=== PATIENT | male | born 1930 | race Caucasian/White ===

== ENCOUNTER 2016-04-24 11:00 | Inpatient (IN) | payer MEDICARE, OTHER ==
[2016-04-24 12:23] LABS: Basophils # (A) 0.1 k/uL (0-0.2); Basophils % (A) 0 %; CH 31.9; CHCM 34.1; Eosinophils # (A) 0.1 k/uL (0-0.7); Eosinophils % (A) 1 %; HCT 41.8 % (39.0-53.0); HGB 14.2 gm/dL (13.0-17.5); Luc # (Auto) 0.17; Luc % (Auto) 1; Lymphocytes # (A) 0.8 k/uL (1.0-4.8); Lymphocytes % (A) 4 %; MCH 31.8 pg (25.0-35.0); MCHC 33.9 g/dL (31.0-37.0); Mean Platelet Volume 9.3; Monocytes # (A) 0.8 k/uL (0-1.0); Monocytes % (A) 4 %; Neutrophils # (A) 19.4 k/uL (1.3-7.7); Neutrophils % (A) 91 %; RBC 4.45 m/uL (4.30-5.90); RDW 13.7 % (11.5-15.5); WBC 21.4 k/uL (3.8-10.6); WBC (Perox) 22.09
[2016-04-24 12:33] LABS: Potassium 4.8 mmol/L (3.5-5.1); Total Bilirubin 0.6 mg/dL (0.2-1.3); Total Protein 6.5 g/dL (6.3-8.2)
[2016-04-24 12:49] LABS: INR 1.1 (<1.1); Partial Thromboplastin Time 26.1 sec (22.0-30.0); Prothrombin Time 11.1 sec (9.0-12.0)
[2016-04-24 12:56] LABS: Creatine Kinase MB 1.2 ng/mL (0.0-2.4); Troponin I 0.014 ng/mL (0.000-0.034)
--- NOTE | 2016-04-24 13:50 | XR ---
INDICATION: Weakness COMPARISON: Chest x-ray dated 01/04/16 FINDINGS: Single view of the chest is obtained. Status post median sternotomy. Enlarged heart size. Atherosclerotic vascular disease. Stable left lower lung zone opacity. Stable trace left pleural effusion. Bony elements are within normal limits. IMPRESSION: Status post median sternotomy. Enlarged heart size. Atherosclerotic vascular disease. Stable left lower lung zone opacity. Stable trace left pleural effusion.
[2016-04-24] MEDS ORDERED: HYDROcodone/APAP 5-325MG 1 EACH TAB PO STA (14:41)
[2016-04-24 15:26] LABS: Amorphous Sediment,Urine Occasional /hpf; Appearance,Urine Clear (Clear); Bacteria,Urine Many /hpf; Bilirubin,Urine Negative (Negative); Glucose,Urine (UA) Negative (Negative); Ketones,Urine Negative (Negative); Leukocyte Esterase,Urine Large (Negative); Mucus,Urine Rare /hpf; Nitrite,Urine Negative (Negative); PH, Urine 5.5 (5.0-8.0); Particle Count 4299; Protein,Urine 1+ (Negative); RBC,Urine 2 /hpf (0-5); Specific Gravity,Urine 1.013 (1.001-1.035); Squamous Epithelial Cell,Urine 1 /hpf (0-4); UA Billing (MACRO vs. MICRO) MICRO; Urobilinogen,Urine <2.0 mg/dL (<2.0); WBC,Urine 64 /hpf (0-5)
[2016-04-24] MEDS ORDERED: LEVOFLOXACIN 750MG-D5W PMX 750 MG in DEXTROSE/WATER 1 150ML.BAG IVPB STA (16:07)
[2016-04-24] MEDS ORDERED: ACETAMINOPHEN TAB 325 MG TAB PO PRN (16:12)
[2016-04-24] MEDS ORDERED: NALOXONE 0.4 MG/ML 1 ML VIAL IV PRN (16:12)
[2016-04-24] MEDS ORDERED: FUROSEMIDE 20 MG TAB PO PRN (16:18)
[2016-04-24] MEDS ORDERED: NITROGLYCERIN SL TABS 0.4 MG TAB SUBLINGUAL PRN (16:18)
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
[2016-04-24] MEDS: SODIUM CHLORIDE 0.9% 1,000 ML IV SCH (16:59)
[2016-04-24 18:20] VITALS: BMI 34.0
[2016-04-24] MEDS: INSULIN LISPRO (humaLOG) 300 UNIT/3 ML VIAL SQ SCH ×3 (18:31→21:24)
[2016-04-24 20:24] LABS: Glucose,Whole Blood 173 mg/dL (75-99)
[2016-04-24] MEDS ORDERED: INSULIN GLARGINE 100 UNIT/ML 10 ML VIAL SQ SCH (21:00)
[2016-04-24] MEDS ORDERED: DIAZEPAM 5 MG TAB PO SCH (21:00)
[2016-04-24] MEDS: METOPROLOL TARTRATE 25 MG TAB PO SCH (21:24)
[2016-04-24] MEDS: FAMOTIDINE 20 MG TAB PO SCH (21:24)
[2016-04-24] MEDS: HYDROcodone/APAP 5-325MG 1 EACH TAB PO SCH (22:14)
[2016-04-25] MEDS: HYDROcodone/APAP 5-325MG 1 EACH TAB PO SCH ×2 (04:17→17:30)
[2016-04-25] MEDS ORDERED: INSULIN LISPRO (humaLOG) 300 UNIT/3 ML VIAL SQ SCH ×2 (07:30→12:30)
[2016-04-25 07:53] LABS: Glucose,Whole Blood 171 mg/dL (75-99)
[2016-04-25 08:01] LABS: Basophils # (A) 0.1 k/uL (0-0.2); Basophils % (A) 1 %; CH 31.5; Eosinophils # (A) 0.3 k/uL (0-0.7); Eosinophils % (A) 3 %; HCT 38.9 % (39.0-53.0); HDW 2.67; HGB 12.6 gm/dL (13.0-17.5); Luc % (Auto) 2; Lymphocytes # (A) 1.2 k/uL (1.0-4.8); Lymphocytes % (A) 13 %; MCH 31.2 pg (25.0-35.0); MCHC 32.5 g/dL (31.0-37.0); MCV 96.2 fL (80.0-100.0); Mean Platelet Volume 8.5; Monocytes # (A) 0.6 k/uL (0-1.0); Monocytes % (A) 6 %; Neutrophils # (A) 7.4 k/uL (1.3-7.7); Neutrophils % (A) 76 %; RBC 4.04 m/uL (4.30-5.90); RDW 13.7 % (11.5-15.5); WBC 9.7 k/uL (3.8-10.6); WBC (Perox) 9.83
[2016-04-25 08:19] LABS: Calcium 8.7 mg/dL (8.4-10.2); Potassium 4.9 mmol/L (3.5-5.1)
[2016-04-25] MEDS: INSULIN LISPRO (humaLOG) 300 UNIT/3 ML VIAL SQ SCH ×4 (08:55→17:33)
[2016-04-25] MEDS: FAMOTIDINE 20 MG TAB PO SCH (08:57)
[2016-04-25] MEDS: METOPROLOL TARTRATE 25 MG TAB PO SCH (08:58)
[2016-04-25] MEDS ORDERED: ASPIRIN 81 MG CHEW PO SCH (09:00)
[2016-04-25] MEDS ORDERED: INSULIN GLARGINE 100 UNIT/ML 10 ML VIAL SQ SCH (09:00)
[2016-04-25] MEDS ORDERED: CLOPIDOGREL 75 MG TAB PO SCH (09:00)
[2016-04-25] MEDS ORDERED: ATORVASTATIN 10 MG TAB PO SCH (09:00)
[2016-04-25] MEDS ORDERED: EZETIMIBE 10 MG TAB PO SCH (09:00)
[2016-04-25 09:08] VITALS: RESP 18; TEMP 98
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
[2016-04-25 10:09] LABS: Hemoglobin A1C 7.3 % (4.2-6.1)
[2016-04-25 11:50] LABS: Glucose,Whole Blood 168 mg/dL (75-99)
[2016-04-25] MEDS ORDERED: LEVOFLOXACIN 500 MG TAB PO SCH (17:00)
[2016-04-25] MEDS ORDERED: LEVOFLOXACIN 250 MG TAB PO SCH (17:00)
[2016-04-25 17:27] LABS: Glucose,Whole Blood 93 mg/dL (75-99)
[2016-04-25] MEDS: SODIUM CHLORIDE 0.9% 1,000 ML IV SCH (17:31)
[2016-04-25 17:43] VITALS: BP 130/60; PULSE 69
--- NOTE | 2016-04-26 08:17 | DS ---
DATE OF ADMISSION: 04/24/2016 DATE OF DISCHARGE: 04/25/2016 FINAL DIAGNOSES: 1. Acute severe urinary tract infection causing severe medical debility, patient not able to get her activities of daily living on presentation. 2. Coronary artery disease, prior history of coronary artery bypass. 3. Chronic kidney disease stage III from diabetic nephropathy. 4. Hyperlipidemia. 5. Primary osteoarthritis in multiple joints, bilateral. 6. Left below knee amputation with processes chronic. 7. Chronic obstructive pulmonary disease in an ex-smoker. 8. Diabetes mellitus type 2, chronically on insulin. Patient presented extremely weak, tired decreased appetite, rundown, found to have a UTI, having received antibiotics. She was feeling much better. On exam, lungs are clear. CARDIOVASCULAR: First and second sounds normal. PSYCH: Alert and oriented x3. White count normal. Patient's BUN and creatinine were 37 and 1.87. DISCHARGE MEDICATIONS: 1. Valium 5 mg p.o. q.h.s. 2. V[place]orin 10/20 one tablet p.o. daily. 3. [place] 5 one-half tablet b.i.d. 4. Aspirin 81 mg daily. 5. Plavix 75 mg p.o. daily. 6. Nitrostat 0.4 sublingual q.5 p.r.n. 7. Vitamin D2 fifty thousand units on Monday. 8. Lasix 20 mg p.o. daily. 9. NovoLog 6 units with breakfast, 12 with lunch, 24 with supper. 10. 20 of Lantus in the morning, 40 of Lantus in the evening. 11. Lopressor 25 mg p.o. b.i.d. 12. Levaquin 250 mg a day for [address] Pope in one week. DC planning more than 35 minutes.
[2016-04-26] MEDS ORDERED: FAMOTIDINE 20 MG TAB PO SCH (09:00)
[2016-04-27] MEDS ORDERED: ERGOCALCIFEROL 50,000 UNIT CAP PO SCH (09:00)
== END 2016-04-25 17:55 | disposition home or self-care (01) | DRG 690 ==
LOC: EC 11:00 → OBSVTOIN 16:58 → 5MS5E 16:58
PROVIDERS: ADMIT Hospitalist; ATTEND Hospitalist
DX: N39.0 Urinary tract infection, site not specified (principal); E11.21 Type 2 diabetes mellitus with diabetic nephropathy; I48.0 Paroxysmal atrial fibrillation; J44.9 Chronic obstructive pulmonary disease, unspecified; E11.22 Type 2 diabetes mellitus with diabetic chronic kidney disease; E78.5 Hyperlipidemia, unspecified; I25.10 Atherosclerotic heart disease of native coronary artery without angina pectoris; M15.9 Polyosteoarthritis, unspecified; N18.3 Chronic kidney disease, stage 3 (moderate); F41.9 Anxiety disorder, unspecified; K57.90 Diverticulosis of intestine, part unspecified, without perforation or abscess without bleeding; Z79.02 Long term (current) use of antithrombotics/antiplatelets; Z79.4 Long term (current) use of insulin; Z79.82 Long term (current) use of aspirin; Z79.899 Other long term (current) drug therapy; Z87.891 Personal history of nicotine dependence; Z89.512 Acquired absence of left leg below knee; Z95.1 Presence of aortocoronary bypass graft; Z88.2 Allergy status to sulfonamides
CPT/HCPCS: 36415; 71010; 80048; 80053; 81001; 82550; 82553; 83036; 83605; 84484; 85025; 85610; 85730; 87502; 93005; 96365; 99285

== ENCOUNTER 2016-10-02 15:37 | Inpatient (IN) | payer MEDICARE, OTHER ==
[2016-10-02] MEDS ORDERED: ONDANSETRON 4 MG/2 ML VIAL IVP STA (16:03)
[2016-10-02] MEDS ORDERED: SODIUM CHLORIDE 0.9% 500 ML IV ONE ×2 (16:03→16:59)
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
[2016-10-02 16:29] LABS: Basophils # (A) 0.1 k/uL (0-0.2); Basophils % (A) 0 %; CH 32.5; CHCM 33.9; Eosinophils % (A) 0 %; HCT 40.1 % (39.0-53.0); HDW 2.66; HGB 13.3 gm/dL (13.0-17.5); Luc # (Auto) 0.12; Luc % (Auto) 1; Lymphocytes # (A) 0.5 k/uL (1.0-4.8); Lymphocytes % (A) 3 %; MCHC 33.3 g/dL (31.0-37.0); MCV 96.3 fL (80.0-100.0); Mean Platelet Volume 10.5; Monocytes # (A) 0.6 k/uL (0-1.0); Monocytes % (A) 4 %; Neutrophils # (A) 12.2 k/uL (1.3-7.7); Neutrophils % (A) 91 %; RBC 4.16 m/uL (4.30-5.90); WBC 13.4 k/uL (3.8-10.6); WBC (Perox) 13.81
[2016-10-02 16:38] LABS: ALT 19 U/L (21-72); AST 35 U/L (17-59); Alkaline Phosphatase 56 U/L (38-126); Amylase <30 U/L (30-110); Anion Gap 12 mmol/L; Blood Urea Nitrogen 52 mg/dL (9-20); Calcium 8.5 mg/dL (8.4-10.2); Carbon Dioxide 18 mmol/L (22-30); Chloride 103 mmol/L (98-107); Glucose 217 mg/dL (74-99); Non-African American GFR(MDRD) 32 (>60 ml/min/1.73 sqM); Potassium 5.9 mmol/L (3.5-5.1); Sodium 133 mmol/L (137-145); Total Bilirubin 1.4 mg/dL (0.2-1.3); Total Protein 6.5 g/dL (6.3-8.2)
--- NOTE | 2016-10-02 16:40 | XR ---
EXAMINATION TYPE: XR chest 2V DATE OF EXAM: 10/02/2016 COMPARISON: 04/24/2016 HISTORY: Fever TECHNIQUE: Frontal and lateral views of the chest are obtained. FINDINGS: There is general coarsening of interstitial markings and more on the left side. Heart size is normal. There are sternal wires. There is no gross heart failure. Bony thorax is intact. IMPRESSION: Pulmonary fibrotic changes similar to old exam. No heart failure. Pleural diaphragmatic scarring at the left lung base. Left-sided pneumonia cannot be entirely excluded.
[2016-10-02 16:41] LABS: INR 1.2 (<1.2); Prothrombin Time 11.5 sec (9.0-12.0)
[2016-10-02 18:01] LABS: Mucus,Urine Rare /hpf; Particle Count 31474; RBC,Urine 7 /hpf (0-5); Squamous Epithelial Cell,Urine 2 /hpf (0-4); WBC,Urine 138 /hpf (0-5)
[2016-10-02 18:11] LABS: Amorphous Sediment,Urine Rare /hpf; Appearance,Urine Cloudy (Clear); Bacteria,Urine Many /hpf; Bilirubin,Urine Negative (Negative); Glucose,Urine (UA) Negative (Negative); Ketones,Urine Trace (Negative); Leukocyte Esterase,Urine Large (Negative); Nitrite,Urine Negative (Negative); PH, Urine 5.5 (5.0-8.0); Protein,Urine 1+ (Negative); Specific Gravity,Urine 1.012 (1.001-1.035); UA Billing (MACRO vs. MICRO) MICRO; Urobilinogen,Urine <2.0 mg/dL (<2.0)
[2016-10-02] MEDS ORDERED: AZITHROMYCIN 500 MG in SODIUM CHLORIDE 0.9% 250 ML IVPB STA (18:23)
[2016-10-02] MEDS ORDERED: PNEUMONIA PROTOCOL UTILIZED 1 EACH MISC PO PRN (18:25)
[2016-10-02] MEDS: SODIUM CHLORIDE 0.9% 1,000 ML IV SCH (19:04)
[2016-10-02] MEDS ORDERED: HYDROcodone/APAP 5-325MG 1 EACH TAB PO STA ×2 (20:20)
[2016-10-02] MEDS: HYDROcodone/APAP 5-325MG 1 EACH TAB PO SCH (21:02)
[2016-10-02 21:29] LABS: Glucose,Whole Blood 143 mg/dL (75-99)
[2016-10-02 21:41] LABS: Hemoglobin A1C 7.4 % (4.2-6.1)
[2016-10-02] MEDS: INSULIN GLARGINE 100 UNIT/ML 10 ML VIAL SQ SCH (21:50)
[2016-10-02] MEDS: INSULIN LISPRO (humaLOG) 300 UNIT/3 ML VIAL SQ SCH (21:50)
[2016-10-02] MEDS: METOPROLOL TARTRATE 25 MG TAB PO SCH (21:51)
[2016-10-02 23:07] VITALS: BMI 34.4
[2016-10-03 05:57] LABS: Glucose,Whole Blood 101 mg/dL (75-99)
[2016-10-03] MEDS: INSULIN LISPRO (humaLOG) 300 UNIT/3 ML VIAL SQ SCH ×4 (06:13→21:40)
[2016-10-03] MEDS: IPRATROPIUM-ALBUTEROL 3 ML NEB INHALATION PRN ×3 (08:22→19:45)
[2016-10-03] MEDS: HYDROcodone/APAP 5-325MG 1 EACH TAB PO SCH ×2 (09:55→21:16)
[2016-10-03] MEDS: METOPROLOL TARTRATE 25 MG TAB PO SCH ×2 (09:56→21:40)
[2016-10-03] MEDS: AZITHROMYCIN 500 MG in SODIUM CHLORIDE 0.9% 250 ML IVPB SCH (09:56)
[2016-10-03] MEDS: ATORVASTATIN 10 MG TAB PO SCH (09:56)
[2016-10-03] MEDS: ASPIRIN 81 MG CHEW PO SCH (09:56)
[2016-10-03] MEDS: FUROSEMIDE 20 MG TAB PO SCH (09:56)
[2016-10-03] MEDS: CLOPIDOGREL 75 MG TAB PO SCH (09:56)
[2016-10-03] MEDS: INSULIN GLARGINE 100 UNIT/ML 10 ML VIAL SQ SCH ×2 (10:07→21:40)
--- NOTE | 2016-10-03 11:36 | XR ---
EXAMINATION TYPE: XR chest 2V DATE OF EXAM: 10/03/2016 COMPARISON: Prior chest x-ray dated 10/02/2016, CT 02/12/2014 HISTORY: Pneumonia TECHNIQUE: Frontal and lateral views of the chest are obtained. FINDINGS: Interstitial changes, probable chronic pleural reaction again noted. Patient is post media n sternotomy. Heart size is stable. There is underlying emphysema. No evident pneumothorax or pleural effusion. IMPRESSION: Interstitial lung disease. Postop changes. Correlate to exclude pulmonary venous hypertension and interstitial edema.
[2016-10-03 12:03] LABS: Basophils % (A) 0 %; CH 31.5; CHCM 33.4; Eosinophils % (A) 0 %; HCT 34.9 % (39.0-53.0); HDW 2.79; HGB 12.1 gm/dL (13.0-17.5); Luc # (Auto) 0.19; Luc % (Auto) 3; Lymphocytes # (A) 0.5 k/uL (1.0-4.8); Lymphocytes % (A) 7 %; MCH 32.9 pg (25.0-35.0); MCHC 34.7 g/dL (31.0-37.0); MCV 94.8 fL (80.0-100.0); Mean Platelet Volume 9.4; Monocytes # (A) 0.5 k/uL (0-1.0); Monocytes % (A) 6 %; Neutrophils # (A) 6.3 k/uL (1.3-7.7); Neutrophils % (A) 84 %; RBC 3.68 m/uL (4.30-5.90); RDW 13.3 % (11.5-15.5); WBC 7.6 k/uL (3.8-10.6); WBC (Perox) 7.71
[2016-10-03 12:05] LABS: Calcium 8.1 mg/dL (8.4-10.2); Potassium 4.3 mmol/L (3.5-5.1)
[2016-10-03] MEDS: EZETIMIBE 10 MG TAB PO SCH (13:31)
[2016-10-03] MEDS: ENOXAPARIN 30 MG/0.3 ML SYRINGE SQ SCH (13:35)
[2016-10-03 16:41] LABS: Glucose,Whole Blood 103 mg/dL (75-99)
[2016-10-03] MEDS: SODIUM CHLORIDE 0.9% 1,000 ML IV SCH ×2 (17:25→21:40)
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
[2016-10-03 21:33] LABS: Glucose,Whole Blood 213 mg/dL (75-99)
[2016-10-04 05:55] LABS: Glucose,Whole Blood 171 mg/dL (75-99)
[2016-10-04 06:49] LABS: Basophils % (A) 1 %; CH 32.2; Eosinophils # (A) 0.1 k/uL (0-0.7); Eosinophils % (A) 2 %; HCT 37.2 % (39.0-53.0); HDW 2.75; HGB 12.1 gm/dL (13.0-17.5); Luc # (Auto) 0.21; Luc % (Auto) 4; Lymphocytes # (A) 0.6 k/uL (1.0-4.8); Lymphocytes % (A) 11 %; MCH 31.9 pg (25.0-35.0); MCHC 32.6 g/dL (31.0-37.0); MCV 98.1 fL (80.0-100.0); Mean Platelet Volume 10.1; Monocytes # (A) 0.5 k/uL (0-1.0); Monocytes % (A) 9 %; Neutrophils # (A) 4.5 k/uL (1.3-7.7); Neutrophils % (A) 75 %; RBC 3.79 m/uL (4.30-5.90); RDW 14.1 % (11.5-15.5); WBC (Perox) 6.39
[2016-10-04 06:55] LABS: Calcium 8.1 mg/dL (8.4-10.2); Potassium 4.5 mmol/L (3.5-5.1)
[2016-10-04] MEDS: INSULIN LISPRO (humaLOG) 300 UNIT/3 ML VIAL SQ SCH ×6 (07:04→21:05)
[2016-10-04] MEDS: IPRATROPIUM-ALBUTEROL 3 ML NEB INHALATION PRN ×2 (08:02→11:57)
[2016-10-04] MEDS: ATORVASTATIN 10 MG TAB PO SCH (08:24)
[2016-10-04] MEDS: ENOXAPARIN 30 MG/0.3 ML SYRINGE SQ SCH (08:24)
[2016-10-04] MEDS: ASPIRIN 81 MG CHEW PO SCH (08:24)
[2016-10-04] MEDS: EZETIMIBE 10 MG TAB PO SCH (08:24)
[2016-10-04] MEDS: FUROSEMIDE 20 MG TAB PO SCH (08:24)
[2016-10-04] MEDS: CLOPIDOGREL 75 MG TAB PO SCH (08:24)
[2016-10-04] MEDS: METOPROLOL TARTRATE 25 MG TAB PO SCH ×2 (08:25→20:35)
[2016-10-04] MEDS: HYDROcodone/APAP 5-325MG 1 EACH TAB PO SCH ×2 (08:29→20:34)
[2016-10-04] MEDS: AZITHROMYCIN 500 MG in SODIUM CHLORIDE 0.9% 250 ML IVPB SCH (08:30)
[2016-10-04 11:55] LABS: Glucose,Whole Blood 129 mg/dL (75-99)
[2016-10-04] MEDS: INSULIN GLARGINE 100 UNIT/ML 10 ML VIAL SQ SCH ×2 (12:26→21:14)
[2016-10-04 16:40] LABS: Glucose,Whole Blood 151 mg/dL (75-99)
[2016-10-04] MEDS ORDERED: INSULIN LISPRO (humaLOG) 300 UNIT/3 ML VIAL SQ SCH (17:30)
[2016-10-04] MEDS: SODIUM CHLORIDE 0.9% 1,000 ML IV SCH (20:33)
[2016-10-04 21:01] LABS: Glucose,Whole Blood 103 mg/dL (75-99)
[2016-10-04 22:52] VITALS: RESP 20
[2016-10-05] MEDS: SODIUM CHLORIDE 0.9% 1,000 ML IV SCH ×2 (00:09→12:39)
[2016-10-05 07:41] VITALS: PULSE 66; TEMP 98.1
[2016-10-05] MEDS: HYDROcodone/APAP 5-325MG 1 EACH TAB PO SCH (08:47)
[2016-10-05] MEDS: INSULIN GLARGINE 100 UNIT/ML 10 ML VIAL SQ SCH (08:48)
[2016-10-05] MEDS: INSULIN LISPRO (humaLOG) 300 UNIT/3 ML VIAL SQ SCH ×4 (08:50→12:39)
[2016-10-05] MEDS ORDERED: ENOXAPARIN 40 MG/0.4 ML SYRINGE SQ SCH (09:00)
[2016-10-05 09:12] LABS: Glucose,Whole Blood 100 mg/dL (75-99)
[2016-10-05 09:25] LABS: Basophils # (A) 0.1 k/uL (0-0.2); Basophils % (A) 1 %; CH 32.3; CHCM 33.5; Eosinophils # (A) 0.4 k/uL (0-0.7); Eosinophils % (A) 4 %; HCT 40.9 % (39.0-53.0); HDW 2.83; HGB 13.2 gm/dL (13.0-17.5); Luc % (Auto) 3; Lymphocytes # (A) 0.7 k/uL (1.0-4.8); Lymphocytes % (A) 8 %; MCH 31.5 pg (25.0-35.0); MCHC 32.4 g/dL (31.0-37.0); MCV 97.1 fL (80.0-100.0); Mean Platelet Volume 10.2; Monocytes # (A) 0.6 k/uL (0-1.0); Monocytes % (A) 7 %; Neutrophils # (A) 6.4 k/uL (1.3-7.7); Neutrophils % (A) 77 %; RBC 4.21 m/uL (4.30-5.90); RDW 13.9 % (11.5-15.5); WBC 8.3 k/uL (3.8-10.6); WBC (Perox) 8.25
[2016-10-05 09:30] LABS: Calcium 8.2 mg/dL (8.4-10.2); Potassium 3.9 mmol/L (3.5-5.1)
[2016-10-05] MEDS: FUROSEMIDE 20 MG TAB PO SCH (10:40)
[2016-10-05] MEDS: EZETIMIBE 10 MG TAB PO SCH (10:40)
[2016-10-05] MEDS: CLOPIDOGREL 75 MG TAB PO SCH (10:41)
[2016-10-05] MEDS: ASPIRIN 81 MG CHEW PO SCH (10:41)
[2016-10-05] MEDS: ATORVASTATIN 10 MG TAB PO SCH (10:41)
[2016-10-05] MEDS: METOPROLOL TARTRATE 25 MG TAB PO SCH (10:41)
[2016-10-05] MEDS: AZITHROMYCIN 500 MG in SODIUM CHLORIDE 0.9% 250 ML IVPB SCH (11:52)
[2016-10-05 12:11] LABS: Glucose,Whole Blood 53 mg/dL (75-99)
[2016-10-05] MEDS ORDERED: HYDROcodone/APAP 5-325MG 1 EACH TAB PO PRN (12:19)
[2016-10-05 12:33] LABS: Glucose,Whole Blood 58 mg/dL (75-99)
[2016-10-05 12:40] VITALS: BP 142/68
[2016-10-05 12:41] LABS: Glucose,Whole Blood 94 mg/dL (75-99)
[2016-10-05 15:29] LABS: Appearance,Urine Clear (Clear); Bilirubin,Urine Negative (Negative); Glucose,Urine (UA) Negative (Negative); Ketones,Urine Negative (Negative); Leukocyte Esterase,Urine Negative (Negative); Nitrite,Urine Negative (Negative); Protein,Urine Negative (Negative); Specific Gravity,Urine 1.004 (1.001-1.035); UA Billing (MACRO vs. MICRO) CHEM; Urobilinogen,Urine <2.0 mg/dL (<2.0)
[2016-10-06] MEDS ORDERED: AZITHROMYCIN 500 MG TAB PO SCH (09:00)
--- NOTE | 2016-10-09 12:41 | P.PN ---
Progress Note - Text Date of service-10/04/2016 Presenting complaint-chills and rigors Interval history: Patient admitted with chills and right is felt to be acute UTI. Feels a little bit better. Did tolerate some diet. Laying in bed. Review of systems: Was done for constitutional, cardiovascular, GI, pulmonary. Genitourinary relevant finding as above Current medications are reviewed in the computer Physical exam: VITAL SIGNS: 98.1, 66, 20, 196/79, repeat 142/68, 94% on 2 L GENERAL: Laying in bed, not in distress EYES: Pupils equal. Conjunctiva normal. NECK: JVD not raised; masses not palpable. HEART: First and second heart sounds are normal; no edema. LUNGS: Respiratory rate normal; decreased breath sounds. ABDOMEN: Soft, nontender, liver spleen not palpable, no masses palpable. PSYCH: Alert and oriented x3; mood and affect normal. EXTREMITIES: Left below-knee amputation Investigations: White count 8.3, potassium 3.9, BUN 31, creatinine 1.50 Assessment: -Acute UTI causing sepsis, present on admission cultures pending. 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 Continue current medication treatment plan. Await culture results.
--- NOTE | 2016-10-09 13:04 | P.DS ---
Providers Date of admission: 10/02/16 18:20 Expected date of discharge: 10/05/16 Attending physician: Mg Wade Primary care physician: Prashanth Pope [facility] Course: Final diagnosis -Acute UTI causing sepsis, present on admission, secondary to E. 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 coli. Patient doing well by the time of discharge, afebrile asymptomatic rhythm with a normal white count. Doing well. Physical exam: Lungs-decreased breath sounds, cardiovascular heart sounds irregular, patient alert Patient Condition at Discharge: Fair Plan - Discharge Summary New Discharge Prescriptions: New Cephalexin [Keflex] 250 mg PO Q6HR #28 cap INSULIN LISPRO (humaLOG) [humaLOG (formulary)] 0 unit SQ ACHS vial Continue Ezetimibe/Simvastatin [Vytorin 10-20 mg Tablet] 1 tab PO DAILY Hydrocodone/Acetaminophen [[place] 5-325] 0.5 tab PO BID Aspirin 81 mg PO DAILY chew Clopidogrel [Plavix] 75 mg PO DAILY #30 tab Nitroglycerin Sl Tabs [Nitrostat] 0.4 mg SUBLINGUAL Q5M PRN #25 tab PRN Reason: Chest Pain Insulin Aspart [NovoLOG] 12 unit SQ AC-LUNCH Insulin Aspart [NovoLOG] 24 unit SQ AC-SUPPER Insulin Aspart [NovoLOG] 6 units SQ AC-BRKFST Insulin Glargine [Lantus] 30 unit SQ QAM Insulin Glargine [Lantus] 40 unit SQ HS Furosemide [Lasix] 20 mg PO DAILY Metoprolol Tartrate [Lopressor] 25 mg PO BID Discharge Medication List Ezetimibe/Simvastatin [Vytorin 10-20 mg Tablet] 1 tab PO DAILY 02/12/14 [History ] Hydrocodone/Acetaminophen [[place] 5-325] 0.5 tab PO BID 11/07/16 [History] Aspirin 81 mg PO DAILY chew 01/07/16 [Rx] Clopidogrel [Plavix] 75 mg PO DAILY #30 tab 01/07/16 [Rx] Nitroglycerin Sl Tabs [Nitrostat] 0.4 mg SUBLINGUAL Q5M PRN #25 tab 01/07/16 [Rx ] Furosemide [Lasix] 20 mg PO DAILY 04/24/16 [History] Insulin Aspart [NovoLOG] 6 units SQ AC-BRKFST 04/24/16 [History] Insulin Aspart [NovoLOG] 12 unit SQ AC-LUNCH 04/24/16 [History] Insulin Aspart [NovoLOG] 24 unit SQ AC-SUPPER 04/24/16 [History] Insulin Glargine [Lantus] 30 unit SQ QAM 04/24/16 [History] Insulin Glargine [Lantus] 40 unit SQ HS 04/24/16 [History] Metoprolol Tartrate [Lopressor] 25 mg PO BID 10/02/16 [History] Cephalexin [Keflex] 250 mg PO Q6HR #28 cap 10/05/16 [Rx] INSULIN LISPRO (humaLOG) [humaLOG (formulary)] 0 unit SQ ACHS vial 10/05/16 [Rx ] Follow up Appointment(s)/Referral(s): [facility], [NON-STAFF] - Prashanth Pope MD [Primary Care Provider] - 3 Days (Office closed, please call for appointment. ) Patient Instructions/Handouts: Heart Failure (DC), Urinary Tract Infection in Men (DC), Pneumonia (DC) Activity/Diet/Wound Care/Special Instructions: Cardiac, diabetic diet. Fall precautions. Up with assistance and prosthetic. Discharge Disposition: HOME WITH HOME HEALTH SERVICES
== END 2016-10-05 16:18 | disposition home health service (06) | DRG 872 ==
LOC: EC 15:37 → 6SEL 18:20 → 4MS4W 10-04 22:24
PROVIDERS: ADMIT Hospitalist; ATTEND Hospitalist
DX: A41.51 Sepsis due to Escherichia coli [E. coli] (principal); N17.9 Acute kidney failure, unspecified; E11.22 Type 2 diabetes mellitus with diabetic chronic kidney disease; E87.5 Hyperkalemia; I48.1 Persistent atrial fibrillation; N39.0 Urinary tract infection, site not specified; I13.0 Hypertensive heart and chronic kidney disease with heart failure and stage 1 through stage 4 chronic kidney disease, or unspecified chronic kidney disease; E86.0 Dehydration; I48.0 Paroxysmal atrial fibrillation; I50.9 Heart failure, unspecified; J44.9 Chronic obstructive pulmonary disease, unspecified; E78.5 Hyperlipidemia, unspecified; I25.10 Atherosclerotic heart disease of native coronary artery without angina pectoris; N18.3 Chronic kidney disease, stage 3 (moderate); R09.02 Hypoxemia; R74.8 Abnormal levels of other serum enzymes; R53.1 Weakness; H91.90 Unspecified hearing loss, unspecified ear; R11.0 Nausea; R26.9 Unspecified abnormalities of gait and mobility; R50.9 Fever, unspecified; I45.10 Unspecified right bundle-branch block; M19.91 Primary osteoarthritis, unspecified site; F41.9 Anxiety disorder, unspecified; R91.8 Other nonspecific abnormal finding of lung field; H26.9 Unspecified cataract; M79.1 Myalgia; Z95.1 Presence of aortocoronary bypass graft; Z79.899 Other long term (current) drug therapy; Z82.3 Family history of stroke; Z87.891 Personal history of nicotine dependence; Z89.512 Acquired absence of left leg below knee; Z79.4 Long term (current) use of insulin; Z88.2 Allergy status to sulfonamides; Z86.19 Personal history of other infectious and parasitic diseases; Z87.438 Personal history of other diseases of male genital organs; Z87.01 Personal history of pneumonia (recurrent); Z87.19 Personal history of other diseases of the digestive system; Z86.69 Personal history of other diseases of the nervous system and sense organs; Z79.02 Long term (current) use of antithrombotics/antiplatelets; Z99.3 Dependence on wheelchair; Z79.82 Long term (current) use of aspirin; Z79.891 Long term (current) use of opiate analgesic; Z80.9 Family history of malignant neoplasm, unspecified; Z81.1 Family history of alcohol abuse and dependence; V89.2XXS Person injured in unspecified motor-vehicle accident, traffic, sequela
CPT/HCPCS: 36415; 71020; 80048; 80053; 81001; 81003; 82150; 83036; 83605; 83690; 83880; 84484; 85025; 85610; 85730; 87040; 87077; 87086; 87186; 93005; 94640; 94760; 96361; 96365; 99285

== ENCOUNTER 2017-02-23 11:32 | Emergency (ER) | payer MEDICARE, OTHER ==
[2017-02-23] MEDS ORDERED: LIDOCAINE/EPINEPHR/TETRACAINE 5 ML BOTTLE TOPICAL ONE (12:02)
[2017-02-23] MEDS ORDERED: HYDROcodone/APAP 5-325MG 1 EACH TAB PO STA (12:03)
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
[2017-02-23] MEDS ORDERED: SILVER NITRATE APPLICATOR 1 EACH STICK..EA. TOPICAL STA (12:39)
[2017-02-23 14:01] VITALS: BP 135/63; PULSE 87; RESP 16; TEMP 97.3
== END 2017-02-23 14:13 | disposition home or self-care (01) ==
LOC: EC 11:32
DX: R04.0 Epistaxis (principal); M25.551 Pain in right hip; M25.552 Pain in left hip; G89.29 Other chronic pain; E78.5 Hyperlipidemia, unspecified; I25.10 Atherosclerotic heart disease of native coronary artery without angina pectoris; E11.9 Type 2 diabetes mellitus without complications; Z79.4 Long term (current) use of insulin; F41.9 Anxiety disorder, unspecified; Z87.891 Personal history of nicotine dependence; Z79.899 Other long term (current) drug therapy; Z88.2 Allergy status to sulfonamides; Z86.79 Personal history of other diseases of the circulatory system
CPT/HCPCS: 30901; 99283

== ENCOUNTER 2017-06-28 08:05 | Observation (INO) | payer MEDICARE, OTHER ==
[2017-06-28] MEDS ORDERED: NITROGLYCERIN OINT 1 INCH/GM PACKET TOPICAL STA (08:10)
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
--- NOTE | 2017-06-28 08:50 | XR ---
EXAMINATION TYPE: XR chest 2V DATE OF EXAM: 06/28/2017 COMPARISON: 02/21/2017 HISTORY: Shortness of breath TECHNIQUE: Frontal and lateral views of the chest are obtained. FINDINGS: Scattered senescent parenchymal changes noted. Hyperinflation compatible with COPD. Chronic left-side d pleural parenchymal opacity. No evidence for infiltrate. No evidence for atelectasis. Heart size is stable. Mediastinal structures are stable and grossly unremarkable. No evidence for hilar prominence. Degenerative changes dorsal spine. IMPRESSION: 1. Chronic changes without evidence for acute pulmonary disease.
[2017-06-28 08:53] LABS: Basophils # (A) 0.1 k/uL (0-0.2); Basophils % (A) 1 %; Eosinophils # (A) 0.5 k/uL (0-0.7); Eosinophils % (A) 4 %; HCT 43.6 % (39.0-53.0); HGB 14.4 gm/dL (13.0-17.5); Lymphocytes # (A) 1.6 k/uL (1.0-4.8); Lymphocytes % (A) 13 %; MCH 30.3 pg (25.0-35.0); MCHC 33.1 g/dL (31.0-37.0); MCV 91.4 fL (80.0-100.0); Mean Platelet Volume 9.6; Monocytes # (A) 0.7 k/uL (0-1.0); Monocytes % (A) 6 %; Neutrophils # (A) 8.8 k/uL (1.3-7.7); Neutrophils % (A) 75 %; Platelet Count 257 k/uL (150-450); RBC 4.77 m/uL (4.30-5.90); RDW 13.8 % (11.5-15.5); WBC 11.8 k/uL (3.8-10.6)
[2017-06-28 09:00] LABS: INR 1.1 (<1.2); Prothrombin Time 10.7 sec (9.0-12.0)
[2017-06-28 09:04] LABS: Albumin 3.7 g/dL (3.5-5.0); Calcium 9.1 mg/dL (8.4-10.2); Magnesium 2.1 mg/dL (1.6-2.3); Potassium 4.5 mmol/L (3.5-5.1); Total Bilirubin 0.5 mg/dL (0.2-1.3); Total Protein 6.4 g/dL (6.3-8.2)
[2017-06-28 09:14] LABS: Creatine Kinase 52 U/L (55-170)
[2017-06-28 09:28] LABS: Creatine Kinase MB 0.8 ng/mL (0.0-2.4); Troponin I <0.012 ng/mL (0.000-0.034)
[2017-06-28] MEDS ORDERED: NITROGLYCERIN SL TABS 0.4 MG TAB SUBLINGUAL PRN ×2 (10:26→16:41)
[2017-06-28] MEDS ORDERED: HEPARIN SODIUM,PORCINE 5,000 UNIT/ML 1 ML VIAL IV ONE (10:29)
[2017-06-28] MEDS ORDERED: HEPARIN SOD,PORK IN 0.45% NACL 25,000 UNIT in 0.45% NACL 1 500ML.BAG IV SCH (10:30)
[2017-06-28] MEDS: HYDROcodone/APAP 5-325MG 1 EACH TAB PO PRN ×2 (11:40→23:29)
[2017-06-28 15:28] LABS: Creatine Kinase MB 0.8 ng/mL (0.0-2.4); Troponin I 0.013 ng/mL (0.000-0.034)
[2017-06-28] MEDS ORDERED: DIAZEPAM 5 MG TAB PO PRN (16:41)
[2017-06-28] MEDS ORDERED: HYDROcodone/APAP 5-325MG 1 EACH TAB PO PRN (16:41)
[2017-06-28 16:58] LABS: Glucose,Whole Blood 155 mg/dL (75-99)
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
[2017-06-28] MEDS: INSULIN ASPART 100 UNIT/ML 1 ML 10 ML VIAL SQ SCH (17:34)
[2017-06-28] MEDS: NITROGLYCERIN OINT 1 INCH/GM PACKET TOPICAL SCH (20:37)
[2017-06-28 20:45] LABS: Creatine Kinase MB 0.9 ng/mL (0.0-2.4)
[2017-06-28] MEDS ORDERED: ATORVASTATIN 10 MG TAB PO SCH (21:00)
[2017-06-28] MEDS ORDERED: EZETIMIBE 10 MG TAB PO SCH (21:00)
[2017-06-28] MEDS ORDERED: INSULIN DETEMIR 100 UNIT/ML 10 ML VIAL SQ SCH (21:00)
[2017-06-28 21:25] LABS: Troponin I 0.02 ng/mL (0.000-0.034)
[2017-06-28 21:27] LABS: Glucose,Whole Blood 58 mg/dL (75-99)
[2017-06-28 21:49] LABS: Glucose,Whole Blood 68 mg/dL (75-99)
[2017-06-28 22:18] LABS: Glucose,Whole Blood 98 mg/dL (75-99)
[2017-06-28] MEDS: FUROSEMIDE 20 MG TAB PO SCH (23:23)
[2017-06-28] MEDS: METOPROLOL TARTRATE 25 MG TAB PO SCH (23:29)
[2017-06-29] MEDS ORDERED: HEPARIN SODIUM,PORCINE 5,000 UNIT/ML 1 ML VIAL IV PRN (00:04)
[2017-06-29] MEDS: NITROGLYCERIN OINT 1 INCH/GM PACKET TOPICAL SCH ×2 (00:08→06:47)
[2017-06-29 01:25] LABS: Cholesterol 97 mg/dL (<200); HDL Cholesterol 36 mg/dL (40-60); LDL Cholesterol,Calculated 41 mg/dL (0-99); Triglycerides 98 mg/dL (<150)
[2017-06-29 07:06] LABS: Glucose,Whole Blood 136 mg/dL (75-99)
[2017-06-29] MEDS ORDERED: INSULIN ASPART 100 UNIT/ML 1 ML 10 ML VIAL SQ SCH ×2 (07:30→12:30)
[2017-06-29 08:27] VITALS: RESP 18
[2017-06-29] MEDS ORDERED: ASPIRIN 325 MG TAB PO SCH (09:00)
[2017-06-29] MEDS ORDERED: CLOPIDOGREL 75 MG TAB PO SCH (09:00)
[2017-06-29] MEDS ORDERED: INSULIN DETEMIR 100 UNIT/ML 10 ML VIAL SQ SCH (09:00)
[2017-06-29 09:12] LABS: Glucose,Whole Blood 137 mg/dL (75-99)
[2017-06-29] MEDS ORDERED: ISOSORBIDE MONONITRATE ER 60 MG TAB.ER.24H PO SCH (09:45)
[2017-06-29] MEDS: FUROSEMIDE 20 MG TAB PO SCH (10:20)
[2017-06-29] MEDS ORDERED: REGADENOSON 0.4 MG/5 ML SYRINGE IV ONE (11:35)
[2017-06-29] MEDS ORDERED: AMINOPHYLLINE 500 MG/20 ML VIAL IV PRN (11:35)
[2017-06-29 12:25] LABS: Glucose,Whole Blood 138 mg/dL (75-99)
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
[2017-06-29] MEDS: HYDROcodone/APAP 5-325MG 1 EACH TAB PO PRN (14:35)
--- NOTE | 2017-06-29 14:46 | NM ---
EXAMINATION TYPE: NM stress lexiscan cardiolite DATE OF EXAM: 06/29/2017 COMPARISON: NONE HISTORY: Chest pain TECHNIQUE: After the intravenous administration of 10.3 mCi Tc 99m Sestamibi - Cardiolite resting SP ECT images acquired 45 minutes post injection. The patient received 0.4mg Lexiscan, 25.2 mCi Tc 99m Sestamibi - Stress images obtained [address] injection FINDINGS: Review of stress and rest SPECT images demonstrates no distinct perfusion abnormality. Gated analysi s shows normal wall motion with an estimated left ventricular ejection fraction of 52 %. IMPRESSION: No scintigraphic evidence for reversible ischemia.
--- NOTE | 2017-06-29 14:59 | P.DS ---
Providers Date of admission: 06/28/17 10:32 Attending physician: Rebeca Thompson Consults: 06/28/17 10:27 Consult Physician Urgent Consulting Provider: [facility] Consult Reason/Comments: Unstable angina Do you want consulting provider notified?: Yes Primary care physician: Prashanth Pope [facility] Course: 87-year-old came in with chest pressure like sensation patient underwent stress test which was negative patient was cleared by cardiology to be discharged patient will be discharged today please refer to my dictation of H&P for further details of hospitalization course and other medical problems. Imdur will be added to his coronary artery disease regimen Plan - Discharge Summary Discharge Rx Participant: No New Discharge Prescriptions: New Isosorbide Mononitrate ER [Imdur] 60 mg PO DAILY #30 tab No Action Ezetimibe/Simvastatin [Vytorin 10-20 mg Tablet] 1 tab PO HS Hydrocodone/Acetaminophen [Cameron 5-325] 1 tab PO BID PRN PRN Reason: Pain Aspirin 81 mg PO DAILY chew Clopidogrel [Plavix] 75 mg PO DAILY #30 tab Nitroglycerin Sl Tabs [Nitrostat] 0.4 mg SUBLINGUAL Q5M PRN #25 tab PRN Reason: Chest Pain Insulin Aspart [NovoLOG (formulary)] 18 unit SQ AC-SUPPER Insulin Glargine [Lantus] 30 unit SQ QAM Diazepam [Valium] 5 mg PO Q6H PRN PRN Reason: Anxiety Insulin Aspart [NovoLOG (formulary)] 8 unit SQ AC-BRKFST Insulin Aspart [NovoLOG (formulary)] 12 unit SQ AC-LUNCH Furosemide [Lasix] 20 mg PO BID Insulin Glargine [Lantus] 20 unit SQ HS Metoprolol Tartrate [Lopressor] 25 mg PO BID Discharge Medication List Ezetimibe/Simvastatin [Vytorin 10-20 mg Tablet] 1 tab PO HS 02/12/14 [History] Hydrocodone/Acetaminophen [Cameron 5-325] 1 tab PO BID PRN 01/04/16 [History] Aspirin 81 mg PO DAILY chew 01/07/16 [Rx] Clopidogrel [Plavix] 75 mg PO DAILY #30 tab 01/07/16 [Rx] Nitroglycerin Sl Tabs [Nitrostat] 0.4 mg SUBLINGUAL Q5M PRN #25 tab 11/10/16 [Rx ] Insulin Aspart [NovoLOG (formulary)] 18 unit SQ AC-SUPPER 04/24/16 [History] Insulin Glargine [Lantus] 30 unit SQ QAM 04/24/16 [History] Diazepam [Valium] 5 mg PO Q6H PRN 01/23/17 [History] Insulin Aspart [NovoLOG (formulary)] 8 unit SQ AC-BRKFST 02/20/17 [History] Insulin Aspart [NovoLOG (formulary)] 12 unit SQ AC-LUNCH 02/20/17 [History] Furosemide [Lasix] 20 mg PO BID 06/28/17 [History] Insulin Glargine [Lantus] 20 unit SQ HS 06/28/17 [History] Metoprolol Tartrate [Lopressor] 25 mg PO BID 06/28/17 [History] Isosorbide Mononitrate ER [Imdur] 60 mg PO DAILY #30 tab 06/29/17 [Rx] Follow up Appointment(s)/Referral(s): Prashanth Pope MD [Primary Care Provider] - 3 Days Discharge Disposition: HOME SELF-CARE
[2017-06-29 17:17] VITALS: BP 128/56; PULSE 57; TEMP 98
[2017-06-29 17:47] LABS: Glucose,Whole Blood 156 mg/dL (75-99)
[2017-06-29] MEDS: METOPROLOL TARTRATE 25 MG TAB PO SCH (17:51)
[2017-06-29] MEDS: INSULIN ASPART 100 UNIT/ML 1 ML 10 ML VIAL SQ SCH (18:57)
--- NOTE | 2017-07-03 10:17 | EST ---
EXERCISE STRESS AGE: 87 SEX: M HT: 5'10" WT: 235 PROTOCOL: Lexiscan Cardiolite Stress Test HEART RATE REST: 73 BLOOD PRESSURE REST: 154/60 MAXIMUM HEART RATE ACHIEVED: 90 MAXIMUM BLOOD PRESSURE: 157/45 INDICATIONS: Chest pain. CLINICAL INFORMATION: STRESS DATA: Pretesting physical examination showed a heart rate of 73, pressure is 154/60 mmHg. Baseline EKG showed sinus mechanism. A 0.4 mg of Lexiscan was given to the patient over 15 seconds per protocol. The max heart rate was 90 beats per minute and maximum pressure was 157/45 mmHg. Clinically, the patient did not have any symptoms of chest pain or discomfort and the EKG did not show any significant ST or T-wave abnormalities consistent with ischemia. CONCLUSION: 1. Nondiagnostic electrocardiogram stress testing in response to Lexiscan. 2. Please follow up on the Cardiolite portion on separate report from the Radiology Department. MMODL / IJN: [id number] /
== END 2017-06-29 20:30 | disposition home or self-care (01) ==
LOC: EC 08:05 → 3OBS 10:32
PROVIDERS: ADMIT Internal Medicine; ATTEND Internal Medicine
DX: R07.89 Other chest pain (principal); I13.0 Hypertensive heart and chronic kidney disease with heart failure and stage 1 through stage 4 chronic kidney disease, or unspecified chronic kidney disease; E11.22 Type 2 diabetes mellitus with diabetic chronic kidney disease; N18.3 Chronic kidney disease, stage 3 (moderate); I50.32 Chronic diastolic (congestive) heart failure; E11.21 Type 2 diabetes mellitus with diabetic nephropathy; I25.10 Atherosclerotic heart disease of native coronary artery without angina pectoris; I48.0 Paroxysmal atrial fibrillation; E03.9 Hypothyroidism, unspecified; E78.5 Hyperlipidemia, unspecified; H26.9 Unspecified cataract; E11.40 Type 2 diabetes mellitus with diabetic neuropathy, unspecified; K57.90 Diverticulosis of intestine, part unspecified, without perforation or abscess without bleeding; H43.393 Other vitreous opacities, bilateral; M13.0 Polyarthritis, unspecified; E04.1 Nontoxic single thyroid nodule; F41.9 Anxiety disorder, unspecified; Z87.01 Personal history of pneumonia (recurrent); Z95.1 Presence of aortocoronary bypass graft; Z89.512 Acquired absence of left leg below knee; Z87.891 Personal history of nicotine dependence; Z79.82 Long term (current) use of aspirin; Z79.02 Long term (current) use of antithrombotics/antiplatelets; Z79.4 Long term (current) use of insulin; Z79.899 Other long term (current) drug therapy; Z79.890 Hormone replacement therapy; Z88.2 Allergy status to sulfonamides; Z82.3 Family history of stroke; Z81.1 Family history of alcohol abuse and dependence; Z80.9 Family history of malignant neoplasm, unspecified
CPT/HCPCS: 99291 ×2; 96365 ×2; 96366 ×8; 36415; 93017; 83880; 80061; 80053; 82550; 82553; 83735; 84484; 85025; 85610; 85730 ×2; 71046; 78452; G0378 ×2; A9500; J1644 ×2; J2785

== ENCOUNTER 2017-08-11 14:20 | Emergency (ER) | payer MEDICARE, OTHER ==
[2017-08-11 14:40] VITALS: BP 152/70; PULSE 73; RESP 18; TEMP 96.9
[2017-08-11] MEDS ORDERED: SODIUM CHLORIDE 0.9% 1,000 ML IV STA (15:22)
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
== END 2017-08-11 17:23 | disposition home or self-care (01) ==
LOC: EC 14:20
DX: R10.9 Unspecified abdominal pain (principal); J32.9 Chronic sinusitis, unspecified; R53.1 Weakness; R53.83 Other fatigue; R43.9 Unspecified disturbances of smell and taste; E78.5 Hyperlipidemia, unspecified; I25.10 Atherosclerotic heart disease of native coronary artery without angina pectoris; I50.9 Heart failure, unspecified; E11.40 Type 2 diabetes mellitus with diabetic neuropathy, unspecified; Z87.891 Personal history of nicotine dependence; Z79.4 Long term (current) use of insulin; Z79.899 Other long term (current) drug therapy; Z88.2 Allergy status to sulfonamides; Z87.01 Personal history of pneumonia (recurrent); Z86.79 Personal history of other diseases of the circulatory system; Z53.20 Procedure and treatment not carried out because of patient's decision for unspecified reasons
CPT/HCPCS: 93005; 99284

== ENCOUNTER 2017-08-12 16:00 | Emergency (ER) | payer MEDICARE, OTHER ==
--- NOTE | 2017-08-12 16:55 | CT ---
EXAMINATION TYPE: CT brain wo con DATE OF EXAM: 08/12/2017 COMPARISON: NONE HISTORY: Syncope. CT DLP: 902.8 mGycm Automated exposure control for dose reduction was used. FINDINGS: There is cerebral cortical atrophy. There is patchy hypodensity in the periventricular white matter. There is no mass effect nor midline shift. There is no sign of intracranial hemorrhage. The calvarium appears intact. There is atherosclerotic vascular calcification. IMPRESSION: CEREBRAL ATROPHY AND CHRONIC SMALL VESSEL ISCHEMIA. NO ACUTE INTRACRANIAL ABNORMALITY.
--- NOTE | 2017-08-12 16:59 | XR ---
EXAMINATION TYPE: XR chest 2V DATE OF EXAM: 08/12/2017 COMPARISON: 06/28/2017 HISTORY: Chest pain TECHNIQUE: Frontal and lateral views of the chest are obtained. FINDINGS: There is some coarsening of interstitial pulmonary markings. There is slight blunting of l eft costophrenic angle and pleural thickening on the left lateral chest wall. Thoracic aorta is ather omatous. There are sternal wires. There is no heart failure. IMPRESSION: Pleural and pulmonary scarring in the left lower lobe is unchanged. No heart failure. Mi ld pulmonary fibrosis.
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
[2017-08-12 17:26] VITALS: BP 115/58; PULSE 85; RESP 18; TEMP 98
== END 2017-08-12 17:30 | disposition home or self-care (01) ==
LOC: EC 16:00
DX: R53.1 Weakness (principal); Z95.1 Presence of aortocoronary bypass graft; R07.9 Chest pain, unspecified; R51 Headache; M54.2 Cervicalgia; I25.10 Atherosclerotic heart disease of native coronary artery without angina pectoris; I50.9 Heart failure, unspecified; E78.5 Hyperlipidemia, unspecified; E11.40 Type 2 diabetes mellitus with diabetic neuropathy, unspecified; I48.0 Paroxysmal atrial fibrillation; Z95.818 Presence of other cardiac implants and grafts; Z87.891 Personal history of nicotine dependence; Z79.4 Long term (current) use of insulin; Z79.899 Other long term (current) drug therapy; Z88.2 Allergy status to sulfonamides
CPT/HCPCS: 70450; 71046; 93005; 99285

== ENCOUNTER 2017-09-06 10:11 | Inpatient (IN) | payer MEDICARE, OTHER ==
[2017-09-06] MEDS ORDERED: cefTRIAXone IN SWFI 2,000 MG/20 ML SYRINGE IVP STA (10:41)
[2017-09-06 10:44] LABS: Basophils # (A) 0.1 k/uL (0-0.2); Basophils % (A) 0 %; Eosinophils # (A) 0.3 k/uL (0-0.7); Eosinophils % (A) 2 %; HCT 38.1 % (39.0-53.0); HGB 12.7 gm/dL (13.0-17.5); Lymphocytes # (A) 0.5 k/uL (1.0-4.8); Lymphocytes % (A) 3 %; MCH 31.4 pg (25.0-35.0); MCHC 33.4 g/dL (31.0-37.0); MCV 94.1 fL (80.0-100.0); Mean Platelet Volume 9.3; Monocytes # (A) 1.1 k/uL (0-1.0); Monocytes % (A) 7 %; Neutrophils # (A) 13.4 k/uL (1.3-7.7); Neutrophils % (A) 86 %; Platelet Count 298 k/uL (150-450); RBC 4.05 m/uL (4.30-5.90); RDW 13.1 % (11.5-15.5); WBC 15.5 k/uL (3.8-10.6)
[2017-09-06 10:59] LABS: Albumin 2.9 g/dL (3.5-5.0); Calcium 8.6 mg/dL (8.4-10.2); Potassium 4.7 mmol/L (3.5-5.1); Total Bilirubin 0.6 mg/dL (0.2-1.3); Total Protein 5.5 g/dL (6.3-8.2)
--- NOTE | 2017-09-06 11:15 | XR ---
EXAMINATION TYPE: XR chest 2V DATE OF EXAM: 09/06/2017 COMPARISON: Prior chest x-ray 08/12/2017 HISTORY: Difficulty breathing TECHNIQUE: Frontal and lateral views of the chest are obtained. FINDINGS: Patient is post median sternotomy and rotated. Blunting of the left costophrenic angle is thought likely due to chronic pleural reaction. There is no evident pneumothorax. Interstitium is inc reased. Central vascularity is prominent. Patchy bilateral densities are present. IMPRESSION: Correlate for congestive heart failure. Follow-up is recommended.
[2017-09-06 11:21] LABS: INR 1.1 (<1.2); Partial Thromboplastin Time 26.8 sec (22.0-30.0); Prothrombin Time 10.8 sec (9.0-12.0)
[2017-09-06] MEDS ORDERED: FUROSEMIDE 10 MG/ML 4 ML VIAL IV STA (12:59)
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
[2017-09-06] MEDS ORDERED: NITROGLYCERIN SL TABS 0.4 MG TAB SUBLINGUAL PRN ×2 (13:18→13:26)
[2017-09-06] MEDS ORDERED: DIAZEPAM 5 MG TAB PO PRN (13:26)
[2017-09-06] MEDS ORDERED: FLUTICASONE 50MCG/SPRAY NASAL 16GM EA NOSTRIL PRN (13:26)
[2017-09-06 13:29] LABS: Creatine Kinase MB 0.5 ng/mL (0.0-2.4); Troponin I 0.034 ng/mL (0.000-0.034)
[2017-09-06] MEDS: HYDROcodone/APAP 5-325MG 1 EACH TAB PO PRN ×2 (15:40→23:15)
[2017-09-06 16:28] LABS: Glucose,Whole Blood 155 mg/dL (75-99)
[2017-09-06] MEDS: INSULIN ASPART 100 UNIT/ML 1 ML 10 ML VIAL SQ SCH ×2 (16:53→21:19)
[2017-09-06] MEDS: ONDANSETRON 4 MG/2 ML VIAL IVP PRN (16:53)
[2017-09-06 17:22] LABS: Creatine Kinase MB 0.6 ng/mL (0.0-2.4); Troponin I 0.031 ng/mL (0.000-0.034)
[2017-09-06] MEDS ORDERED: NON-FORMULARY DRUG (Ezetimibe/Simvastatin [Vytorin 10-20 Mg Tablet] 1 TAB) PO SCH (21:00)
[2017-09-06 21:02] LABS: Glucose,Whole Blood 201 mg/dL (75-99)
[2017-09-06] MEDS: EZETIMIBE 10 MG TAB PO SCH (21:19)
[2017-09-06] MEDS: METOPROLOL TARTRATE 25 MG TAB PO SCH (21:19)
[2017-09-06] MEDS: LORATADINE 10 MG TAB PO SCH (21:19)
[2017-09-06] MEDS: ATORVASTATIN 10 MG TAB PO SCH ×2 (21:19→21:24)
[2017-09-06 22:12] LABS: Cholesterol 107 mg/dL (<200); HDL Cholesterol 24 mg/dL (40-60); LDL Cholesterol,Calculated 66 mg/dL (0-99); Triglycerides 83 mg/dL (<150)
[2017-09-06 23:31] LABS: Creatine Kinase MB 0.7 ng/mL (0.0-2.4); Troponin I 0.026 ng/mL (0.000-0.034)
[2017-09-07 02:44] LABS: Hemoglobin A1C 6.6 % (4.0-6.0)
[2017-09-07 06:04] LABS: Glucose,Whole Blood 164 mg/dL (75-99)
[2017-09-07] MEDS: INSULIN ASPART 100 UNIT/ML 1 ML 10 ML VIAL SQ SCH ×6 (06:42→20:46)
[2017-09-07] MEDS ORDERED: ASPIRIN 325 MG TAB PO SCH (09:00)
[2017-09-07] MEDS ORDERED: FUROSEMIDE 20 MG TAB PO SCH (09:00)
[2017-09-07] MEDS: METOPROLOL TARTRATE 25 MG TAB PO SCH ×2 (09:12→20:46)
[2017-09-07] MEDS: CLOPIDOGREL 75 MG TAB PO SCH (09:12)
[2017-09-07] MEDS: ASPIRIN 81 MG PO SCH (09:12)
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
[2017-09-07] MEDS: HYDROcodone/APAP 5-325MG 1 EACH TAB PO PRN ×2 (11:30→23:46)
[2017-09-07 11:55] LABS: Glucose,Whole Blood 169 mg/dL (75-99)
[2017-09-07] MEDS ORDERED: ACETAMINOPHEN TAB 325 MG TAB PO PRN (12:04)
[2017-09-07] MEDS ORDERED: LORazepam 0.5 MG TAB PO PRN (12:04)
[2017-09-07] MEDS ORDERED: MELATONIN 3 MG TABLET PO PRN (12:04)
[2017-09-07] MEDS ORDERED: MAGNESIUM HYDROXIDE 2,400 MG/10 ML CUP PO PRN (12:04)
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
[2017-09-07] MEDS: guaiFENesin 600 MG TABLET.ER PO SCH ×2 (14:40→20:46)
[2017-09-07] MEDS: INSULIN DETEMIR 100 UNIT/ML 10 ML VIAL SQ SCH (14:42)
[2017-09-07] MEDS: IPRATROPIUM-ALBUTEROL 3 ML NEB INHALATION SCH ×4 (15:00→23:53)
[2017-09-07] MEDS: BUDESONIDE 1 MG/2 ML NEBU INHALATION SCH ×2 (15:01→20:04)
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
[2017-09-07 17:05] LABS: Glucose,Whole Blood 246 mg/dL (75-99)
--- NOTE | 2017-09-07 17:53 | ECHOF ---
Referral Reason:CHF MEASUREMENTS -------- HEIGHT: 152.4 cm WEIGHT: 88.5 kg BP: 116/58 IVSd: 1.5 cm (0.6 - 1.1) LVIDd: 4.3 cm (3.9 - 5.3) LVPWd: 1.2 cm (0.6 - 1.1) IVSs: 1.8 cm LVIDs: 3.3 cm LVPWs: 1.2 cm LA Diam: 3.9 cm (2.7 - 3.8) RVIDd: 3.5 cm (< 3.3) LAESV Index (A-L): 41.40 ml/m Ao Diam: 3.4 cm (2.0 - 3.7) LA Diam: 4.5 cm (2.7 - 3.8) AV Cusp: 1.7 cm (1.5 - 2.6) EPSS: 0.4 cm MV E Niels: 0.46 m/s MV DecT: 252 ms MV A Niels: 0.95 m/s MV E/A Ratio: 0.49 RAP: 5.00 mmHg RVSP: 18.23 mmHg MV EF SLOPE: 68.96 mm/s (70 - 150) MV EXCURSION: 17.57 mm (> 18.000) FINDINGS -------- Sinus rhythm. This was a technically adequate study. The left ventricular size is normal. There is moderate concentric left ventricular hypertrophy. O verall left ventricular systolic function is low-normal with, an EF between 50 - 55 %. The right ventricle is mild to moderately enlarged. The left atrium is moderately dilated. LA is severely dilated >40 ml/m2 The right atrial size is normal. There is mild aortic valve sclerosis. There is no evidence of aortic regurgitation. Mild mitral annular calcification present. Mild mitral regurgitation is present. Mild tricuspid regurgitation present. There is no evidence of pulmonary hypertension. The right v entricular systolic pressure, as measured by Doppler, is 18.23mmHg. There is no pulmonic regurgitation present. The aortic root size is normal. Echo free space represents a pericardial fat pad. CONCLUSIONS -------- 1. The left ventricular size is normal. 2. There is moderate concentric left ventricular hypertrophy. 3. Overall left ventricular systolic function is low-normal with, an EF between 50 - 55 %. 4. The right ventricle is mild to moderately enlarged. 5. The left atrium is moderately dilated. 6. LA is severely dilated >40 ml/m2 7. The right atrial size is normal. 8. There is mild aortic valve sclerosis. 9. Mild mitral annular calcification present. 10. Mild mitral regurgitation is present. 11. Mild tricuspid regurgitation present. 12. There is no evidence of pulmonary hypertension. 13. The right ventricular systolic pressure, as measured by Doppler, is 18.23mmHg. 14. There is no pulmonic regurgitation present. 15. The aortic root size is normal. 16. Echo free space represents a pericardial fat pad. TRAVEL SERVICES PROFESSIONAL: Arline Witt RDCS
[2017-09-07] MEDS: ATORVASTATIN 10 MG TAB PO SCH (20:36)
[2017-09-07 20:44] LABS: Glucose,Whole Blood 173 mg/dL (75-99)
[2017-09-07] MEDS: FUROSEMIDE 10 MG/ML 4 ML VIAL IV SCH (20:45)
[2017-09-07] MEDS: LORATADINE 10 MG TAB PO SCH (20:46)
[2017-09-07] MEDS: EZETIMIBE 10 MG TAB PO SCH (20:46)
[2017-09-08] MEDS: IPRATROPIUM-ALBUTEROL 3 ML NEB INHALATION SCH ×6 (03:57→23:53)
[2017-09-08 05:51] LABS: Glucose,Whole Blood 144 mg/dL (75-99)
[2017-09-08] MEDS: HYDROcodone/APAP 5-325MG 1 EACH TAB PO PRN ×2 (07:11→21:58)
[2017-09-08] MEDS: INSULIN ASPART 100 UNIT/ML 1 ML 10 ML VIAL SQ SCH ×7 (07:11→21:21)
[2017-09-08] MEDS: FUROSEMIDE 10 MG/ML 4 ML VIAL IV SCH ×2 (07:42→21:14)
[2017-09-08] MEDS: METOPROLOL TARTRATE 25 MG TAB PO SCH ×2 (07:43→21:49)
[2017-09-08] MEDS: guaiFENesin 600 MG TABLET.ER PO SCH ×2 (07:43→21:13)
[2017-09-08] MEDS: ASPIRIN 81 MG PO SCH (07:43)
[2017-09-08] MEDS: CLOPIDOGREL 75 MG TAB PO SCH (07:43)
[2017-09-08] MEDS: BUDESONIDE 1 MG/2 ML NEBU INHALATION SCH ×2 (08:11→19:41)
--- NOTE | 2017-09-08 08:20 | P.PN ---
Subjective Progress Note Date: 09/08/17 Principal diagnosis: CHF secondary to diastole dysfunction This is a pleasant 87-year-old gentleman with a past medical history significant for coronary artery disease and status post coronary artery bypass grafting 4 in 2004, diabetes, hypertension, dyslipidemia, and status post left below the knee amputation, was also noncompliant, presented to the hospital complaining of shortness of breath. He was in his usual state of health until about 3 days ago when he started experiencing progressive dyspnea associated with cough productive of sputum. No fever or chills. No chest pain or chest discomfort, dizziness or lightheadedness, heart racing or fluttering, or syncope. The chest x-ray showed findings consistent with CHF. The BNP was checked and came in to be around 2000. 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 The last echocardiogram was performed in 2015 and revealed normal LV function. The cardiac enzymes were checked and came in to be unremarkable. Also physical examination the patient does have bilateral expiratory wheezing there is no evidence of lower extremities edema. I'll follow-up with the patient today, he still complaining of shortness of breath. On physical examination he does have bilateral rhonchi and diminished breathing sounds no bilateral lower extremities edema. We don't have kidney function tests from today. He is on Lasix 40 mg IV twice a day which I will continue. I will obtain a BMP. We'll continue following up with him. The echocardiogram was performed yesterday showed normal LV function without any significant valvular abnormalities. Objective - Vital Signs Vital signs: Vital Signs Temp 98.5 F 09/08/17 07:40 Pulse 76 09/08/17 08:11 Resp 18 09/08/17 07:40 BP 93/53 09/08/17 07:40 Pulse Ox 94 L 09/08/17 07:40 Intake & Output 09/07/17 09/08/17 09/08/17 18:59 06:59 18:59 Intake Total 870 100 476 Output Total 450 755 Balance 420 -655 476 Weight 88.5 kg 89 kg Intake: IV 120 100 Invasive Line 1 20 cefTAZidime 2 gm In 100 100 Sodium Chloride 0.9% 100 ml @ 100 mls/hr IVPB Q12HR [facility] Rx#:[id number] Oral 750 476 Output: Urine 450 755 Other: Voiding Method Urinal Urinal Urinal Diaper Diaper Diaper # Voids 1 1 - Constitutional General appearance: Present: no acute distress - Respiratory Respiratory: bilateral: diminished - Cardiovascular Heart sounds: normal: S1, S2 - Labs CBC & Chem 7: 09/06/17 10:25 09/06/17 10:25 Labs: Abnormal Lab Results - Last 24 Hours (Table) 09/06/17 09/07/17 09/07/17 Range/Units 10:25 11:43 16:41 POC Glucose (mg/dL) 169 H 246 H (75-99) mg/dL Hemoglobin A1c 6.6 H (4.0-6.0) % 09/07/17 09/08/17 Range/Units 20:42 05:50 POC Glucose (mg/dL) 173 H 144 H (75-99) mg/dL Hemoglobin A1c (4.0-6.0) % Microbiology - Last 24 Hours (Table) 09/07/17 17:18 Sputum Culture - Preliminary Sputum 09/06/17 10:25 Blood Culture - Preliminary Blood No Growth after 24 hours
[2017-09-08 12:03] LABS: Glucose,Whole Blood 217 mg/dL (75-99)
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
[2017-09-08 17:03] LABS: Glucose,Whole Blood 208 mg/dL (75-99)
[2017-09-08 20:47] LABS: Glucose,Whole Blood 279 mg/dL (75-99)
[2017-09-08] MEDS: ATORVASTATIN 10 MG TAB PO SCH (21:13)
[2017-09-08] MEDS: LORATADINE 10 MG TAB PO SCH (21:13)
[2017-09-08] MEDS: EZETIMIBE 10 MG TAB PO SCH (21:13)
[2017-09-08] MEDS: INSULIN DETEMIR 100 UNIT/ML 10 ML VIAL SQ SCH (21:21)
--- NOTE | 2017-09-08 21:22 | PN ---
PROGRESS NOTE DATE OF SERVICE: 09/08/2017 PRESENTING COMPLAINT: Short of breath, cough. INTERVAL HISTORY: Patient presented with CHF exacerbation, bilateral pneumonia, congested. Started bringing up some sputum. Did eat a little bit. The patient has family visiting. Short of breath, cough. REVIEW OF SYSTEMS: Done for constitutional, cardiovascular, GI, pulmonary; relevant findings as above. CURRENT MEDICATIONS: Reviewed that include: 1. DuoNeb. 2. IV ceftazidime. 3. IV Lasix. EXAMINATION: Temperature 98.5, pulse 82, respirations 18, blood pressure 93/53, pulse ox 94% on 2L. GENERAL APPEARANCE: Lying in bed, tired appearing. A bit more awake. EYES: Pupils equal. Conjunctivae normal. HEENT: External appearance of nose and ears normal. Oral cavity normal. NECK: JVD unable to assess. Mass not palpable. RESPIRATORY: Effort increased. LUNGS: Decreased breath sounds. Prolonged expiration. Decreased coarse expiratory crackles. CARDIOVASCULAR: First and second sounds normal. No edema. ABDOMEN: Soft, nontender. Liver and spleen not palpable. PSYCHIATRY: Alert and oriented x3. Mood and affect a bit anxious-appearing. INVESTIGATIONS: Accu-Cheks are noted. ASSESSMENT: 1. Bilateral pneumonia, suspect gram-negative organism. The patient has scattered infiltrates on chest x-ray. On antibiotics, slow to respond. 2. Acute on chronic congestive heart failure exacerbation from diastolic dysfunction, ejection fraction 50%-55%. 3. Paroxysmal atrial fibrillation currently in sinus rhythm. 4. Coronary artery disease, history of coronary bypass. 5. Diabetes mellitus type 2, chronically on insulin. 6. Essential hypertension. 7. Primary osteoarthritis. 8. Left below-knee amputation. 9. Acute chronic obstructive pulmonary disease exacerbation in an ex-smoker. 10.Chronic medical debility. Patient is wheelchair bound. 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 12.CODE STATUS: DO NOT RESUSCITATE. PLAN: Patient will be kept on IV ceftazidime. I did speak to the nurse; will humidify the oxygen, and also spoke to the respiratory therapist, will give a flutter valve. The patient will be maintained on the current medications. Sputum has been sent off. Nothing is growing for right now. Care was discussed the patient and family at the bedside, slow to respond. MMODL / IJN: [id number] /
[2017-09-09] MEDS: IPRATROPIUM-ALBUTEROL 3 ML NEB INHALATION SCH ×5 (04:06→20:52)
[2017-09-09 06:19] LABS: Glucose,Whole Blood 146 mg/dL (75-99)
[2017-09-09 06:58] LABS: Basophils # (A) 0.1 k/uL (0-0.2); Basophils % (A) 1 %; Eosinophils # (A) 0.9 k/uL (0-0.7); Eosinophils % (A) 8 %; HCT 36.1 % (39.0-53.0); HGB 11.4 gm/dL (13.0-17.5); Lymphocytes # (A) 0.8 k/uL (1.0-4.8); Lymphocytes % (A) 7 %; MCH 30.1 pg (25.0-35.0); MCHC 31.7 g/dL (31.0-37.0); MCV 95.1 fL (80.0-100.0); Mean Platelet Volume 8.4; Monocytes # (A) 0.7 k/uL (0-1.0); Monocytes % (A) 6 %; Neutrophils # (A) 8.5 k/uL (1.3-7.7); Neutrophils % (A) 76 %; Platelet Count 276 k/uL (150-450); RDW 13.3 % (11.5-15.5); WBC 11.2 k/uL (3.8-10.6)
[2017-09-09] MEDS: INSULIN ASPART 100 UNIT/ML 1 ML 10 ML VIAL SQ SCH ×7 (07:04→21:19)
[2017-09-09 07:17] LABS: Calcium 8.1 mg/dL (8.4-10.2); Potassium 4.9 mmol/L (3.5-5.1)
[2017-09-09] MEDS: BUDESONIDE 1 MG/2 ML NEBU INHALATION SCH ×2 (08:07→20:52)
[2017-09-09] MEDS: guaiFENesin 600 MG TABLET.ER PO SCH ×2 (08:20→20:53)
[2017-09-09] MEDS: HYDROcodone/APAP 5-325MG 1 EACH TAB PO PRN ×2 (08:20→17:27)
[2017-09-09] MEDS: CLOPIDOGREL 75 MG TAB PO SCH (08:20)
[2017-09-09] MEDS: ASPIRIN 81 MG PO SCH (08:20)
--- NOTE | 2017-09-09 09:46 | P.PN ---
Subjective Progress Note Date: 09/09/17 Principal diagnosis: CHF secondary to diastole dysfunction This is a pleasant 87-year-old gentleman with a past medical history significant for coronary artery disease and status post coronary artery bypass grafting 4 in 2004, diabetes, hypertension, dyslipidemia, and status post left below the knee amputation, was also noncompliant, presented to the hospital complaining of shortness of breath. He was in his usual state of health until about 3 days ago when he started experiencing progressive dyspnea associated with cough productive of sputum. No fever or chills. No chest pain or chest discomfort, dizziness or lightheadedness, heart racing or fluttering, or syncope. The chest x-ray showed findings consistent with CHF. The BNP was checked and came in to be around 2000. 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 The last echocardiogram was performed in 2015 and revealed normal LV function. The cardiac enzymes were checked and came in to be unremarkable. Also physical examination the patient does have bilateral expiratory wheezing there is no evidence of lower extremities edema. I'll follow-up with the patient today, overall he is feeling better. He still have some shortness of breath. He still have bilateral crackles. The blood pressure has been on the low side. The creatinine is worse. I'm going to decrease the dose of metoprolol 12.5 mg by mouth twice a day, change the Lasix to by mouth, continue monitor the kidney function and electrolytes for additional 24 hours, and he is in process of having chest x-ray. Objective - Vital Signs Vital signs: Vital Signs Temp 97.7 F 09/09/17 08:00 Pulse 88 09/09/17 08:18 Resp 18 09/09/17 08:00 BP 92/54 09/09/17 08:00 Pulse Ox 93 L 09/09/17 08:00 Intake & Output 09/08/17 09/09/17 09/09/17 18:59 06:59 18:59 Intake Total 1726 Output Total 800 300 200 Balance 926 -300 -200 Weight 101 kg Intake: IV 110 Invasive Line 1 10 cefTAZidime 2 gm In 100 Sodium Chloride 0.9% 100 ml @ 100 mls/hr IVPB Q12HR [facility] Rx#:[id number] Oral 1616 Output: Urine 800 300 200 Other: Voiding Method Urinal Urinal Urinal Diaper Diaper Diaper # Voids 1 1 - Constitutional General appearance: Present: no acute distress - Respiratory Respiratory: bilateral: rales - Cardiovascular Heart sounds: normal: S1, S2 - Labs CBC & Chem 7: 09/09/17 06:28 09/09/17 06:28 Labs: Abnormal Lab Results - Last 24 Hours (Table) 09/08/17 09/08/17 09/08/17 Range/Units 11:35 16:16 20:46 WBC (3.8-10.6) k/uL RBC (4.30-5.90) m/uL Hgb (13.0-17.5) gm/dL Hct (39.0-53.0) % Neutrophils # (1.3-7.7) k/uL Lymphocytes # (1.0-4.8) k/uL Eosinophils # (0-0.7) k/uL Sodium (137-145) mmol/L Chloride (98-107) mmol/L BUN (9-20) mg/dL Creatinine (0.66-1.25) mg/dL Glucose (74-99) mg/dL POC Glucose (mg/dL) 217 H 208 H 279 H (75-99) mg/dL Calcium (8.4-10.2) mg/dL 09/09/17 09/09/17 09/09/17 Range/Units 06:17 06:28 06:28 WBC 11.2 H (3.8-10.6) k/uL RBC 3.80 L (4.30-5.90) m/uL Hgb 11.4 L (13.0-17.5) gm/dL Hct 36.1 L (39.0-53.0) % Neutrophils # 8.5 H (1.3-7.7) k/uL Lymphocytes # 0.8 L (1.0-4.8) k/uL Eosinophils # 0.9 H (0-0.7) k/uL Sodium 136 L (137-145) mmol/L Chloride 96 L (98-107) mmol/L BUN 61 H (9-20) mg/dL Creatinine 2.13 H (0.66-1.25) mg/dL Glucose 150 H (74-99) mg/dL POC Glucose (mg/dL) 146 H (75-99) mg/dL Calcium 8.1 L (8.4-10.2) mg/dL Microbiology - Last 24 Hours (Table) 09/06/17 10:25 Blood Culture - Preliminary Blood No Growth after 48 hours 09/07/17 17:18 Gram Stain - Preliminary Sputum Sputum Culture - Preliminary Assessment and Plan Assessment: Assessment #1 congestive heart failure exacerbation and known if it's due to systolic or diastolic function at this point. Probably secondary to diastolic dysfunction #2 cannot exclude #3 known CAD and status post CABG #4 no noncompliance with medications Plan #1 DC IV Lasix and start the patient on by mouth Lasix #2 monitor his kidney function and electrolytes #3 decrease the dose of metoprolol in view of the margin a low blood pressure #4 follow-up with the patient. Thank you for allowing us participate in his care and we'll continue following up with the patient
[2017-09-09] MEDS: FUROSEMIDE 40 MG TAB PO SCH (10:32)
[2017-09-09] MEDS: METOPROLOL TARTRATE 12.5 MG TAB PO SCH ×2 (10:32→20:53)
--- NOTE | 2017-09-09 11:11 | XR ---
EXAMINATION TYPE: XR chest 2V DATE OF EXAM: 09/09/2017 HISTORY: follow up. REFERENCE: Previous study dated 09/06/2017. FINDINGS: There has been a previous midline sternotomy. The lungs are overinflated. The heart is not enlarged. There is left basilar airspace disease. This h as progressed slightly from the previous study. There is some right basilar atelectasis. There is marline nting of the left CP angle. I could not exclude a small effusion. IMPRESSION: 1. COPD. 2. BIBASILAR INFILTRATES. 3. LEFT-SIDED EFFUSION.
[2017-09-09 11:37] LABS: Glucose,Whole Blood 233 mg/dL (75-99)
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
[2017-09-09 16:40] LABS: Glucose,Whole Blood 194 mg/dL (75-99)
--- NOTE | 2017-09-09 20:08 | PN ---
PROGRESS NOTE DATE OF SERVICE: 09/09/2017 PRESENTING COMPLAINT: Short of breath. INTERVAL HISTORY: The patient presents with CHF exacerbation, bilateral pneumonia, has been on Lasix and antibiotics, doing much better. Sputum is now minimal. Appetite is greatly improved. Overall feels much better. Slight cough. REVIEW OF SYSTEMS: Done for constitutional, cardiovascular, GI, pulmonary; relevant findings as above. CURRENT MEDICATIONS: Reviewed that include: 1. IV ceftazidime and. 2. P.o. Lasix. EXAMINATION: Temperature 97.1, pulse 93, respirations 16, blood pressure 146/78, pulse ox 93% on 3L. GENERAL APPEARANCE: Lying in bed, more comfortable. EYES: Pupils equal. Conjunctivae normal. HEENT: External appearance of nose and ears normal. Oral cavity normal. NECK: JVD not raised. Mass not palpable. RESPIRATORY: Effort increased. LUNGS: Decreased breath sounds. Improved air entry. CARDIOVASCULAR: First and second sounds normal. No edema. ABDOMEN: Soft, nontender. Liver and spleen not palpable. PSYCHIATRY: Alert and oriented x3. Mood and affect normal. INVESTIGATIONS: White count 11.2, hemoglobin 9.4. Potassium 4.9, BUN 61, creatinine 2.13. ASSESSMENT: 1. Bilateral pneumonia, suspect gram-negative organism, clinical improvement. 2. Acute on chronic congestive heart failure exacerbation from diastolic dysfunction, ejection fraction 50-55%, euvolemic. 3. Acute renal failure from diuresis. The patient's creatinine has gone from 1.38 to 2.13. 4. Paroxysmal atrial fibrillation, currently in sinus rhythm. 5. Coronary artery disease with prior history of bypass. 6. Diabetes mellitus type 2, chronically on insulin. 7. Essential hypertension. 8. Primary osteoarthritis. 9. Left below-knee amputation. 10.Acute chronic obstructive pulmonary disease exacerbation in an ex-smoker, improving. 11.Chronic medical debility. Patient is wheelchair bound. 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 13.CODE STATUS: DO NOT RESUSCITATE. PLAN: Patient overall doing better, but in setting of renal failure will hold off the Lasix for right now. Will see how the renal function is tomorrow and then decide about discharge. Care was discussed with the patient. MMODL / IJN: [id number] /
[2017-09-09] MEDS: LORATADINE 10 MG TAB PO SCH (20:53)
[2017-09-09] MEDS: EZETIMIBE 10 MG TAB PO SCH (20:53)
[2017-09-09] MEDS: ATORVASTATIN 10 MG TAB PO SCH (20:59)
[2017-09-09] MEDS: INSULIN DETEMIR 100 UNIT/ML 10 ML VIAL SQ SCH (21:19)
[2017-09-09 21:25] LABS: Glucose,Whole Blood 242 mg/dL (75-99)
[2017-09-10] MEDS: HYDROcodone/APAP 5-325MG 1 EACH TAB PO PRN ×4 (00:02→19:15)
[2017-09-10] MEDS: IPRATROPIUM-ALBUTEROL 3 ML NEB INHALATION SCH ×6 (00:22→20:16)
[2017-09-10] MEDS: METOPROLOL TARTRATE 25 MG TAB PO SCH (02:11)
[2017-09-10] MEDS: FUROSEMIDE 10 MG/ML 4 ML VIAL IV SCH (02:11)
[2017-09-10 06:16] LABS: Glucose,Whole Blood 183 mg/dL (75-99)
[2017-09-10 06:49] LABS: Basophils # (A) 0.1 k/uL (0-0.2); Basophils % (A) 1 %; Eosinophils # (A) 0.9 k/uL (0-0.7); Eosinophils % (A) 8 %; HCT 36.2 % (39.0-53.0); HGB 11.5 gm/dL (13.0-17.5); Lymphocytes # (A) 1.1 k/uL (1.0-4.8); Lymphocytes % (A) 10 %; MCHC 31.6 g/dL (31.0-37.0); MCV 94.8 fL (80.0-100.0); Mean Platelet Volume 8.6; Monocytes # (A) 0.5 k/uL (0-1.0); Monocytes % (A) 5 %; Neutrophils # (A) 8.2 k/uL (1.3-7.7); Neutrophils % (A) 75 %; Platelet Count 303 k/uL (150-450); RBC 3.82 m/uL (4.30-5.90); RDW 13.1 % (11.5-15.5); WBC 10.9 k/uL (3.8-10.6)
[2017-09-10 07:03] LABS: Calcium 8.5 mg/dL (8.4-10.2)
[2017-09-10] MEDS: INSULIN ASPART 100 UNIT/ML 1 ML 10 ML VIAL SQ SCH ×7 (07:05→20:47)
[2017-09-10] MEDS: BUDESONIDE 1 MG/2 ML NEBU INHALATION SCH ×2 (07:57→20:16)
[2017-09-10] MEDS: ASPIRIN 81 MG PO SCH (09:29)
[2017-09-10] MEDS: FUROSEMIDE 40 MG TAB PO SCH (09:29)
[2017-09-10] MEDS: guaiFENesin 600 MG TABLET.ER PO SCH ×2 (09:29→20:36)
[2017-09-10] MEDS: METOPROLOL TARTRATE 12.5 MG TAB PO SCH ×2 (09:29→20:36)
[2017-09-10] MEDS: CLOPIDOGREL 75 MG TAB PO SCH (09:29)
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
--- NOTE | 2017-09-10 11:00 | P.PN ---
Subjective Progress Note Date: 09/10/17 Principal diagnosis: CHF secondary to diastole dysfunction This is a pleasant 87-year-old gentleman with a past medical history significant for coronary artery disease and status post coronary artery bypass grafting 4 in 2004, diabetes, hypertension, dyslipidemia, and status post left below the knee amputation, was also noncompliant, presented to the hospital complaining of shortness of breath. He was in his usual state of health until about 3 days ago when he started experiencing progressive dyspnea associated with cough productive of sputum. No fever or chills. No chest pain or chest discomfort, dizziness or lightheadedness, heart racing or fluttering, or syncope. The chest x-ray showed findings consistent with CHF. The BNP was checked and came in to be around 2000. 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 The last echocardiogram was performed in 2015 and revealed normal LV function. The cardiac enzymes were checked and came in to be unremarkable. Also physical examination the patient does have bilateral expiratory wheezing there is no evidence of lower extremities edema. I'll follow-up with the patient today, overall he is feeling better. He still have some shortness of breath. He still have bilateral crackles. The blood pressure has been on the low side. The creatinine is worse. The chest x-ray from yesterday showed COPD along with left pleural effusion. Currently he is on antibiotic for the pneumonia and also he is on Lasix by mouth. The creatinine continues to be stable. Objective - Vital Signs Vital signs: Vital Signs Temp 97.8 F 09/10/17 08:00 Pulse 88 09/10/17 08:11 Resp 18 09/10/17 08:00 BP 116/63 09/10/17 08:00 Pulse Ox 97 09/10/17 08:00 Intake & Output 09/09/17 09/10/17 09/10/17 18:59 06:59 18:59 Intake Total 240 600 330 Output Total 1100 300 100 Balance -860 300 230 Weight 93 kg Intake: IV 120 Invasive Line 1 20 cefTAZidime 2 gm In 100 Sodium Chloride 0.9% 100 ml @ 100 mls/hr IVPB Q12HR [facility] Rx#:[id number] Oral 240 480 330 Output: Urine 1100 300 100 Other: Voiding Method Urinal Urinal Urinal # Voids 1 1 - Constitutional General appearance: Present: no acute distress - Respiratory Respiratory: bilateral: rhonchi - Cardiovascular Heart sounds: normal: S1, S2 - Labs CBC & Chem 7: 09/10/17 06:26 09/10/17 06:26 Labs: Abnormal Lab Results - Last 24 Hours (Table) 09/09/17 09/09/17 09/09/17 Range/Units 11:35 16:38 21:15 WBC (3.8-10.6) k/uL RBC (4.30-5.90) m/uL Hgb (13.0-17.5) gm/dL Hct (39.0-53.0) % Neutrophils # (1.3-7.7) k/uL Eosinophils # (0-0.7) k/uL Sodium (137-145) mmol/L BUN (9-20) mg/dL Creatinine (0.66-1.25) mg/dL Glucose (74-99) mg/dL POC Glucose (mg/dL) 233 H 194 H 242 H (75-99) mg/dL 09/10/17 09/10/17 09/10/17 Range/Units 06:12 06:26 06:26 WBC 10.9 H (3.8-10.6) k/uL RBC 3.82 L (4.30-5.90) m/uL Hgb 11.5 L (13.0-17.5) gm/dL Hct 36.2 L (39.0-53.0) % Neutrophils # 8.2 H (1.3-7.7) k/uL Eosinophils # 0.9 H (0-0.7) k/uL Sodium 136 L (137-145) mmol/L BUN 63 H (9-20) mg/dL Creatinine 2.16 H (0.66-1.25) mg/dL Glucose 160 H (74-99) mg/dL POC Glucose (mg/dL) 183 H (75-99) mg/dL Microbiology - Last 24 Hours (Table) 09/07/17 17:18 Gram Stain - Final Sputum Sputum Culture - Final Katharina albicans 09/06/17 10:25 Blood Culture - Preliminary Blood No Growth after 72 hours Assessment and Plan Assessment: Assessment #1 congestive heart failure exacerbation and known if it's due to systolic or diastolic function at this point. Probably secondary to diastolic dysfunction #2 cannot exclude #3 known CAD and status post CABG #4 no noncompliance with medications Plan #1 continue the current dose of Lasix by mouth. Continue the antibiotic #2 monitor his kidney function and electrolytes #3 follow-up with the patient Thank you for allowing us participate in his care and we'll continue following up with the patient
[2017-09-10 12:04] LABS: Glucose,Whole Blood 189 mg/dL (75-99)
[2017-09-10] MEDS ORDERED: POTASSIUM CHLORIDE ER 20 MEQ TAB.ER PO STA (16:02)
[2017-09-10] MEDS: LACTULOSE 20 GM/30 ML CUP PO PRN (17:03)
[2017-09-10 17:12] LABS: Glucose,Whole Blood 161 mg/dL (75-99)
[2017-09-10] MEDS: ATORVASTATIN 10 MG TAB PO SCH (20:13)
[2017-09-10] MEDS ORDERED: IPRATROPIUM-ALBUTEROL 3 ML NEB INHALATION PRN (20:33)
[2017-09-10] MEDS: EZETIMIBE 10 MG TAB PO SCH (20:36)
[2017-09-10] MEDS: LORATADINE 10 MG TAB PO SCH (20:36)
[2017-09-10] MEDS: INSULIN DETEMIR 100 UNIT/ML 10 ML VIAL SQ SCH (20:47)
[2017-09-10 21:01] LABS: Glucose,Whole Blood 163 mg/dL (75-99)
[2017-09-11 06:05] LABS: Glucose,Whole Blood 151 mg/dL (75-99)
[2017-09-11] MEDS: INSULIN ASPART 100 UNIT/ML 1 ML 10 ML VIAL SQ SCH ×7 (07:04→20:44)
[2017-09-11] MEDS: HYDROcodone/APAP 5-325MG 1 EACH TAB PO PRN ×2 (07:07→19:42)
[2017-09-11] MEDS: BUDESONIDE 1 MG/2 ML NEBU INHALATION SCH ×2 (08:04→19:23)
[2017-09-11] MEDS: IPRATROPIUM-ALBUTEROL 3 ML NEB INHALATION SCH ×4 (08:04→19:23)
--- NOTE | 2017-09-11 08:59 | P.PN ---
Subjective Progress Note Date: 09/11/17 Principal diagnosis: CHF secondary to diastole dysfunction This is a pleasant 87-year-old gentleman with a past medical history significant for coronary artery disease and status post coronary artery bypass grafting 4 in 2004, diabetes, hypertension, dyslipidemia, and status post left below the knee amputation, was also noncompliant, presented to the hospital complaining of shortness of breath. He was in his usual state of health until about 3 days ago when he started experiencing progressive dyspnea associated with cough productive of sputum. No fever or chills. No chest pain or chest discomfort, dizziness or lightheadedness, heart racing or fluttering, or syncope. The chest x-ray showed findings consistent with CHF. The BNP was checked and came in to be around 2000. 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 The last echocardiogram was performed in 2015 and revealed normal LV function. The cardiac enzymes were checked and came in to be unremarkable. Also physical examination the patient does have bilateral expiratory wheezing there is no evidence of lower extremities edema. On follow-up with the patient today, he is not feeling well. He stated that he is more short of breath. No anginal chest pain or chest discomfort. On physical examination he does have diminished breathing sounds over the left lung base. I am going to obtain a chest x-ray to assess for worsening left pleural effusion. Beside that he is on Lasix by mouth and he is on IV antibiotic. Objective - Vital Signs Vital signs: Vital Signs Temp 97.6 F 09/11/17 04:00 Pulse 84 09/11/17 08:14 Resp 18 09/11/17 04:00 BP 130/64 09/11/17 04:00 Pulse Ox 95 09/11/17 04:00 Intake & Output 09/10/17 09/11/17 09/11/17 18:59 06:59 18:59 Intake Total 570 100 Output Total 650 700 Balance -80 -600 Weight 87.5 kg Intake: IV 100 cefTAZidime 2 gm In 100 Sodium Chloride 0.9% 100 ml @ 100 mls/hr IVPB Q12HR [facility] Rx#:[id number] Oral 570 Output: Urine 650 700 Other: Voiding Method Urinal Urinal # Voids 1 1 # Bowel Movements 1 - Constitutional General appearance: Present: no acute distress - Respiratory Respiratory: right: CTA - Cardiovascular Rhythm: regular Heart sounds: normal: S1, S2 - Labs CBC & Chem 7: 09/10/17 06:26 09/10/17 06:26 Labs: Abnormal Lab Results - Last 24 Hours (Table) 09/10/17 09/10/17 09/10/17 Range/Units 11:54 17:02 20:43 POC Glucose (mg/dL) 189 H 161 H 163 H (75-99) mg/dL 09/11/17 Range/Units 06:03 POC Glucose (mg/dL) 151 H (75-99) mg/dL Microbiology - Last 24 Hours (Table) 09/06/17 10:25 Blood Culture - Preliminary Blood No Growth after 96 hours 09/07/17 17:18 Gram Stain - Final Sputum Sputum Culture - Final Katharina albicans Assessment and Plan Assessment: Assessment #1 congestive heart failure exacerbation and known if it's due to systolic or diastolic function at this point. Probably secondary to diastolic dysfunction #2 cannot exclude #3 known CAD and status post CABG #4 no noncompliance with medications Plan #1 continue the current dose of Lasix by mouth. Continue the antibiotic #2 monitor his kidney function and electrolytes #3 obtain a chest x-ray and BNP #4 the echocardiogram showed normal LV function. Thank you for allowing us participate in his care and we'll continue following up with the patient
[2017-09-11] MEDS: FUROSEMIDE 40 MG TAB PO SCH ×2 (09:58→16:28)
[2017-09-11] MEDS: METOPROLOL TARTRATE 12.5 MG TAB PO SCH ×2 (09:58→20:06)
[2017-09-11] MEDS: ASPIRIN 81 MG PO SCH (09:58)
[2017-09-11] MEDS: guaiFENesin 600 MG TABLET.ER PO SCH ×2 (09:58→20:05)
[2017-09-11] MEDS: CLOPIDOGREL 75 MG TAB PO SCH (09:58)
[2017-09-11] MEDS: ONDANSETRON 4 MG/2 ML VIAL IVP PRN (10:01)
--- NOTE | 2017-09-11 10:58 | XR ---
EXAMINATION TYPE: XR chest 2V DATE OF EXAM: 09/11/2017 COMPARISON: Prior chest 09/09/2017 and chest x-ray 08/12/2017 HISTORY: Follow-up pneumonia TECHNIQUE: Frontal and lateral views of the chest are obtained. FINDINGS: Findings are similar to prior exam. Patient is post median sternotomy and there are overly ing cardiac leads. Heart size is unchanged. Central vascularity and interstitium are increased. Patch y basilar density with blunting of the left costophrenic angle again noted. Prominent lung lines comp atible with patient's known emphysema. No evident pneumothorax. IMPRESSION: Correlate to exclude pulmonary venous hypertension and interstitial edema, there is like ly underlying interstitial lung disease. There may be left lower lobe atelectasis and associated effu ann-marie although findings appear to be chronic and may be due to chronic pleural reaction, correlate to exclude pneumonia, pulmonary artery hypertension. Emphysema.
[2017-09-11 11:41] LABS: Glucose,Whole Blood 131 mg/dL (75-99)
--- NOTE | 2017-09-11 11:46 | PN ---
PROGRESS NOTE DATE OF SERVICE: 09/10/2017 PRESENTING COMPLAINT: Short of breath. INTERVAL HISTORY: This patient was seen by me yesterday afternoon. Admitted with CHF exacerbation, bilateral pneumonia. Has been on Lasix. Respiratory leigh, patient has done much better. Minimal cough. Breathing is greatly improved. Appetite has become great. Still on Lasix. REVIEW OF SYSTEMS: Review of systems done for constitutional, cardiovascular, GI, pulmonary; relevant findings as above. CURRENT MEDICATIONS: Current medications reviewed include IV ceftazidime and p.o. Lasix. PHYSICAL EXAMINATION: On examination, temperature 97, pulse 87, respirations 18, blood pressure 112/63, pulse ox 98% on 2 L. GENERAL APPEARANCE: Sitting up in a chair, more comfortable. EYES: Pupils equal. Conjunctivae normal. HENT: External appearance of nose and ears normal. Oral cavity normal. NECK: JVD not raised. Mass not palpable. RESPIRATORY: decreased breath sounds, minimal crackles. CARDIOVASCULAR: First and second sounds normal. No edema. ABDOMEN: Soft, nontender. Liver and spleen not palpable. PSYCHIATRY: Alert and oriented x3. Mood and affect normal. INVESTIGATIONS: White count 10.9, hemoglobin 11.5. Potassium 5, BUN 63, creatinine 2.16. ASSESSMENT: 1. Bilateral pneumonia suspect gram-negative organism, clinically much improved. 2. Acute on chronic congestive heart failure exacerbation from diastolic dysfunction, ejection fraction 50% to 55%, euvolemic. 3. Acute renal failure from diuresis. Creatinine has gone up from 1.38 to 2.16. 4. Paroxysmal atrial fibrillation, currently in sinus rhythm. 5. Coronary artery disease, prior history of coronary artery bypass. 6. Diabetes mellitus type 2, chronically on insulin. 7. Essential hypertension. 8. Primary osteoarthritis. 9. Left below-knee amputation. 10.Chronic obstructive pulmonary disease. 11.Acute chronic obstructive pulmonary disease exacerbation in an ex-smoker, improved. 12.Chronic medical debility. Patient is wheelchair bound. 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 14.CODE STATUS: DO NOT RESUSCITATE. PLAN: Overall doing better. We will see how the renal function fares off. We will also switch the patient over to oral antibiotics. Patient will be going back to his place. MMODL / IJN: [id number] /
[2017-09-11 12:11] LABS: Calcium 8.6 mg/dL (8.4-10.2); Potassium 5.1 mmol/L (3.5-5.1)
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
[2017-09-11 17:02] LABS: Glucose,Whole Blood 178 mg/dL (75-99)
[2017-09-11] MEDS: LACTULOSE 20 GM/30 ML CUP PO PRN (17:54)
[2017-09-11] MEDS: ATORVASTATIN 10 MG TAB PO SCH (20:01)
[2017-09-11] MEDS: EZETIMIBE 10 MG TAB PO SCH (20:01)
[2017-09-11] MEDS: CEFDINIR 300 MG CAP PO SCH (20:05)
[2017-09-11] MEDS: LORATADINE 10 MG TAB PO SCH (20:05)
[2017-09-11 20:42] LABS: Glucose,Whole Blood 141 mg/dL (75-99)
[2017-09-11] MEDS: INSULIN DETEMIR 100 UNIT/ML 10 ML VIAL SQ SCH (20:44)
[2017-09-12 05:47] LABS: Glucose,Whole Blood 124 mg/dL (75-99)
[2017-09-12 06:15] LABS: Basophils # (A) 0.1 k/uL (0-0.2); Basophils % (A) 1 %; Eosinophils # (A) 0.8 k/uL (0-0.7); Eosinophils % (A) 8 %; HCT 37.2 % (39.0-53.0); Lymphocytes # (A) 1.1 k/uL (1.0-4.8); Lymphocytes % (A) 11 %; MCH 30.7 pg (25.0-35.0); MCHC 32.3 g/dL (31.0-37.0); MCV 95.1 fL (80.0-100.0); Mean Platelet Volume 8.3; Monocytes # (A) 0.4 k/uL (0-1.0); Monocytes % (A) 4 %; Neutrophils # (A) 7.5 k/uL (1.3-7.7); Neutrophils % (A) 75 %; Platelet Count 285 k/uL (150-450); RBC 3.91 m/uL (4.30-5.90); RDW 13.6 % (11.5-15.5); WBC 10.1 k/uL (3.8-10.6)
[2017-09-12] MEDS: INSULIN ASPART 100 UNIT/ML 1 ML 10 ML VIAL SQ SCH ×7 (06:31→21:56)
[2017-09-12 06:46] LABS: Calcium 8.8 mg/dL (8.4-10.2); Potassium 5.2 mmol/L (3.5-5.1)
[2017-09-12] MEDS: BUDESONIDE 1 MG/2 ML NEBU INHALATION SCH ×2 (08:15→20:18)
[2017-09-12] MEDS: IPRATROPIUM-ALBUTEROL 3 ML NEB INHALATION SCH ×4 (08:17→20:18)
[2017-09-12] MEDS: CEFDINIR 300 MG CAP PO SCH (09:08)
[2017-09-12] MEDS: ASPIRIN 81 MG PO SCH (09:08)
[2017-09-12] MEDS: CLOPIDOGREL 75 MG TAB PO SCH (09:08)
[2017-09-12] MEDS: FUROSEMIDE 40 MG TAB PO SCH ×2 (09:09→17:32)
[2017-09-12] MEDS: guaiFENesin 600 MG TABLET.ER PO SCH ×2 (09:09→20:50)
--- NOTE | 2017-09-12 09:53 | PN ---
PROGRESS NOTE DATE OF SERVICE: 09/11/2017 This 87-year-old gentleman admitted with shortness of breath with possible bilateral pneumonia and CHF also. The patient will be closely monitored. Patient is on Lasix at this time. No chest pain. No palpitations. No fever. PHYSICAL EXAM: On exam, alert and oriented x3. Pulse 82 blood pressure 119/60, respiration 18, temperature 97.2, pulse ox 99% on 2 L. HEENT: Conjunctivae normal. NECK: No jugular venous distention. CARDIOVASCULAR: S1 and S2 muffled. RESPIRATORY: Breath sounds diminished at the bases. Bilateral scattered rhonchi and crackles. ABDOMEN: Soft, nontender. LEGS: No edema, no swelling. NERVOUS SYSTEM: No focal deficits. LABS: Sodium 135, potassium 5.1. ASSESSMENT: 1. Bilateral pneumonia possibly gram-negative. 2. Congestive heart failure acute exacerbation acute on chronic diastolic dysfunction, ejection fraction 50% to 55%. 3. Acute renal failure. 4. Paroxysmal atrial fibrillation. 5. Coronary artery disease, CABG. 6. Diabetes mellitus type 2. 7. Hypertension. 8. Degenerative joint disease. 9. Left below-knee amputation. 10.Chronic obstructive pulmonary disease with acute exacerbation. 11.Chronic medical debility. 12.Gait dysfunction. 13.Chronic kidney disease stage III. 14.NO CODE, NO CPR, NO VENT. RECOMMENDATIONS AND DISCUSSION: This 87-year-old gentleman who presented with multiple complex medical issues, will monitor the patient closely. Continue the current medications, continue symptomatic treatment. Otherwise at this time I would recommend continue with Lasix, monitor the fluid electrolyte balance closely. The chest x-ray showed significant lesions at this time. The patient is also complaining of weakness. I would recommend PT, OT evaluation, possible ECF rehab also. Closely follow with Cardiology, Pulmonology. Prognosis guarded. Further recommendations to follow. CURRENT MEDICATIONS: 1. Tylenol 650 q.6 p.r.n. 2. [place] 5 mg q.i.d. 3. DuoNeb q.i.d. and p.r.n. 4. Aspirin 81 mg. 5. Lipitor 10 mg. 6. Pulmicort 1 mg b.i.d. 7. Omnicef. 8. Plavix 75 mg daily. 9. Valium. 10.Zetia. 11.Flonase. 12.Lasix. 13.Mucinex. 14.NovoLog. 15.Levemir. 16.Cephulac. 17.Claritin. 18.Milk of magnesia. 19.Nitrostat. 20.Zofran. Doses are reviewed. REVIEW OF SYSTEMS: CARDIOVASCULAR SYSTEM: As mentioned earlier. RESPIRATORY SYSTEM: As mentioned earlier. GI: No nausea, vomiting or diarrhea. : No dysuria. NERVOUS SYSTEM: No numbness or weakness. MMODL / IJN: [id number] /
--- NOTE | 2017-09-12 11:07 | P.PN ---
Subjective Progress Note Date: 09/12/17 Principal diagnosis: CHF secondary to diastole dysfunction This is a pleasant 87-year-old gentleman with a past medical history significant for coronary artery disease and status post coronary artery bypass grafting 4 in 2004, diabetes, hypertension, dyslipidemia, and status post left below the knee amputation, was also noncompliant, presented to the hospital complaining of shortness of breath. He was in his usual state of health until about 3 days ago when he started experiencing progressive dyspnea associated with cough productive of sputum. No fever or chills. No chest pain or chest discomfort, dizziness or lightheadedness, heart racing or fluttering, or syncope. The chest x-ray showed findings consistent with CHF. The BNP was checked and came in to be around 2000. 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 The last echocardiogram was performed in 2015 and revealed normal LV function. The cardiac enzymes were checked and came in to be unremarkable. Also physical examination the patient does have bilateral expiratory wheezing there is no evidence of lower extremities edema. On follow-up with the patient today, he is feeling better in terms of shortness of breath. No chest pain or chest discomfort. He is on Lasix by mouth. He is also on antibiotic. Objective - Vital Signs Vital signs: Vital Signs Temp 97.7 F 09/12/17 08:00 Pulse 76 09/12/17 08:32 Resp 16 09/12/17 08:00 BP 104/57 09/12/17 08:00 Pulse Ox 98 09/12/17 08:17 Intake & Output 09/11/17 09/12/17 09/12/17 18:59 06:59 18:59 Intake Total 200 240 Output Total 575 375 Balance -375 -375 240 Weight 87.5 kg 88.5 kg Intake: Oral 200 240 Output: Urine 575 375 Other: Voiding Method Urinal Urinal Urinal - Constitutional General appearance: Present: no acute distress - Respiratory Respiratory: bilateral: rhonchi - Cardiovascular Heart sounds: normal: S1, S2 - Labs CBC & Chem 7: 09/12/17 05:36 09/12/17 05:36 Labs: Abnormal Lab Results - Last 24 Hours (Table) 09/11/17 09/11/17 09/11/17 Range/Units 11:39 11:40 17:00 RBC (4.30-5.90) m/uL Hgb (13.0-17.5) gm/dL Hct (39.0-53.0) % Eosinophils # (0-0.7) k/uL Sodium 135 L (137-145) mmol/L Potassium (3.5-5.1) mmol/L Chloride 97 L (98-107) mmol/L Carbon Dioxide (22-30) mmol/L BUN 56 H (9-20) mg/dL Creatinine 1.83 H (0.66-1.25) mg/dL Glucose 129 H (74-99) mg/dL POC Glucose (mg/dL) 131 H 178 H (75-99) mg/dL 09/11/17 09/12/17 09/12/17 Range/Units 20:41 05:36 05:36 RBC 3.91 L (4.30-5.90) m/uL Hgb 12.0 L (13.0-17.5) gm/dL Hct 37.2 L (39.0-53.0) % Eosinophils # 0.8 H (0-0.7) k/uL Sodium (137-145) mmol/L Potassium 5.2 H (3.5-5.1) mmol/L Chloride (98-107) mmol/L Carbon Dioxide 31 H (22-30) mmol/L BUN 63 H (9-20) mg/dL Creatinine 2.30 H (0.66-1.25) mg/dL Glucose 124 H (74-99) mg/dL POC Glucose (mg/dL) 141 H (75-99) mg/dL 09/12/17 Range/Units 05:46 RBC (4.30-5.90) m/uL Hgb (13.0-17.5) gm/dL Hct (39.0-53.0) % Eosinophils # (0-0.7) k/uL Sodium (137-145) mmol/L Potassium (3.5-5.1) mmol/L Chloride (98-107) mmol/L Carbon Dioxide (22-30) mmol/L BUN (9-20) mg/dL Creatinine (0.66-1.25) mg/dL Glucose (74-99) mg/dL POC Glucose (mg/dL) 124 H (75-99) mg/dL Microbiology - Last 24 Hours (Table) 09/06/17 10:25 Blood Culture - Preliminary Blood No Growth after 120 hours Assessment and Plan Assessment: Assessment #1 congestive heart failure exacerbation and known if it's due to systolic or diastolic function at this point. Probably secondary to diastolic dysfunction #2 cannot exclude #3 known CAD and status post CABG #4 no noncompliance with medications Plan #1 continue the current dose of Lasix by mouth. Continue the antibiotic #2 monitor his kidney function and electrolytes #3 follow-up with the patient.. Thank you for allowing us participate in his care and we'll continue following up with the patient
[2017-09-12 11:08] LABS: Glucose,Whole Blood 169 mg/dL (75-99)
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
[2017-09-12] MEDS: METOPROLOL TARTRATE 12.5 MG TAB PO SCH ×2 (12:01→15:51)
--- NOTE | 2017-09-12 12:07 | XR ---
EXAMINATION TYPE: XR chest 1V portable DATE OF EXAM: 09/12/2017 COMPARISON: Prior chest 09/11/2017 09/09/2017 HISTORY: Congestive heart failure TECHNIQUE: Single frontal view of the chest is obtained. FINDINGS: There is some improvement in visualization of the left hemidiaphragm, the interstitium is improved. IMPRESSION: Improvement in patient's volume status.
[2017-09-12] MEDS: PIPERACILLIN-TAZOBACTAM 3.375 GM in DEXTROSE/WATER 1 50ML.BAG IVPB SCH (14:14)
[2017-09-12] MEDS: HYDROcodone/APAP 5-325MG 1 EACH TAB PO PRN ×2 (14:28→20:53)
[2017-09-12 16:31] LABS: Glucose,Whole Blood 204 mg/dL (75-99)
--- NOTE | 2017-09-12 16:41 | PN ---
PROGRESS NOTE DATE OF SERVICE: 09/12/2017. INTERVAL HISTORY: This 87-year-old gentleman who was admitted with bilateral pneumonia possibly gram- negative is being closely monitored. No chest pain. No palpitations. No fever. PHYSICAL EXAM: Alert and oriented x2. Pulse 75, blood pressure ntd, respiration 16, temperature 97.2, pulse ox 97% on 2 L. HEENT is conjunctivae normal. Oral mucosa moist. NECK: No jugular venous distention. No carotid bruit. No lymph node enlargement. CARDIOVASCULAR: S1, S2 muffled. RESPIRATION: Breath sounds diminished in the bases. A few scattered rhonchi and crackles. ABDOMEN: Soft, nontender. Legs are no edema, no swelling. CENTRAL NERVOUS SYSTEM: No focal deficits. LABS: WBC 10.9, hemoglobin 12, sodium 130, potassium . Creatinine is 2.3. ASSESSMENT: 1. Bilateral pneumonia possibly gram-negative, left more than the right. 2. congestive heart failure acute exacerbation with acute on chronic diastolic dysfunction, ejection fraction 50-55%. 3. Acute renal failure. 4. Paroxysmal atrial fibrillation. 5. Coronary artery disease/coronary artery bypass grafting. 6. Diabetes type 2. 7. Hypertension. 8. Degenerative joint disease. 9. Left below-knee amputation. 10.Chronic obstructive pulmonary disease, acute exacerbation. 11.Chronic medical debility. 12.Gait dysfunction. 13.Chronic kidney stage 2. 14.NO CODE, NO CPR, NO VENT. RECOMMENDATIONS AND DISCUSSION: Continue current medications, management and symptomatic treatment. We will initiate broad-spectrum IV antibiotics. Repeat cultures. Otherwise PT/OT evaluation. Guarded prognosis. Further recommendations to follow. MMODL / IJN: [id number] / STEPHENIE
[2017-09-12 20:42] LABS: Glucose,Whole Blood 246 mg/dL (75-99)
[2017-09-12] MEDS: EZETIMIBE 10 MG TAB PO SCH (20:50)
[2017-09-12] MEDS: ATORVASTATIN 10 MG TAB PO SCH (20:50)
[2017-09-12] MEDS: LORATADINE 10 MG TAB PO SCH (20:50)
[2017-09-12] MEDS: ONDANSETRON 4 MG/2 ML VIAL IVP PRN (21:57)
[2017-09-12] MEDS: INSULIN DETEMIR 100 UNIT/ML 10 ML VIAL SQ SCH (21:57)
[2017-09-13 06:08] LABS: Basophils # (A) 0.1 k/uL (0-0.2); Basophils % (A) 1 %; Eosinophils # (A) 0.9 k/uL (0-0.7); Eosinophils % (A) 7 %; HCT 35.9 % (39.0-53.0); HGB 11.5 gm/dL (13.0-17.5); Lymphocytes # (A) 1.5 k/uL (1.0-4.8); Lymphocytes % (A) 12 %; MCH 30.6 pg (25.0-35.0); MCHC 32.1 g/dL (31.0-37.0); MCV 95.4 fL (80.0-100.0); Monocytes # (A) 0.5 k/uL (0-1.0); Monocytes % (A) 4 %; Neutrophils # (A) 8.9 k/uL (1.3-7.7); Neutrophils % (A) 75 %; Platelet Count 260 k/uL (150-450); RBC 3.77 m/uL (4.30-5.90); RDW 13.9 % (11.5-15.5)
[2017-09-13 06:16] LABS: Glucose,Whole Blood 155 mg/dL (75-99)
[2017-09-13 06:26] LABS: Calcium 8.6 mg/dL (8.4-10.2); Potassium 5.1 mmol/L (3.5-5.1)
[2017-09-13] MEDS: INSULIN ASPART 100 UNIT/ML 1 ML 10 ML VIAL SQ SCH ×7 (07:53→22:45)
[2017-09-13] MEDS: PIPERACILLIN-TAZOBACTAM 3.375 GM in DEXTROSE/WATER 1 50ML.BAG IVPB SCH ×4 (07:57→23:14)
[2017-09-13] MEDS: BUDESONIDE 1 MG/2 ML NEBU INHALATION SCH ×2 (08:33→19:13)
[2017-09-13] MEDS: IPRATROPIUM-ALBUTEROL 3 ML NEB INHALATION SCH ×4 (08:33→19:13)
[2017-09-13] MEDS: ASPIRIN 81 MG PO SCH (08:51)
[2017-09-13] MEDS: CLOPIDOGREL 75 MG TAB PO SCH (08:51)
[2017-09-13] MEDS: METOPROLOL TARTRATE 12.5 MG TAB PO SCH (08:52)
[2017-09-13] MEDS: guaiFENesin 600 MG TABLET.ER PO SCH ×2 (08:52→20:30)
[2017-09-13] MEDS: HYDROcodone/APAP 5-325MG 1 EACH TAB PO PRN ×2 (08:54→20:29)
--- NOTE | 2017-09-13 08:54 | P.PN ---
Subjective Progress Note Date: 09/13/17 Principal diagnosis: CHF secondary to diastole dysfunction This is a pleasant 87-year-old gentleman with a past medical history significant for coronary artery disease and status post coronary artery bypass grafting 4 in 2004, diabetes, hypertension, dyslipidemia, and status post left below the knee amputation, was also noncompliant, presented to the hospital complaining of shortness of breath. He was in his usual state of health until about 3 days ago when he started experiencing progressive dyspnea associated with cough productive of sputum. No fever or chills. No chest pain or chest discomfort, dizziness or lightheadedness, heart racing or fluttering, or syncope. The chest x-ray showed findings consistent with CHF. The BNP was checked and came in to be around 2000. 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 The last echocardiogram was performed in 2015 and revealed normal LV function. The cardiac enzymes were checked and came in to be unremarkable. Also physical examination the patient does have bilateral expiratory wheezing there is no evidence of lower extremities edema. On follow-up with the patient today, he is feeling worse than yesterday. In spite the chest x-ray showing finding of improvement in the pulmonary vascular congestions. He still have significant crackles in both lung masters mainly in the bases. The creatinine continues to be stable. I am going to DC the Lasix by mouth and start the patient on Lasix IV and continue monitor the kidney function and electrolytes. Objective - Vital Signs Vital signs: Vital Signs Temp 97.6 F 09/12/17 15:51 Pulse 86 09/13/17 08:50 Resp 16 09/12/17 16:00 BP 91/53 09/12/17 15:51 Pulse Ox 97 09/13/17 08:36 Intake & Output 09/12/17 09/13/17 09/13/17 18:59 06:59 18:59 Intake Total 840 236 Output Total 1000 800 Balance -160 -800 236 Weight 95 kg Intake: Oral 840 236 Output: Urine 1000 800 Other: Voiding Method Urinal - Constitutional General appearance: Present: no acute distress - Respiratory Respiratory: bilateral: rales - Cardiovascular Heart sounds: normal: S1, S2 - Labs CBC & Chem 7: 09/13/17 05:51 09/13/17 05:51 Labs: Abnormal Lab Results - Last 24 Hours (Table) 09/12/17 09/12/17 09/12/17 Range/Units 11:06 16:30 20:41 WBC (3.8-10.6) k/uL RBC (4.30-5.90) m/uL Hgb (13.0-17.5) gm/dL Hct (39.0-53.0) % Neutrophils # (1.3-7.7) k/uL Eosinophils # (0-0.7) k/uL Chloride (98-107) mmol/L Carbon Dioxide (22-30) mmol/L BUN (9-20) mg/dL Creatinine (0.66-1.25) mg/dL Glucose (74-99) mg/dL POC Glucose (mg/dL) 169 H 204 H 246 H (75-99) mg/dL 09/13/17 09/13/17 09/13/17 Range/Units 05:51 05:51 06:15 WBC 12.0 H (3.8-10.6) k/uL RBC 3.77 L (4.30-5.90) m/uL Hgb 11.5 L (13.0-17.5) gm/dL Hct 35.9 L (39.0-53.0) % Neutrophils # 8.9 H (1.3-7.7) k/uL Eosinophils # 0.9 H (0-0.7) k/uL Chloride 97 L (98-107) mmol/L Carbon Dioxide 32 H (22-30) mmol/L BUN 67 H (9-20) mg/dL Creatinine 2.37 H (0.66-1.25) mg/dL Glucose 159 H (74-99) mg/dL POC Glucose (mg/dL) 155 H (75-99) mg/dL Microbiology - Last 24 Hours (Table) 09/06/17 10:25 Blood Culture - Final Blood No Growth after 144 hours Assessment and Plan Assessment: Assessment #1 congestive heart failure exacerbation and known if it's due to systolic or diastolic function at this point. Probably secondary to diastolic dysfunction #2 cannot exclude #3 known CAD and status post CABG #4 no noncompliance with medications Plan #1 DC Lasix IV and start the patient on Lasix by mouth #2 monitor his kidney function and electrolytes #3 follow-up with the patient.. Thank you for allowing us participate in his care and we'll continue following up with the patient
[2017-09-13] MEDS: FUROSEMIDE 10 MG/ML 4 ML VIAL IV SCH ×2 (09:35→20:30)
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
[2017-09-13 11:27] LABS: Glucose,Whole Blood 217 mg/dL (75-99)
[2017-09-13 16:51] LABS: Glucose,Whole Blood 143 mg/dL (75-99)
--- NOTE | 2017-09-13 17:06 | PN ---
PROGRESS NOTE DATE OF SERVICE: 09/13/2017 This 87-year-old gentleman admitted with bilateral pneumonia possibly left more than right, is being closely monitored. No chest pain. No palpitations. No fever. Patient is put back on IV Lasix. ECF rehab is also a possibility even though home care is also being considered. No chest pain. No palpitations. PHYSICAL EXAM: Alert and oriented times three. Pulse 84, blood pressure 118/50, respiration 18, temperature 97.8, pulse ox 98% on 2 L. HEENT is conjunctivae normal. Oral mucosa moist. NECK is no jugular venous distention. No carotid bruit. No lymph node enlargement. CARDIOVASCULAR system: S1, S2 muffled. RESPIRATORY: Breath sounds diminished in the bases. Bilateral scattered rhonchi and crackles. ABDOMEN: Soft, nontender. LEGS: No edema and no swelling. CENTRAL NERVOUS SYSTEM: Diffusely weak. LAB STUDIES: WBC 12, hemoglobin 11.5, creatinine is 2.37. ASSESSMENT: 1. Bilateral pneumonia, left more than the right possibly gram-negative. 2. Congestive heart failure acute exacerbation with acute on chronic diastolic dysfunction, ejection fraction 50-55%. 3. Acute renal failure. 4. Paroxysmal atrial fibrillation. 5. Coronary artery disease/coronary artery bypass grafting. 6. Diabetes type 2. 7. Hypertension. 8. Degenerative joint disease. 9. Left below-knee amputation. 10.Chronic obstructive pulmonary disease acute exacerbation. 11.Chronic medical debility. 12.Gait dysfunction. 13.Chronic kidney disease stage 2. 14.NO CODE, NO CPR, NO VENT. RECOMMENDATIONS AND DISCUSSION: I recommend to continue current medications, medical management and symptomatic treatment. Continue with broad-spectrum IV antibiotics. Continue the Lasix. I would also recommend Nephrology consultation. Continue PT/OT evaluation and social media marketing specialist for discharge discussion and once the patient is improved and cleared by Pulmonary and Cardiology, the patient may be able to be discharged. Currently we will continue with intravenous medications. MMODL / IJN: [id number] /
[2017-09-13] MEDS: ATORVASTATIN 10 MG TAB PO SCH (20:30)
[2017-09-13] MEDS: EZETIMIBE 10 MG TAB PO SCH (20:30)
[2017-09-13] MEDS: LORATADINE 10 MG TAB PO SCH (20:31)
[2017-09-13 21:27] LABS: Glucose,Whole Blood 245 mg/dL (75-99)
[2017-09-13] MEDS: INSULIN DETEMIR 100 UNIT/ML 10 ML VIAL SQ SCH (22:45)
[2017-09-14 06:15] LABS: Basophils # (A) 0.1 k/uL (0-0.2); Basophils % (A) 1 %; Eosinophils # (A) 0.9 k/uL (0-0.7); Eosinophils % (A) 8 %; HGB 11.7 gm/dL (13.0-17.5); Lymphocytes # (A) 1.2 k/uL (1.0-4.8); Lymphocytes % (A) 11 %; MCH 29.8 pg (25.0-35.0); MCHC 31.6 g/dL (31.0-37.0); MCV 94.4 fL (80.0-100.0); Mean Platelet Volume 8.2; Monocytes # (A) 0.5 k/uL (0-1.0); Monocytes % (A) 4 %; Neutrophils # (A) 8.5 k/uL (1.3-7.7); Neutrophils % (A) 75 %; Platelet Count 294 k/uL (150-450); RBC 3.92 m/uL (4.30-5.90); RDW 13.2 % (11.5-15.5); WBC 11.4 k/uL (3.8-10.6)
[2017-09-14 06:26] LABS: Calcium 8.9 mg/dL (8.4-10.2); Potassium 5.1 mmol/L (3.5-5.1)
[2017-09-14 06:47] LABS: Glucose,Whole Blood 161 mg/dL (75-99)
[2017-09-14] MEDS: HYDROcodone/APAP 5-325MG 1 EACH TAB PO PRN (06:58)
[2017-09-14] MEDS: INSULIN ASPART 100 UNIT/ML 1 ML 10 ML VIAL SQ SCH ×7 (07:04→21:56)
[2017-09-14] MEDS: ASPIRIN 81 MG PO SCH (07:36)
[2017-09-14] MEDS: FUROSEMIDE 10 MG/ML 4 ML VIAL IV SCH (07:36)
[2017-09-14] MEDS: CLOPIDOGREL 75 MG TAB PO SCH (07:36)
[2017-09-14] MEDS: METOPROLOL TARTRATE 12.5 MG TAB PO SCH (07:40)
[2017-09-14] MEDS: guaiFENesin 600 MG TABLET.ER PO SCH ×2 (07:40→22:00)
[2017-09-14] MEDS: IPRATROPIUM-ALBUTEROL 3 ML NEB INHALATION SCH ×4 (07:50→21:06)
[2017-09-14] MEDS: BUDESONIDE 1 MG/2 ML NEBU INHALATION SCH ×2 (07:50→21:06)
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
[2017-09-14] MEDS: PIPERACILLIN-TAZOBACTAM 3.375 GM in DEXTROSE/WATER 1 50ML.BAG IVPB SCH ×2 (09:54→17:09)
[2017-09-14] MEDS: ONDANSETRON 4 MG/2 ML VIAL IVP PRN (09:55)
[2017-09-14 11:19] LABS: Glucose,Whole Blood 191 mg/dL (75-99)
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
--- NOTE | 2017-09-14 11:40 | P.PN ---
Subjective Progress Note Date: 09/14/17 Principal diagnosis: CHF secondary to diastole dysfunction This is a pleasant 87-year-old gentleman with a past medical history significant for coronary artery disease and status post coronary artery bypass grafting 4 in 2004, diabetes, hypertension, dyslipidemia, and status post left below the knee amputation, was also noncompliant, presented to the hospital complaining of shortness of breath. He was in his usual state of health until about 3 days ago when he started experiencing progressive dyspnea associated with cough productive of sputum. No fever or chills. No chest pain or chest discomfort, dizziness or lightheadedness, heart racing or fluttering, or syncope. The chest x-ray showed findings consistent with CHF. The BNP was checked and came in to be around 2000. 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 The last echocardiogram was performed in 2015 and revealed normal LV function. The cardiac enzymes were checked and came in to be unremarkable. Also physical examination the patient does have bilateral expiratory wheezing there is no evidence of lower extremities edema. yesterday he was more short of breath. he was also having crackles in both lung masters. I did stop the Lasix by mouth and start the patient on Lasix IV. On follow-up with him today, he is feeling better indeterminable shortness of breath. He has been urinating throughout the night. The creatinine continues to be stable around 2.5. I would continue the patient on Lasix IV for additional 24 hours and continue monitor the kidney function and electrolytes and follow-up with him. Objective - Vital Signs Vital signs: Vital Signs Temp 97.9 F 09/14/17 07:31 Pulse 80 09/14/17 08:07 Resp 18 09/14/17 07:50 BP 108/56 09/14/17 07:31 Pulse Ox 99 09/14/17 07:53 Intake & Output 09/13/17 09/14/17 09/14/17 18:59 06:59 18:59 Intake Total 672 90 240 Output Total 625 220 Balance 47 90 20 Intake: Oral 672 90 240 Output: Urine 625 220 Stool 0 Other: Voiding Method Urinal Urinal Urinal # Voids 0 # Bowel Movements 0 - Constitutional General appearance: Present: no acute distress - Respiratory Respiratory: bilateral: rales - Cardiovascular Heart sounds: normal: S1, S2 - Labs CBC & Chem 7: 09/14/17 05:38 09/14/17 05:38 Labs: Abnormal Lab Results - Last 24 Hours (Table) 09/13/17 09/13/17 09/14/17 Range/Units 16:47 21:25 05:38 WBC 11.4 H (3.8-10.6) k/uL RBC 3.92 L (4.30-5.90) m/uL Hgb 11.7 L (13.0-17.5) gm/dL Hct 37.0 L (39.0-53.0) % Neutrophils # 8.5 H (1.3-7.7) k/uL Eosinophils # 0.9 H (0-0.7) k/uL Sodium (137-145) mmol/L Chloride (98-107) mmol/L BUN (9-20) mg/dL Creatinine (0.66-1.25) mg/dL Glucose (74-99) mg/dL POC Glucose (mg/dL) 143 H 245 H (75-99) mg/dL 09/14/17 09/14/17 09/14/17 Range/Units 05:38 06:40 11:11 WBC (3.8-10.6) k/uL RBC (4.30-5.90) m/uL Hgb (13.0-17.5) gm/dL Hct (39.0-53.0) % Neutrophils # (1.3-7.7) k/uL Eosinophils # (0-0.7) k/uL Sodium 135 L (137-145) mmol/L Chloride 97 L (98-107) mmol/L BUN 70 H (9-20) mg/dL Creatinine 2.53 H (0.66-1.25) mg/dL Glucose 163 H (74-99) mg/dL POC Glucose (mg/dL) 161 H 191 H (75-99) mg/dL Assessment and Plan Assessment: Assessment #1 CHF exacerbation secondary to diastolic dysfunction #2 pneumonia #3 known CAD and status post CABG #4 peripheral arterial disease and status post left below the knee amputation Plan #1 Continue Lasix IV for additional 24 hours #2 monitor his kidney function and electrolytes #3 follow-up with the patient.. Thank you for allowing us participate in his care and we'll continue following up with the patient
[2017-09-14 13:14] LABS: Appearance,Urine Clear (Clear); Bilirubin,Urine Negative (Negative); Blood,Urine Trace (Negative); Color,Urine Light Yellow; Glucose,Urine (UA) Negative (Negative); Ketones,Urine Negative (Negative); Leukocyte Esterase,Urine Negative (Negative); Mucus,Urine Rare /hpf; Nitrite,Urine Negative (Negative); PH, Urine 5.5 (5.0-8.0); Protein,Urine Trace (Negative); RBC,Urine <1 /hpf (0-5); Specific Gravity,Urine 1.007 (1.001-1.035); Squamous Epithelial Cell,Urine <1 /hpf (0-4); Urobilinogen,Urine <2.0 mg/dL (<2.0); WBC,Urine <1 /hpf (0-5)
--- NOTE | 2017-09-14 14:36 | US ---
EXAMINATION TYPE: US kidneys/renal and bladder DATE OF EXAM: 09/14/2017 COMPARISON: NONE CLINICAL HISTORY: jamshid. no symptoms per patient EXAM MEASUREMENTS: Right Kidney: 8.2 x 4.3 x 4.4 cm Left Kidney: 8.6 x 4.2 x 5.3 cm Right Kidney: smaller in size with no hydronephrosis or masses seen Left Kidney: limited views due to rib and bowel gas, smaller in size with no hydronephrosis or masses seen Bladder: wnl Bilateral Jets seen: only right Cortical medullary differentiation is maintained. There is no ascites. IMPRESSION: Exam somewhat limited. No evident hydronephrosis.
[2017-09-14 16:59] LABS: Glucose,Whole Blood 188 mg/dL (75-99)
[2017-09-14 20:29] LABS: Glucose,Whole Blood 273 mg/dL (75-99)
[2017-09-14] MEDS: INSULIN DETEMIR 100 UNIT/ML 10 ML VIAL SQ SCH (21:56)
[2017-09-14] MEDS: EZETIMIBE 10 MG TAB PO SCH (22:00)
[2017-09-14] MEDS: ATORVASTATIN 10 MG TAB PO SCH ×2 (22:01→22:06)
[2017-09-14] MEDS: LORATADINE 10 MG TAB PO SCH (22:01)
[2017-09-14] MEDS ORDERED: HYDROcodone/APAP 5-325MG 1 EACH TAB ONE (23:08)
[2017-09-15] MEDS: PIPERACILLIN-TAZOBACTAM 3.375 GM in DEXTROSE/WATER 1 50ML.BAG IVPB SCH ×2 (05:32→13:11)
[2017-09-15] MEDS: IPRATROPIUM-ALBUTEROL 3 ML NEB INHALATION SCH ×4 (07:23→19:58)
[2017-09-15] MEDS: BUDESONIDE 1 MG/2 ML NEBU INHALATION SCH ×2 (07:23→19:57)
[2017-09-15 07:26] LABS: Glucose,Whole Blood 167 mg/dL (75-99)
[2017-09-15] MEDS: INSULIN ASPART 100 UNIT/ML 1 ML 10 ML VIAL SQ SCH ×7 (07:43→22:02)
[2017-09-15] MEDS: guaiFENesin 600 MG TABLET.ER PO SCH ×2 (07:48→22:03)
[2017-09-15] MEDS: ASPIRIN 81 MG PO SCH (07:48)
[2017-09-15] MEDS: CLOPIDOGREL 75 MG TAB PO SCH (07:48)
[2017-09-15] MEDS: METOPROLOL TARTRATE 12.5 MG TAB PO SCH (07:49)
[2017-09-15 08:14] LABS: Calcium 8.6 mg/dL (8.4-10.2); Magnesium 2.3 mg/dL (1.6-2.3); Potassium 4.7 mmol/L (3.5-5.1)
[2017-09-15 08:50] LABS: Basophils # (A) 0.1 k/uL (0-0.2); Basophils % (A) 1 %; Eosinophils # (A) 0.7 k/uL (0-0.7); Eosinophils % (A) 6 %; HCT 37.5 % (39.0-53.0); Lymphocytes # (A) 1.3 k/uL (1.0-4.8); Lymphocytes % (A) 12 %; MCH 30.1 pg (25.0-35.0); MCHC 32.1 g/dL (31.0-37.0); MCV 93.9 fL (80.0-100.0); Monocytes # (A) 0.5 k/uL (0-1.0); Monocytes % (A) 4 %; Neutrophils # (A) 8.5 k/uL (1.3-7.7); Neutrophils % (A) 76 %; Platelet Count 325 k/uL (150-450); RDW 13.3 % (11.5-15.5); WBC 11.2 k/uL (3.8-10.6)
[2017-09-15] MEDS ORDERED: FUROSEMIDE 10 MG/ML 4 ML VIAL IV SCH (09:00)
--- NOTE | 2017-09-15 11:24 | P.PN ---
Subjective Progress Note Date: 09/14/17 Principal diagnosis: Acute exacerbation diastolic CHF, pneumonia 87-year-old gentleman with a past medical history significant for coronary artery disease and status post coronary artery bypass grafting 4 in 2004, diabetes, hypertension, dyslipidemia, and status post left below the knee amputation, was also noncompliant, presented to the hospital complaining of shortness of breath. He was in his usual state of health until about 3 days ago when he started experiencing progressive dyspnea associated with cough productive of sputum. No fever or chills. No chest pain or chest discomfort, dizziness or lightheadedness, heart racing or fluttering, or syncope. The chest x-ray showed findings consistent with CHF. The BNP was checked and came in to be around 2000. 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 The last echocardiogram was performed in 2015 and revealed normal LV function. The cardiac enzymes were checked and came in to be unremarkable. Patient is breathing comfortably and maintaining oxygen saturation in high 90s on 3 L; his creatinine is up to 2.53; nephrology is consulted for further recommendations Objective - Vital Signs Vital signs: Vital Signs Temp 97.9 F 09/14/17 07:31 Pulse 76 09/14/17 11:38 Resp 18 09/14/17 07:50 BP 108/56 09/14/17 07:31 Pulse Ox 99 09/14/17 07:53 Intake & Output 09/13/17 09/14/17 09/14/17 18:59 06:59 18:59 Intake Total 672 90 240 Output Total 625 220 Balance 47 90 20 Intake: Oral 672 90 240 Output: Urine 625 220 Stool 0 Other: Voiding Method Urinal Urinal Urinal # Voids 0 # Bowel Movements 0 - Exam - Constitutional General appearance: Present: average body habitus, cooperative, no acute distress - EENT Eyes: Present: anicteric sclerae, EOMI, PERRLA, normal appearance ENT: Present: hearing grossly normal, normal oropharynx Ears: bilateral: normal - Neck Neck: Present: normal ROM. Absent: lymphadenopathy, rigidity, thyromegaly Carotids: negative: bruit present Thyroid: bilateral: normal size, negative: enlarged, nodule - Respiratory Respiratory: bilateral: CTA, negative: rales, rhonchi, wheezing - Cardiovascular Rhythm: regular Heart sounds: normal: S1, S2 Abnormal Heart Sounds: Absent: systolic murmur, diastolic murmur - Gastrointestinal General gastrointestinal: Present: normal bowel sounds, soft. Absent: distended , organomegaly, tenderness - Genitourinary Genitourinary Comment(s): deferred - Integumentary Integumentary: Present: normal turgor. Absent: jaundiced, rash, ulcer - Neurologic Neurologic: Present: CNII-XII intact. Absent: focal deficits - Musculoskeletal Musculoskeletal: Present: gait normal, strength equal bilaterally - Psychiatric Psychiatric: Present: A&O x's 3, appropriate affect, intact judgment & insight - Labs CBC & Chem 7: 09/15/17 07:27 09/15/17 07:27 Labs: Abnormal Lab Results - Last 24 Hours (Table) 09/13/17 09/13/17 09/14/17 Range/Units 16:47 21:25 05:38 WBC 11.4 H (3.8-10.6) k/uL RBC 3.92 L (4.30-5.90) m/uL Hgb 11.7 L (13.0-17.5) gm/dL Hct 37.0 L (39.0-53.0) % Neutrophils # 8.5 H (1.3-7.7) k/uL Eosinophils # 0.9 H (0-0.7) k/uL Sodium (137-145) mmol/L Chloride (98-107) mmol/L BUN (9-20) mg/dL Creatinine (0.66-1.25) mg/dL Glucose (74-99) mg/dL POC Glucose (mg/dL) 143 H 245 H (75-99) mg/dL 09/14/17 09/14/17 09/14/17 Range/Units 05:38 06:40 11:11 WBC (3.8-10.6) k/uL RBC (4.30-5.90) m/uL Hgb (13.0-17.5) gm/dL Hct (39.0-53.0) % Neutrophils # (1.3-7.7) k/uL Eosinophils # (0-0.7) k/uL Sodium 135 L (137-145) mmol/L Chloride 97 L (98-107) mmol/L BUN 70 H (9-20) mg/dL Creatinine 2.53 H (0.66-1.25) mg/dL Glucose 163 H (74-99) mg/dL POC Glucose (mg/dL) 161 H 191 H (75-99) mg/dL Assessment and Plan Assessment: 1 acute hypoxic respiratory failure with a suspected left lung pneumonia as evident on chest x-ray from this current admission. Suspect bacterial pneumonia of the left lung sputum culture reveals Katharina. Blood cultures negative. - Pulmonary recommending to complete an course of antibiotics; continue with current treatment plan 2 acute exacerbation of diastolic congestive heart failure. - Patient was started on IV Lasix on 09/13/2018; patient is showing clinical improvement - Cardiology is recommending to continue Lasix for another 24 hours. - Continue to monitor strict MARY's, renal function and electrolytes 3 coronary artery disease with previous bypass surgery currently free of any angina 4 diabetes mellitus; blood sugars are ranging between 188-273 - We will continue with current treatment plan and continue to monitor Accu- Cheks with insulin sliding scale 5 stage III chronic kidney failure; - Creatinine is at 2.53; nephrology is consulted for further recommendations 6 hypertension; fairly controlled on current medication 7 hyperlipidemia; continue to use home dose of atorvastatin 10 mg by mouth daily at bedtime along with study a 10 mg by mouth daily at bedtime 8 peripheral vascular disease with 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
--- NOTE | 2017-09-15 12:08 | PN ---
PROGRESS NOTE Mr. Wilson was on the 6th floor and he came down to the medical floor now. He is doing well. He does not have any shortness of breath. No chest discomfort. No dizziness, lightheadedness, his mouth is dry. PHYSICAL EXAMINATION: His blood pressure is 147/64 mmHg, normal respirations, pulse rate in the 80s, afebrile at 98.3 degrees Fahrenheit. Breath sounds are reduced bilaterally with crackles at the bases bilaterally. Heart sounds, S1, S2 are soft. Abdomen is soft. His oral mucosa is dry. IMPRESSION: 1. Congestive heart failure exacerbation secondary to diastolic dysfunction. 2. Pneumonitis, being treated for this. 3. History of coronary artery disease, status post coronary artery bypass grafting. 4. History of PVD, status post below-knee amputation and his BUN and creatinine is rising and I would suggest switching from IV to p.o. Lasix. At this point, it is being managed by Nephrology. From a cardiac standpoint he appears to be stable. Please call us only as needed. MMODL / IJN: [id number] /
[2017-09-15 13:04] LABS: Glucose,Whole Blood 191 mg/dL (75-99)
[2017-09-15] MEDS: HYDROcodone/APAP 5-325MG 1 EACH TAB PO PRN ×2 (13:04→19:39)
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
--- NOTE | 2017-09-15 14:14 | P.PN ---
Subjective Patient is seen in follow-up for acute kidney injury. Creatinine was 1.3 done admission and he's been receiving diuretics. Creatinine is up to 2.85 today. Case currently maintained on Lasix 40 mg IV once daily. He is also being treated for pneumonia. Oral intake is good. No vomiting or diarrhea. Denies cough. No edema. Vital signs are stable. General: The patient appeared well nourished and normally developed. HEENT: Head exam is unremarkable. Neck is without jugular venous distension. LUNGS: Lungs are clear to auscultation and percussion. Breath sounds decreased. HEART: Rate and Rhythm are regular. First and second heart sounds normal. No murmurs, rubs or gallops. ABDOMEN: Abdominal exam reveals normal bowel sounds. Non-tender and non- distended. No evidence of peritonitis. EXTREMITITES: No clubbing, cyanosis, or edema. Left BKA noted. Objective - Vital Signs Vital signs: Vital Signs Temp 98.3 F 09/15/17 05:38 Pulse 80 09/15/17 13:27 Resp 16 09/15/17 13:27 BP 147/64 09/15/17 05:38 Pulse Ox 95 09/15/17 07:28 Intake & Output 09/14/17 09/15/17 09/15/17 18:59 06:59 18:59 Intake Total 640 240 50 Output Total 520 1100 Balance 120 240 -1050 Weight 93 kg 93 kg Intake: Intake, IV Titration 50 Amount Piperacillin-Tazobactam 3 50 .375 gm In Dextrose/Water 1 50ml.bag @ 12.5 mls/hr IVPB Q8HR [facility] Rx#: [id number] Oral 640 240 Output: Urine 520 1100 Stool 0 0 Other: Voiding Method Urinal Urinal Urinal # Voids 0 2 2 # Bowel Movements 0 - Labs CBC & Chem 7: 09/15/17 07:27 09/15/17 07:27 Labs: Abnormal Lab Results - Last 24 Hours (Table) 09/14/17 09/14/17 09/15/17 Range/Units 16:57 20:28 07:24 WBC (3.8-10.6) k/uL RBC (4.30-5.90) m/uL Hgb (13.0-17.5) gm/dL Hct (39.0-53.0) % Neutrophils # (1.3-7.7) k/uL Sodium (137-145) mmol/L Chloride (98-107) mmol/L Carbon Dioxide (22-30) mmol/L BUN (9-20) mg/dL Creatinine (0.66-1.25) mg/dL Glucose (74-99) mg/dL POC Glucose (mg/dL) 188 H 273 H 167 H (75-99) mg/dL 09/15/17 09/15/17 09/15/17 Range/Units 07:27 07:27 13:02 WBC 11.2 H (3.8-10.6) k/uL RBC 4.00 L (4.30-5.90) m/uL Hgb 12.0 L (13.0-17.5) gm/dL Hct 37.5 L (39.0-53.0) % Neutrophils # 8.5 H (1.3-7.7) k/uL Sodium 135 L (137-145) mmol/L Chloride 93 L (98-107) mmol/L Carbon Dioxide 33 H (22-30) mmol/L BUN 72 H (9-20) mg/dL Creatinine 2.85 H (0.66-1.25) mg/dL Glucose 151 H (74-99) mg/dL POC Glucose (mg/dL) 191 H (75-99) mg/dL Assessment and Plan Plan: Assessment: 1. Nonoliguric acute kidney injury secondary to ATN secondary to diuresis. Creatinine of 2.85 today. UA quite benign. No hydronephrosis noted on renal ultrasound. Kidneys are quite small in size suggestive of underlying chronic kidney disease. 2. Chronic kidney disease stage III with baseline creatinine in the range of 1.5-2 secondary to nephrosis. 3. Diastolic CHF. Appears fairly compensated. 4. Pneumonia maintained on IV antibiotics. Sputum culture positive for Katharina albicans. 5. Insulin-dependent diabetes mellitus. 6. History of coronary artery disease. Plan: DC Lasix. Encouraged oral intake. Avoid nephrotoxic agents and hypotensive episodes. Repeat electrolytes in the morning.
--- NOTE | 2017-09-15 15:43 | XR ---
EXAMINATION TYPE: XR chest 2V DATE OF EXAM: 09/15/2017 COMPARISON: Chest x-ray from 3 days ago and older studies HISTORY: Pneumonia and CHF progress study. TECHNIQUE: Frontal and lateral views of the chest are obtained. 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 Right lung remains clear. Cardiac silhouette siz e is stable and within normal limits with atherosclerotic thoracic aorta. Osseous structures are inta ct. IMPRESSION: Persistent lateral left mid and basilar infiltrate and/or edema on background of parench ymal fibrosis. No significant change from most recent chest x-ray.
[2017-09-15 17:01] LABS: Glucose,Whole Blood 150 mg/dL (75-99)
[2017-09-15 20:08] LABS: Glucose,Whole Blood 276 mg/dL (75-99)
[2017-09-15] MEDS: INSULIN DETEMIR 100 UNIT/ML 10 ML VIAL SQ SCH (22:02)
[2017-09-15] MEDS: EZETIMIBE 10 MG TAB PO SCH (22:03)
[2017-09-15] MEDS: LORATADINE 10 MG TAB PO SCH (22:03)
[2017-09-15] MEDS: ATORVASTATIN 10 MG TAB PO SCH (22:04)
[2017-09-16] MEDS: ONDANSETRON 4 MG/2 ML VIAL IVP PRN (01:14)
[2017-09-16] MEDS: PIPERACILLIN-TAZOBACTAM 3.375 GM in DEXTROSE/WATER 1 50ML.BAG IVPB SCH ×3 (01:14→12:35)
[2017-09-16] MEDS: HYDROcodone/APAP 5-325MG 1 EACH TAB PO PRN ×4 (01:25→21:46)
[2017-09-16 07:10] LABS: Glucose,Whole Blood 174 mg/dL (75-99)
[2017-09-16 07:54] LABS: Basophils # (A) 0.1 k/uL (0-0.2); Basophils % (A) 1 %; Eosinophils # (A) 0.7 k/uL (0-0.7); Eosinophils % (A) 6 %; HGB 11.9 gm/dL (13.0-17.5); Lymphocytes # (A) 1.1 k/uL (1.0-4.8); Lymphocytes % (A) 9 %; MCHC 32.3 g/dL (31.0-37.0); Mean Platelet Volume 8.8; Monocytes # (A) 0.6 k/uL (0-1.0); Monocytes % (A) 5 %; Neutrophils # (A) 9.4 k/uL (1.3-7.7); Neutrophils % (A) 78 %; Platelet Count 293 k/uL (150-450); RBC 3.98 m/uL (4.30-5.90); RDW 13.3 % (11.5-15.5); WBC 12.1 k/uL (3.8-10.6)
[2017-09-16] MEDS: BUDESONIDE 1 MG/2 ML NEBU INHALATION SCH ×2 (08:19→19:28)
[2017-09-16] MEDS: IPRATROPIUM-ALBUTEROL 3 ML NEB INHALATION SCH ×4 (08:19→19:28)
[2017-09-16 08:25] LABS: Calcium 8.8 mg/dL (8.4-10.2); Potassium 4.8 mmol/L (3.5-5.1)
[2017-09-16] MEDS: INSULIN ASPART 100 UNIT/ML 1 ML 10 ML VIAL SQ SCH ×7 (08:35→21:44)
[2017-09-16] MEDS: ASPIRIN 81 MG PO SCH (08:36)
[2017-09-16] MEDS: guaiFENesin 600 MG TABLET.ER PO SCH ×2 (08:36→21:45)
[2017-09-16] MEDS: METOPROLOL TARTRATE 12.5 MG TAB PO SCH (08:36)
[2017-09-16] MEDS: CLOPIDOGREL 75 MG TAB PO SCH (08:36)
--- NOTE | 2017-09-16 11:33 | P.PN ---
Subjective Progress Note Date: 09/16/17 Principal diagnosis: Acute exacerbation diastolic CHF, pneumonia Acute on chronic renal failure stage III; ATN secondary to aggressive diuresis 87-year-old gentleman with a past medical history significant for coronary artery disease and status post coronary artery bypass grafting 4 in 2004, diabetes, hypertension, dyslipidemia, and status post left below the knee amputation, was also noncompliant, presented to the hospital complaining of shortness of breath. He was in his usual state of health until about 3 days ago when he started experiencing progressive dyspnea associated with cough productive of sputum. No fever or chills. No chest pain or chest discomfort, dizziness or lightheadedness, heart racing or fluttering, or syncope. The chest x-ray showed findings consistent with CHF. The BNP was checked and came in to be around 2000. 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 The last echocardiogram was performed in 2015 and revealed normal LV function. The cardiac enzymes were checked and came in to be unremarkable. Patient is breathing comfortably and maintaining oxygen saturation in high 90s on 3 L; his creatinine is up to 2.53; nephrology is consulted for further recommendations 09/15/2017 Patient is seen and evaluated in the room at bedside; patient is breathing more comfortably maintaining oxygen saturation in high 90s on 3 L; creatinine is trending up and is 2.53 today; nephrology is consulted; patient is with nonoliguric acute renal failure secondary to ATN due to diurese us; renal ultrasound is negative for hydronephrosis and does suggest underlying chronic kidney disease stage III; nephrology has discontinued Lasix and encouraging oral fluid intake; avoid nephrotoxins and hypotensive episodes; we will continue to follow renal function and electrolytes; Objective - Vital Signs Vital signs: Vital Signs Temp 97.8 F 09/16/17 05:54 Pulse 80 09/16/17 08:30 Resp 18 09/16/17 05:54 BP 131/60 09/16/17 05:54 Pulse Ox 91 L 09/16/17 05:54 Intake & Output 09/15/17 09/16/17 09/16/17 18:59 06:59 18:59 Intake Total 1100 600 Output Total 1900 650 Balance -800 -50 Weight 93 kg 92.5 kg Intake: Intake, IV Titration 100 50 Amount Piperacillin-Tazobactam 3 50 50 .375 gm In Dextrose/Water 1 50ml.bag @ 12.5 mls/hr IVPB Q12H [facility] Rx#: [id number] Piperacillin-Tazobactam 3 50 .375 gm In Dextrose/Water 1 50ml.bag @ 12.5 mls/hr IVPB Q8HR [facility] Rx#: [id number] Oral 1000 550 Output: Urine 1900 650 Stool 0 Other: Voiding Method Urinal Urinal # Voids 3 # Bowel Movements 3 - Exam - Constitutional General appearance: Present: average body habitus, cooperative, no acute distress - EENT Eyes: Present: anicteric sclerae, EOMI, PERRLA, normal appearance ENT: Present: hearing grossly normal, normal oropharynx Ears: bilateral: normal - Neck Neck: Present: normal ROM. Absent: lymphadenopathy Carotids: negative: bruit present Thyroid: bilateral: normal size, negative: enlarged, nodule - Respiratory Respiratory: bilateral: CTA, negative: rales, rhonchi, wheezing - Cardiovascular Rhythm: regular Heart sounds: normal: S1, S2 Abnormal Heart Sounds: Absent: systolic murmur, diastolic murmur - Gastrointestinal General gastrointestinal: Present: normal bowel sounds, soft. Absent: distended , organomegaly, tenderness - Genitourinary Genitourinary Comment(s): deferred - Integumentary Integumentary: Present: normal turgor. Absent: jaundiced, rash, ulcer - Neurologic Neurologic: Present: CNII-XII intact. Absent: focal deficits - Musculoskeletal Musculoskeletal: Present: gait normal, strength equal bilaterally - Psychiatric Psychiatric: Present: A&O x's 3, appropriate affect, intact judgment & insight - Labs CBC & Chem 7: 09/16/17 07:05 09/16/17 07:05 Labs: Abnormal Lab Results - Last 24 Hours (Table) 09/15/17 09/15/17 09/15/17 Range/Units 13:02 16:59 20:06 WBC (3.8-10.6) k/uL RBC (4.30-5.90) m/uL Hgb (13.0-17.5) gm/dL Hct (39.0-53.0) % Neutrophils # (1.3-7.7) k/uL Sodium (137-145) mmol/L Chloride (98-107) mmol/L Carbon Dioxide (22-30) mmol/L BUN (9-20) mg/dL Creatinine (0.66-1.25) mg/dL Glucose (74-99) mg/dL POC Glucose (mg/dL) 191 H 150 H 276 H (75-99) mg/dL 09/16/17 09/16/17 09/16/17 Range/Units 07:05 07:05 07:09 WBC 12.1 H (3.8-10.6) k/uL RBC 3.98 L (4.30-5.90) m/uL Hgb 11.9 L (13.0-17.5) gm/dL Hct 37.0 L (39.0-53.0) % Neutrophils # 9.4 H (1.3-7.7) k/uL Sodium 134 L (137-145) mmol/L Chloride 94 L (98-107) mmol/L Carbon Dioxide 31 H (22-30) mmol/L BUN 69 H (9-20) mg/dL Creatinine 2.60 H (0.66-1.25) mg/dL Glucose 161 H (74-99) mg/dL POC Glucose (mg/dL) 174 H (75-99) mg/dL Assessment and Plan Assessment: 1 acute hypoxic respiratory failure with a suspected left lung pneumonia as evident on chest x-ray from this current admission. Suspect bacterial pneumonia of the left lung sputum culture reveals Katharina. Blood cultures negative. - Pulmonary recommending to complete an course of antibiotics; continue with current treatment plan - Chest x-ray is repeated which remains unchanged from previous study 2 acute exacerbation of diastolic congestive heart failure. - Patient was started on IV Lasix on 09/13/2018; no success discontinued by nephrology - Cardiology is recommending to continue Lasix for another 24 hours. - Continue to monitor strict MARY's, renal function and electrolytes 3 coronary artery disease with previous bypass surgery currently free of any angina 4 diabetes mellitus; blood sugars are ranging between 188-273 - We will continue with current treatment plan and continue to monitor Accu- Cheks with insulin sliding scale 5 stage III chronic kidney failure; - Creatinine is at 2.53; nephrology is consulted for further recommendations; Lasix is discontinued and patient is to increase oral fluid intake 6 hypertension; fairly controlled on current medication 7 hyperlipidemia; continue to use home dose of atorvastatin 10 mg by mouth daily at bedtime along with study a 10 mg by mouth daily at bedtime 8 peripheral vascular disease with 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
--- NOTE | 2017-09-16 11:36 | P.PN ---
Subjective Progress Note Date: 09/15/17 Principal diagnosis: Acute exacerbation diastolic CHF, pneumonia 87-year-old gentleman with a past medical history significant for coronary artery disease and status post coronary artery bypass grafting 4 in 2004, diabetes, hypertension, dyslipidemia, and status post left below the knee amputation, was also noncompliant, presented to the hospital complaining of shortness of breath. He was in his usual state of health until about 3 days ago when he started experiencing progressive dyspnea associated with cough productive of sputum. No fever or chills. No chest pain or chest discomfort, dizziness or lightheadedness, heart racing or fluttering, or syncope. The chest x-ray showed findings consistent with CHF. The BNP was checked and came in to be around 2000. 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 The last echocardiogram was performed in 2015 and revealed normal LV function. The cardiac enzymes were checked and came in to be unremarkable. Patient is breathing comfortably and maintaining oxygen saturation in high 90s on 3 L; his creatinine is up to 2.53; nephrology is consulted for further recommendations 09/15/2017 Patient is seen and evaluated in the room at bedside; patient is breathing more comfortably maintaining oxygen saturation in high 90s on 3 L; creatinine is trending up and is 2.53 today; nephrology is consulted; patient is with nonoliguric acute renal failure secondary to ATN due to diurese us; renal ultrasound is negative for hydronephrosis and does suggest underlying chronic kidney disease stage III; nephrology has discontinued Lasix and encouraging oral fluid intake; avoid nephrotoxins and hypotensive episodes; we will continue to follow renal function and electrolytes; Objective - Vital Signs Vital signs: Vital Signs Temp 98.3 F 09/15/17 05:38 Pulse 86 09/15/17 11:20 Resp 16 09/15/17 05:38 BP 147/64 09/15/17 05:38 Pulse Ox 95 09/15/17 07:28 Intake & Output 09/14/17 09/15/17 09/15/17 18:59 06:59 18:59 Intake Total 640 240 Output Total 520 Balance 120 240 Weight 93 kg Intake: Oral 640 240 Output: Urine 520 Stool 0 Other: Voiding Method Urinal Urinal # Voids 0 2 # Bowel Movements 0 - Exam - Constitutional General appearance: Present: average body habitus, cooperative, no acute distress - EENT Eyes: Present: anicteric sclerae, EOMI, PERRLA, normal appearance ENT: Present: hearing grossly normal, normal oropharynx Ears: bilateral: normal - Neck Neck: Present: normal ROM. Absent: lymphadenopathy, rigidity, thyromegaly Carotids: negative: bruit present Thyroid: bilateral: normal size, negative: enlarged, nodule - Respiratory Respiratory: bilateral: CTA, negative: rales, rhonchi, wheezing - Cardiovascular Rhythm: regular Heart sounds: normal: S1, S2 Abnormal Heart Sounds: Absent: systolic murmur, diastolic murmur - Gastrointestinal General gastrointestinal: Present: normal bowel sounds, soft. Absent: distended , organomegaly, tenderness - Genitourinary Genitourinary Comment(s): deferred - Integumentary Integumentary: Present: normal turgor. Absent: jaundiced, rash, ulcer - Neurologic Neurologic: Present: CNII-XII intact. Absent: focal deficits - Musculoskeletal Musculoskeletal: Present: gait normal, strength equal bilaterally - Psychiatric Psychiatric: Present: A&O x's 3, appropriate affect, intact judgment & insight - Labs CBC & Chem 7: 09/16/17 07:05 09/16/17 07:05 Labs: Abnormal Lab Results - Last 24 Hours (Table) 09/14/17 09/14/17 09/14/17 Range/Units 13:00 16:57 20:28 WBC (3.8-10.6) k/uL RBC (4.30-5.90) m/uL Hgb (13.0-17.5) gm/dL Hct (39.0-53.0) % Neutrophils # (1.3-7.7) k/uL Sodium (137-145) mmol/L Chloride (98-107) mmol/L Carbon Dioxide (22-30) mmol/L BUN (9-20) mg/dL Creatinine (0.66-1.25) mg/dL Glucose (74-99) mg/dL POC Glucose (mg/dL) 188 H 273 H (75-99) mg/dL Urine Protein Trace H (Negative) Urine Blood Trace H (Negative) Urine Mucus Rare H (None) /hpf 09/15/17 09/15/17 09/15/17 Range/Units 07:24 07:27 07:27 WBC 11.2 H (3.8-10.6) k/uL RBC 4.00 L (4.30-5.90) m/uL Hgb 12.0 L (13.0-17.5) gm/dL Hct 37.5 L (39.0-53.0) % Neutrophils # 8.5 H (1.3-7.7) k/uL Sodium 135 L (137-145) mmol/L Chloride 93 L (98-107) mmol/L Carbon Dioxide 33 H (22-30) mmol/L BUN 72 H (9-20) mg/dL Creatinine 2.85 H (0.66-1.25) mg/dL Glucose 151 H (74-99) mg/dL POC Glucose (mg/dL) 167 H (75-99) mg/dL Urine Protein (Negative) Urine Blood (Negative) Urine Mucus (None) /hpf Assessment and Plan Assessment: 1 acute hypoxic respiratory failure with a suspected left lung pneumonia as evident on chest x-ray from this current admission. Suspect bacterial pneumonia of the left lung sputum culture reveals Katharina. Blood cultures negative. - Pulmonary recommending to complete an course of antibiotics; continue with current treatment plan 2 acute exacerbation of diastolic congestive heart failure. - Patient was started on IV Lasix on 09/13/2018; patient is showing clinical improvement - Cardiology is recommending to continue Lasix for another 24 hours. - Continue to monitor strict MARY's, renal function and electrolytes 3 coronary artery disease with previous bypass surgery currently free of any angina 4 diabetes mellitus; blood sugars are ranging between 188-273 - We will continue with current treatment plan and continue to monitor Accu- Cheks with insulin sliding scale 5 stage III chronic kidney failure; - Creatinine is at 2.53; nephrology is consulted for further recommendations 6 hypertension; fairly controlled on current medication 7 hyperlipidemia; continue to use home dose of atorvastatin 10 mg by mouth daily at bedtime along with study a 10 mg by mouth daily at bedtime 8 peripheral vascular disease with below-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
[2017-09-16 11:43] LABS: Glucose,Whole Blood 145 mg/dL (75-99)
[2017-09-16 16:26] LABS: Glucose,Whole Blood 185 mg/dL (75-99)
--- NOTE | 2017-09-16 17:03 | PN ---
PROGRESS NOTE Patient is followup for acute kidney injury. He is currently maintained on IV antibiotics for pneumonia. The patient was on IV diuretics, which are now on hold. A creatinine is 2.6 from 2.8 yesterday. PHYSICAL EXAMINATION: Blood pressure is 118/56, heart rate 78 per minute. He is afebrile. Examination of the heart S1, S2. Examination of the lungs bilateral breath sounds are heard. Abdomen is soft, nontender. Examination of the lower extremities shows trace edema bilaterally. BOOK AUTHOR exam is grossly intact. LAB: Shows sodium 134, potassium 4.8, chloride 94, BUN 69, serum creatinine 2.6, hemoglobin 11.9 g/dL. ASSESSMENT: 1. Acute kidney injury associated with recent diuresis and with pneumonia, currently improved from yesterday. Continue off of diuretics for now. 2. Chronic kidney disease stage 3 secondary to nephrosclerosis with baseline creatinine 1.5-2. Kidneys are small in size on ultrasound. The UA shows trace protein and trace blood. 3. Diastolic heart failure, currently compensated. 4. Pneumonia with sputum culture positive for Katharina. Currently maintained on IV antibiotics. PLAN: Repeat labs in a.m. Encourage increased oral intake. MMODL / IJN: [id number] /
[2017-09-16 20:18] LABS: Glucose,Whole Blood 218 mg/dL (75-99)
[2017-09-16] MEDS: LORATADINE 10 MG TAB PO SCH (21:45)
[2017-09-16] MEDS: EZETIMIBE 10 MG TAB PO SCH (21:45)
[2017-09-16] MEDS: INSULIN DETEMIR 100 UNIT/ML 10 ML VIAL SQ SCH (21:46)
[2017-09-16] MEDS: LACTULOSE 20 GM/30 ML CUP PO PRN (21:54)
[2017-09-17] MEDS: PIPERACILLIN-TAZOBACTAM 3.375 GM in DEXTROSE/WATER 1 50ML.BAG IVPB SCH ×2 (00:26→11:50)
[2017-09-17] MEDS: ATORVASTATIN 10 MG TAB PO SCH ×2 (00:27→21:14)
[2017-09-17] MEDS: IPRATROPIUM-ALBUTEROL 3 ML NEB INHALATION SCH ×4 (07:03→20:07)
[2017-09-17] MEDS: BUDESONIDE 1 MG/2 ML NEBU INHALATION SCH ×2 (07:03→20:06)
[2017-09-17 07:16] LABS: Glucose,Whole Blood 134 mg/dL (75-99)
[2017-09-17 07:57] LABS: Basophils # (A) 0.1 k/uL (0-0.2); Basophils % (A) 1 %; Eosinophils # (A) 0.6 k/uL (0-0.7); Eosinophils % (A) 5 %; HCT 36.2 % (39.0-53.0); HGB 11.9 gm/dL (13.0-17.5); Lymphocytes # (A) 1.5 k/uL (1.0-4.8); Lymphocytes % (A) 13 %; MCH 30.7 pg (25.0-35.0); MCV 93.2 fL (80.0-100.0); Mean Platelet Volume 9.4; Monocytes # (A) 0.6 k/uL (0-1.0); Monocytes % (A) 5 %; Neutrophils # (A) 8.7 k/uL (1.3-7.7); Neutrophils % (A) 76 %; Platelet Count 295 k/uL (150-450); RBC 3.88 m/uL (4.30-5.90); RDW 13.4 % (11.5-15.5); WBC 11.5 k/uL (3.8-10.6)
[2017-09-17] MEDS: INSULIN ASPART 100 UNIT/ML 1 ML 10 ML VIAL SQ SCH ×7 (08:12→21:13)
[2017-09-17] MEDS: CLOPIDOGREL 75 MG TAB PO SCH (08:14)
[2017-09-17] MEDS: METOPROLOL TARTRATE 12.5 MG TAB PO SCH (08:14)
[2017-09-17] MEDS: ASPIRIN 81 MG PO SCH (08:14)
[2017-09-17] MEDS: guaiFENesin 600 MG TABLET.ER PO SCH ×2 (08:14→21:12)
[2017-09-17 08:18] LABS: Calcium 8.8 mg/dL (8.4-10.2); Potassium 4.9 mmol/L (3.5-5.1)
[2017-09-17] MEDS: FAMOTIDINE 20 MG TAB PO SCH (09:35)
[2017-09-17 11:35] LABS: Glucose,Whole Blood 203 mg/dL (75-99)
[2017-09-17] MEDS: HYDROcodone/APAP 5-325MG 1 EACH TAB PO PRN ×2 (12:17→21:13)
[2017-09-17 16:38] LABS: Glucose,Whole Blood 253 mg/dL (75-99)
[2017-09-17 20:11] LABS: Glucose,Whole Blood 258 mg/dL (75-99)
[2017-09-17] MEDS: EZETIMIBE 10 MG TAB PO SCH (21:12)
[2017-09-17] MEDS: LORATADINE 10 MG TAB PO SCH (21:12)
[2017-09-17] MEDS: INSULIN DETEMIR 100 UNIT/ML 10 ML VIAL SQ SCH (21:14)
--- NOTE | 2017-09-17 21:57 | PN ---
PROGRESS NOTE . DATE OF SERVICE: 09/18/2007 HISTORY OF PRESENT ILLNESS: This 87 -year-old gentleman admitted with features of CHF and renal failure also symptomatic. The patient improved significantly. Chest x-ray done on 09/15 which was reviewed personally by me showed evidence of improvement. Still has some lesions on the left side. No chest pain. No palpitations. No fever. Occasional cough is reported. EXAM: Alert and oriented x3. Pulse is 73, blood pressure 129/59, respiration 15, temperature 97.2, pulse ox 98% on room air. HEENT: Conjunctivae normal. Neck : No jugular venous distention. Cardiovascular: S1, S2 muffled. Respirations: Breath sounds diminished in the bases. A few scattered rhonchi and no crackles. Abdomen is soft, nontender. Legs are no edema. No swelling. Nervous system: No focal deficits. LAB STUDIES: WBC 7.9, hemoglobin 11.7, sodium 134, creatinine 1.35. ASSESSMENT: 1. Bilateral pneumonia, left more than right with possibly gram-negative present on admission. 2. Congestive heart failure acute exacerbation with acute on chronic diastolic dysfunction EF 50-55%. 3. Acute renal failure possibly prerenal acute tubular necrosis. 4. Paroxysmal atrial fibrillation. 5. Coronary artery disease, coronary artery bypass grafting. 6. Diabetes type 2. 7. Hypertension. 8. Degenerative joint disease. 9. Left below-knee amputation. 10.Chronic obstructive pulmonary disease acute exacerbation. 11.Chronic medical debility. 12.Gait dysfunction. 13.Chronic kidney disease stage 2. 14.NO CODE, NO CPR, NO VENT. RECOMMENDATIONS AND DISCUSSION: I recommend to continue current medications, management and symptomatic treatment. Continue with antibiotics. Continue the rest of medications. PT/OT evaluation. Plan will be possible home with home care according the patient. Further recommendations to follow. MMODL / IJN: [id number] / [facility] SYSTEMSheryl
[2017-09-18] MEDS: PIPERACILLIN-TAZOBACTAM 3.375 GM in DEXTROSE/WATER 1 50ML.BAG IVPB SCH ×2 (00:41→11:47)
[2017-09-18 06:46] LABS: Glucose,Whole Blood 167 mg/dL (75-99)
--- NOTE | 2017-09-18 06:58 | PN ---
PROGRESS NOTE Patient is seen for followup for acute kidney injury. His renal function has been continuously improving. Serum creatinine is down to 2.35 today from a peak of 2.8. PHYSICAL EXAMINATION: On examination, the blood pressure is 125/59 this morning. Heart rate 85 per minute. Patient is afebrile. EXAMINATION OF THE HEART: S1, S2. EXAMINATION OF THE LUNGS: Bilateral breath sounds are heard. Abdomen is soft, nontender. Examination of the lower extremities shows no significant edema. DATABASE ENGINEER exam is grossly intact. LABS: Labs show sodium 134, potassium 4.9, BUN 64, serum creatinine 2.35, hemoglobin 11.9 g/dL. ASSESSMENT: 1. Acute kidney injury associated with recent diureses and pneumonia, currently improving. 2. Chronic kidney disease stage III secondary to nephrosclerosis. Baseline creatinine 1.5 to 2 mg/dL. 3. Diastolic heart failure, currently compensated. 4. Pneumonia, maintained on antibiotics. PLAN: Continue to avoid nephrotoxic agents. The patient will need followup as outpatient. MMODL / IJN: [id number] /
[2017-09-18] MEDS: INSULIN ASPART 100 UNIT/ML 1 ML 10 ML VIAL SQ SCH ×4 (07:32→12:48)
[2017-09-18] MEDS: FAMOTIDINE 20 MG TAB PO SCH (07:33)
[2017-09-18] MEDS: guaiFENesin 600 MG TABLET.ER PO SCH (07:33)
[2017-09-18] MEDS: ASPIRIN 81 MG PO SCH (07:33)
[2017-09-18] MEDS: CLOPIDOGREL 75 MG TAB PO SCH (07:34)
[2017-09-18] MEDS: HYDROcodone/APAP 5-325MG 1 EACH TAB PO PRN (07:38)
[2017-09-18] MEDS: METOPROLOL TARTRATE 12.5 MG TAB PO SCH (07:42)
--- NOTE | 2017-09-18 09:01 | XR ---
EXAMINATION TYPE: XR chest 1V portable DATE OF EXAM: 09/18/2017 COMPARISON: 09/15/2017 HISTORY: Shortness of breath TECHNIQUE: Single frontal view of the chest is obtained. FINDINGS: Postoperative change and cardiomegaly seen in the left lower lobe and upper lobe. Right-si ded pleural effusion or thickening stable. Underlying COPD suspected. Hypertrophic and degenerative c hange of the spine. Arthropathy shoulders. IMPRESSION: 1. Pleural-parenchymal changes are stable. 2. correlate for COPD
[2017-09-18] MEDS: BUDESONIDE 1 MG/2 ML NEBU INHALATION SCH (09:14)
[2017-09-18] MEDS: IPRATROPIUM-ALBUTEROL 3 ML NEB INHALATION SCH ×3 (09:14→17:20)
[2017-09-18 10:11] VITALS: BMI 29.2
--- NOTE | 2017-09-18 10:43 | P.PN ---
Subjective Patient is seen in follow-up for acute kidney injury. Creatinine was 1.3 this admission and he was receiving diuretics. Creatinine peaked at 2.85 this admission and was down to 2.35 yesterday. Diuretics are currently held. He is also being treated for pneumonia. Oral intake is good. No vomiting or diarrhea. Denies cough. No edema. Vital signs are stable. General: The patient appeared well nourished and normally developed. HEENT: Head exam is unremarkable. Neck is without jugular venous distension. LUNGS: Lungs are clear to auscultation and percussion. Breath sounds decreased. HEART: Rate and Rhythm are regular. First and second heart sounds normal. No murmurs, rubs or gallops. ABDOMEN: Abdominal exam reveals normal bowel sounds. Non-tender and non- distended. No evidence of peritonitis. EXTREMITITES: No clubbing, cyanosis, or edema. Left BKA noted. Objective - Vital Signs Vital signs: Vital Signs Temp 96.7 F L 09/18/17 05:56 Pulse 82 09/18/17 09:30 Resp 16 09/18/17 05:56 BP 134/66 09/18/17 05:56 Pulse Ox 98 09/18/17 05:56 Intake & Output 09/17/17 09/18/17 09/18/17 18:59 06:59 18:59 Intake Total 1050 1140 Output Total 750 530 Balance 300 610 Weight 92 kg 92.3 kg 92.3 kg Intake: Intake, IV Titration 100 Amount Piperacillin-Tazobactam 3 100 .375 gm In Dextrose/Water 1 50ml.bag @ 12.5 mls/hr IVPB Q12H [facility] Rx#: [id number] Oral 950 1140 Output: Urine 750 530 Stool 0 Other: Voiding Method Urinal Urinal # Voids 3 # Bowel Movements 0 - Labs CBC & Chem 7: 09/17/17 07:26 09/17/17 07:26 Labs: Abnormal Lab Results - Last 24 Hours (Table) 09/17/17 09/17/17 09/17/17 Range/Units 11:33 16:37 20:10 POC Glucose (mg/dL) 203 H 253 H 258 H (75-99) mg/dL 09/18/17 Range/Units 06:44 POC Glucose (mg/dL) 167 H (75-99) mg/dL Assessment and Plan Plan: Assessment: 1. Nonoliguric acute kidney injury secondary to ATN secondary to diuresis. Creatinine peaked at 2.85 this admission and was down to 2.35 yesterday. UA quite benign. No hydronephrosis noted on renal ultrasound. Kidneys are quite small in size suggestive of underlying chronic kidney disease. 2. Chronic kidney disease stage III with baseline creatinine in the range of 1.5-2 secondary to nephrosis. 3. Diastolic CHF. Appears fairly compensated. 4. Pneumonia maintained on IV antibiotics. Sputum culture positive for Katharina albicans. 5. Insulin-dependent diabetes mellitus. 6. History of coronary artery disease. Plan: Continue to hold diuretics. Encouraged oral intake. Avoid nephrotoxic agents and hypotensive episodes. Repeat electrolytes in the morning.
[2017-09-18 11:31] LABS: Glucose,Whole Blood 131 mg/dL (75-99)
--- NOTE | 2017-09-18 11:37 | CT ---
EXAMINATION TYPE: CT chest wo con DATE OF EXAM: 09/18/2017 COMPARISON: 12/31/2010 HISTORY: Shortness of breath and cough CT DLP: 423.1 mGycm, Automated exposure control for dose reduction was used. CONTRAST: None TECHNIQUE: Axial images were obtained at 5 mm thick sections. Reconstructed images are reviewed on [employer] computer in the coronal plane. FINDINGS: Portion of the thyroid visualized is normal. Note is made of coronary artery calcification. There is interval development of an infiltrate within the periphery of the left upper lobe centered s eries 4 image 17. Pneumonia or an infectious etiology can be considered. Neoplastic process is not ex cluded. This should be followed to clearing. There is some additional areas of pneumonitis change suc h as the anterior right middle lobe, series 4 image 29. Densities within the posterior lateral left l chip base. Example images series 4 image 33. Some underlying pulmonary fibrosis is also likely present . Minimal left pleural effusion is present. Some stable scarring is in the superior medial left apex. E mphysematous changes are present within the bilateral lungs. No enlarged mediastinal or hilar adenopathy is evident. The ascending aorta diameter at the level o f the main pulmonary artery is 3.1 cm. The main pulmonary artery diameter at the bifurcation is 2.[address] sections are obtained through the upper abdomen. Abdomen is essentially unremarkable. IMPRESSIONS: 1. Interval development of irregular areas of increased density which can be related to an infectious etiology. Neoplasm is not excluded. This should be followed to clearing. 2. Small left pleural effusion. 3. Interval development of pulmonary fibrosis type changes.
--- NOTE | 2017-09-18 12:01 | CDI ---
Last Revision, January 2017 Documentation Clarification Form Date: 09/18/17 1157 From: Mary Dill RN, CCDS Admit Date: 09/06/2017 1:37:00 PM Patient Name: Darshan Wilson Visit Number: [id number] ATTENTION: The Clinical Documentation Specialists (CDI) and [facility] Coding Staff appreciate your assistance in clarifying documentation. Please respond to the clarification below the line at the bottom and electronically sign. The CDI & [facility] Coding staff will review the response and follow-up if needed. Please note: Queries are made part of the Legal Health Record. If you have any questions, please contact the author of this message via ITS. Dr. Mg Edmond declining Hemoglobin and Hematocrit have been noted with daily monitoring and lacks specificity to accurately reflect your patients severity of condition and clarification is needed. History/Risk Factors: JACQUIE w/ ATN w/ Hx of CKD stage 3, A/C Diastolic CHF, Gram negative Pneumonia, Paroxysmal Atrial Fib Clinical indicators: Hemoglobin: 12.7/11.4/11.7/12/11.9/11.9 Hematocrit: 38.1/36.1/37.2/35.9/37/36.2 Treatment: Monitoring Daily Labs In order to capture the severity of condition, please clarify the diagnosis associated with the abnormal lab values and etiology if known: Chronic blood loss anemia Iron deficiency anemia Nutritional anemia Anemia of chronic kidney disease Unable to determine Other, please specify Please continue to document in your progress notes and discharge summary in order to capture severity of illness and risk of mortality. Include clinical findings that support your diagnosis. possibly anemia of chronic kidney disease MTDD
[2017-09-18 14:45] VITALS: BP 120/56; PULSE 74; RESP 20; TEMP 97.8
--- NOTE | 2017-09-19 05:50 | DS ---
DISCHARGE SUMMARY DATE OF SERVICE: 09/18/2017 FINAL DIAGNOSES: 1. Bilateral pneumonia, left more than right with possibly gram-negative present on admission. 2. Congestive heart failure acute exacerbation with acute on chronic diastolic dysfunction, ejection fraction 50% to 55%. 3. Acute renal failure possibly prerenal acute tubular necrosis. 4. Underlying chronic kidney disease stage 2, possibly. 5. Paroxysmal atrial fibrillation. 6. Coronary artery disease, coronary artery bypass grafting history. 7. Diabetes mellitus type 2. 8. Hypertension. 9. Degenerative joint disease. 10.History of left below-knee amputation. 11.History of chronic obstructive pulmonary disease exacerbation. 12.Chronic medical debility. 13.Gait dysfunction. 14.NO CODE, NO CPR, NO VENT. DISCHARGE DISPOSITION: The patient will be discharged in stable condition with guarded prognosis. HISTORY OF PRESENT ILLNESS: This 87-year-old gentleman with a past medical history of multiple medical problems including CHF, pneumonia, and as well as renal failure, treated in conjunction with IV antibiotics and multiple medications. Patient was closely monitored with multiple consultations including Cardiology, Pulmonology, Nephrology. Patient improved significantly. The possibility of ECF rehab was also recommended, but however the patient at this time would really like to recommend to return home. A CAT scan has been done showed evidence of possibly pneumonia, but however follow up in the outpatient setting is suggested. On exam, vital signs are stable. CARDIOVASCULAR: S1 and S2 muffled. ABDOMEN: Soft. RESPIRATORY: Few rhonchi. DISCHARGE ADVICE: 1. Diet is cardiac. 2. Activity limited until followup. 3. Follow up with Dr. Prashanth Pope in 2 to [address] days. 4[address] Follow up [address]. Porter as advised. 5. Follow up with Cardiology as recommended. MEDICATIONS: 1. Valium 5 mg p.o. daily. 2. Vytorin 1 tablet at bedtime. 3. Mercedez 60 mg p.o. b.i.d. 4. Fluticasone 2 sprays daily. 5. Hydrocodone q.i.d. 6. NovoLog scale as before. 7. Tylenol 650 q.6 p.r.n. 8. Augmentin 875 mg p.o. b.i.d. for 1 week. 9. Aspirin 81 mg p.o. daily. 10.Plavix 75 mg p.o. daily. 11.Pepcid 20 mg p.o. daily. 12.Mucinex 1200 mg p.o. . 13.Lantus 16 units subcutaneous at bedtime. 14.DuoNeb q.i.d. and p.r.n. 15.Cephulac 20 p.r.n. 16.Lopressor 12.5 mg p.o. daily. 17.Nitrostat 0.4 sublingual p.r.n. Once again the patient will be discharged in stable condition with guarded prognosis. MMODL / IJN: [id number] / MTDD
== END 2017-09-18 17:25 | disposition home health service (06) | DRG 177 ==
LOC: EC 10:11 → 6SEL 13:37 → 5MS5E 09-14 19:25
PROVIDERS: ADMIT Hospitalist; ATTEND Hospitalist
DX: J15.6 Pneumonia due to other Gram-negative bacteria (principal); B37.1 Pulmonary candidiasis; I50.33 Acute on chronic diastolic (congestive) heart failure; J96.01 Acute respiratory failure with hypoxia; N17.0 Acute kidney failure with tubular necrosis; I13.0 Hypertensive heart and chronic kidney disease with heart failure and stage 1 through stage 4 chronic kidney disease, or unspecified chronic kidney disease; I45.2 Bifascicular block; J43.9 Emphysema, unspecified; E11.22 Type 2 diabetes mellitus with diabetic chronic kidney disease; E11.42 Type 2 diabetes mellitus with diabetic polyneuropathy; E11.51 Type 2 diabetes mellitus with diabetic peripheral angiopathy without gangrene; I48.0 Paroxysmal atrial fibrillation; N18.3 Chronic kidney disease, stage 3 (moderate); E78.5 Hyperlipidemia, unspecified; I25.10 Atherosclerotic heart disease of native coronary artery without angina pectoris; M13.0 Polyarthritis, unspecified; T50.2X5A Adverse effect of carbonic-anhydrase inhibitors, benzothiadiazides and other diuretics, initial encounter; F41.9 Anxiety disorder, unspecified; H26.9 Unspecified cataract; R26.9 Unspecified abnormalities of gait and mobility; E04.1 Nontoxic single thyroid nodule; K57.90 Diverticulosis of intestine, part unspecified, without perforation or abscess without bleeding; Z66 Do not resuscitate; Z99.3 Dependence on wheelchair; Z79.02 Long term (current) use of antithrombotics/antiplatelets; Z79.4 Long term (current) use of insulin; Z79.82 Long term (current) use of aspirin; Z79.899 Other long term (current) drug therapy; Z95.1 Presence of aortocoronary bypass graft; Z89.512 Acquired absence of left leg below knee; Z87.891 Personal history of nicotine dependence; Z87.440 Personal history of urinary (tract) infections; Z82.3 Family history of stroke; Z80.9 Family history of malignant neoplasm, unspecified; Z81.1 Family history of alcohol abuse and dependence
CPT/HCPCS: 36415; 71045; 71046; 71250; 76770; 80048; 80053; 80061; 81001; 82550; 82553; 83036; 83605; 83735; 83880; 84484; 85025; 85610; 85730; 87040; 87070; 87205; 93306; 94640; 94668; 94760; 96374; 96375; 99285

== ENCOUNTER 2017-10-25 10:26 | Inpatient (IN) | payer MEDICARE, OTHER ==
[2017-10-25] MEDS ORDERED: SODIUM CHLORIDE 0.9% 1,000 ML IV STA (11:14)
[2017-10-25] MEDS ORDERED: MORPHINE SULFATE 4 MG/ML SYRINGE IV STA (11:14)
[2017-10-25] MEDS ORDERED: ONDANSETRON 4 MG/2 ML VIAL IVP STA (11:14)
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
[2017-10-25 11:48] LABS: Basophils # (A) 0.1 k/uL (0-0.2); Basophils % (A) 0 %; Eosinophils # (A) 0.1 k/uL (0-0.7); Eosinophils % (A) 0 %; HCT 43.7 % (39.0-53.0); Lymphocytes # (A) 0.9 k/uL (1.0-4.8); Lymphocytes % (A) 5 %; MCH 31.1 pg (25.0-35.0); MCV 97.2 fL (80.0-100.0); Mean Platelet Volume 8.9; Monocytes # (A) 0.9 k/uL (0-1.0); Monocytes % (A) 5 %; Neutrophils # (A) 17.1 k/uL (1.3-7.7); Neutrophils % (A) 89 %; Platelet Count 259 k/uL (150-450); RBC 4.49 m/uL (4.30-5.90); RDW 14.1 % (11.5-15.5); WBC 19.1 k/uL (3.8-10.6)
[2017-10-25 11:57] LABS: Albumin 3.4 g/dL (3.5-5.0); Calcium 8.9 mg/dL (8.4-10.2); Total Bilirubin 0.9 mg/dL (0.2-1.3); Total Protein 6.1 g/dL (6.3-8.2)
--- NOTE | 2017-10-25 12:22 | XR ---
Abdomen HISTORY: Lower abdomen pain and constipation Frontal view of the abdomen and 2 images Correlation to prior exam from 02/12/2014 Patient is post sternotomy. Stable findings of the lung bases. There are air-fluid levels present wit hout bowel distention. Hypertrophic changes are present in the spine. Vascular calcification within t he pelvis. IMPRESSION: Correlate for ileus or enteritis, follow-up as indicated.
--- NOTE | 2017-10-25 12:49 | CT ---
EXAMINATION TYPE: CT abdomen pelvis wo con DATE OF EXAM: 10/25/2017 COMPARISON: 02/12/2014 HISTORY: Generalized abdominal pain. CT DLP: 1038 mGycm Examination of the solid and hollow viscera is limited given the lack of contrast. FINDINGS: LUNG BASES: Basilar subpleural fibrosis with left basilar pleural thickening. No evidence for nodule. No evidence for infiltrate. LIVER/GB: The gallbladder is unremarkable. No space-occupying hepatic lesion. PANCREAS: No pancreatic mass identified. No inflammatory process seen. SPLEEN: No evidence for splenomegaly. No intrasplenic lesions seen. ADRENALS: No adrenal nodules identified. No evidence for thickening. KIDNEYS: No evidence for renal mass. No nephrolithiasis. No hydronephrosis. BOWEL: There is wall thickening with perisigmoid inflammatory change compatible with diverticulitis. Intramural abscess measures 3.9 cm. Small contained perforation noted. The remainder of the colon and small bowel are unremarkable. Normal-appearing appendix. Lymph nodes: No evidence for adenopathy gre ater than 1 cm. Abdominal aorta: Atheromatous changes seen. No evidence for aneurysm. Genital organs: No significant abnormality. Other: Severe degenerative change lumbar spine. IMPRESSION: 1. Acute sigmoid diverticulitis with intramural abscess and small contained perforation.
[2017-10-25 13:05] LABS: Appearance,Urine Clear (Clear); Bacteria,Urine Rare /hpf; Bilirubin,Urine Negative (Negative); Blood,Urine Negative (Negative); Color,Urine Yellow; Glucose,Urine (UA) Negative (Negative); Hyaline Casts,Urine 3 /lpf (0-2); Ketones,Urine Negative (Negative); Leukocyte Esterase,Urine Negative (Negative); Mucus,Urine Rare /hpf; Nitrite,Urine Negative (Negative); PH, Urine 5.5 (5.0-8.0); Protein,Urine 1+ (Negative); RBC,Urine <1 /hpf (0-5); Specific Gravity,Urine 1.011 (1.001-1.035); Urobilinogen,Urine <2.0 mg/dL (<2.0); WBC,Urine <1 /hpf (0-5)
[2017-10-25] MEDS ORDERED: cefTRIAXone IN SWFI 1,000 MG/10 ML SYRINGE IVP STA (13:09)
[2017-10-25] MEDS ORDERED: metroNIDAZOLE-NS PMX 500 MG in SALINE 1 100ML.BAG IVPB STA (13:09)
[2017-10-25] MEDS ORDERED: ONDANSETRON 4 MG/2 ML VIAL IVP PRN (13:13)
[2017-10-25] MEDS ORDERED: SODIUM CHLORIDE 0.9% 1,000 ML IV ONE (13:13)
[2017-10-25] MEDS ORDERED: NALOXONE 0.4 MG/ML 1 ML VIAL IV PRN (13:13)
[2017-10-25] MEDS: MORPHINE SULFATE 4 MG/ML SYRINGE IV PRN (13:41)
[2017-10-25] MEDS ORDERED: IPRATROPIUM-ALBUTEROL 3 ML NEB INHALATION PRN (14:55)
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
[2017-10-25 16:00] LABS: INR 1.2 (<1.2); Partial Thromboplastin Time 26.9 sec (22.0-30.0); Prothrombin Time 11.2 sec (9.0-12.0)
[2017-10-25 17:09] LABS: Glucose,Whole Blood 135 mg/dL (75-99)
[2017-10-25 20:29] LABS: Glucose,Whole Blood 145 mg/dL (75-99)
[2017-10-25] MEDS: METOPROLOL TARTRATE 12.5 MG TAB PO SCH (21:07)
[2017-10-26] MEDS: metroNIDAZOLE-NS PMX 500 MG in SALINE 1 100ML.BAG IVPB SCH ×4 (01:09→23:31)
[2017-10-26 07:38] LABS: Glucose,Whole Blood 117 mg/dL (75-99)
[2017-10-26 08:29] LABS: Basophils # (A) 0.1 k/uL (0-0.2); Basophils % (A) 0 %; Eosinophils # (A) 0.1 k/uL (0-0.7); Eosinophils % (A) 1 %; HGB 11.7 gm/dL (13.0-17.5); Lymphocytes # (A) 0.9 k/uL (1.0-4.8); Lymphocytes % (A) 5 %; MCH 30.3 pg (25.0-35.0); MCHC 30.7 g/dL (31.0-37.0); MCV 98.8 fL (80.0-100.0); Mean Platelet Volume 8.7; Monocytes # (A) 0.8 k/uL (0-1.0); Monocytes % (A) 4 %; Neutrophils # (A) 16.4 k/uL (1.3-7.7); Neutrophils % (A) 89 %; Platelet Count 174 k/uL (150-450); RBC 3.85 m/uL (4.30-5.90); WBC 18.4 k/uL (3.8-10.6)
[2017-10-26] MEDS: METOPROLOL TARTRATE 12.5 MG TAB PO SCH ×2 (08:40→20:55)
[2017-10-26 08:48] LABS: Albumin 2.6 g/dL (3.5-5.0); Total Bilirubin 0.7 mg/dL (0.2-1.3); Total Protein 5.2 g/dL (6.3-8.2)
[2017-10-26] MEDS ORDERED: ASPIRIN 81 MG PO SCH (09:00)
[2017-10-26] MEDS ORDERED: CLOPIDOGREL 75 MG TAB PO SCH (09:00)
--- NOTE | 2017-10-26 09:47 | P.PN ---
Subjective Progress Note Date: 10/26/17 Principal diagnosis: Diverticulitis with contained perforation The patient is seen on rounds. He feels weak today. Denies any nausea or vomiting. He is passing flatus. Minimal abdominal pain. Complaining of some numbness in his right hand. Objective - Vital Signs Vital signs: Vital Signs Temp 97.9 F 10/26/17 07:00 Pulse 82 10/26/17 07:00 Resp 18 10/26/17 07:00 BP 105/57 10/26/17 07:00 Pulse Ox 95 10/26/17 07:00 Intake & Output 10/25/17 10/26/17 10/26/17 18:59 06:59 18:59 Intake Total 1799 Output Total 300 600 Balance -300 1199 Weight 97.069 kg Intake: Intake, IV Titration 1799 Amount Sodium Chloride 0.9% 1, 600 000 ml @ 75 mls/hr IV . [id number] ONE Rx#:[id number] Sodium Chloride 0.9% 1, 999 000 ml @ 999 mls/hr IV . Q1H1M STA Rx#:[id number] metroNIDAZOLE-NS PMX 500 100 mg In Saline 1 100ml.bag @ 100 mls/hr IVPB ONCE STA Rx#:[id number] metroNIDAZOLE-NS PMX 500 100 mg In Saline 1 100ml.bag @ 100 mls/hr IVPB Q8HR VASILE Rx#:[id number] Oral 0 Output: Urine 300 600 Straight 300 600 Other: # Voids 0 0 - Constitutional General appearance: Present: cooperative, no acute distress - Respiratory Respiratory: bilateral: CTA - Cardiovascular Rhythm: regular - Gastrointestinal General gastrointestinal: Present: normal bowel sounds, soft, tenderness ( Epigastric and left lower quadrant. No guarding or rebound). Absent: distended - Labs CBC & Chem 7: 10/26/17 08:03 10/26/17 08:03 Labs: Abnormal Lab Results - Last 24 Hours (Table) 10/25/17 10/25/17 10/25/17 Range/Units 10:35 10:35 12:32 WBC 19.1 H (3.8-10.6) k/uL RBC (4.30-5.90) m/uL Hgb (13.0-17.5) gm/dL Hct (39.0-53.0) % MCHC (31.0-37.0) g/dL Neutrophils # 17.1 H (1.3-7.7) k/uL Lymphocytes # 0.9 L (1.0-4.8) k/uL INR (<1.2) Sodium 134 L (137-145) mmol/L BUN 32 H (9-20) mg/dL Creatinine 1.64 H (0.66-1.25) mg/dL Glucose 188 H (74-99) mg/dL POC Glucose (mg/dL) (75-99) mg/dL Calcium (8.4-10.2) mg/dL AST 13 L (17-59) U/L ALT 19 L (21-72) U/L Total Protein 6.1 L (6.3-8.2) g/dL Albumin 3.4 L (3.5-5.0) g/dL Urine Protein 1+ H (Negative) Urine Bacteria Rare H (None) /hpf Hyaline Casts 3 H (0-2) /lpf Urine Mucus Rare H (None) /hpf 10/25/17 10/25/17 10/25/17 Range/Units 15:10 16:52 20:18 WBC (3.8-10.6) k/uL RBC (4.30-5.90) m/uL Hgb (13.0-17.5) gm/dL Hct (39.0-53.0) % MCHC (31.0-37.0) g/dL Neutrophils # (1.3-7.7) k/uL Lymphocytes # (1.0-4.8) k/uL INR 1.2 H (<1.2) Sodium (137-145) mmol/L BUN (9-20) mg/dL Creatinine (0.66-1.25) mg/dL Glucose (74-99) mg/dL POC Glucose (mg/dL) 135 H 145 H (75-99) mg/dL Calcium (8.4-10.2) mg/dL AST (17-59) U/L ALT (21-72) U/L Total Protein (6.3-8.2) g/dL Albumin (3.5-5.0) g/dL Urine Protein (Negative) Urine Bacteria (None) /hpf Hyaline Casts (0-2) /lpf Urine Mucus (None) /hpf 10/26/17 10/26/17 10/26/17 Range/Units 07:35 08:03 08:03 WBC 18.4 H (3.8-10.6) k/uL RBC 3.85 L (4.30-5.90) m/uL Hgb 11.7 L (13.0-17.5) gm/dL Hct 38.0 L (39.0-53.0) % MCHC 30.7 L (31.0-37.0) g/dL Neutrophils # 16.4 H (1.3-7.7) k/uL Lymphocytes # 0.9 L (1.0-4.8) k/uL INR (<1.2) Sodium (137-145) mmol/L BUN 33 H (9-20) mg/dL Creatinine 1.82 H (0.66-1.25) mg/dL Glucose 126 H (74-99) mg/dL POC Glucose (mg/dL) 117 H (75-99) mg/dL Calcium 8.0 L (8.4-10.2) mg/dL AST 14 L (17-59) U/L ALT 20 L (21-72) U/L Total Protein 5.2 L (6.3-8.2) g/dL Albumin 2.6 L (3.5-5.0) g/dL Urine Protein (Negative) Urine Bacteria (None) /hpf Hyaline Casts (0-2) /lpf Urine Mucus (None) /hpf Microbiology - Last 24 Hours (Table) 10/25/17 12:32 Urine Culture - Preliminary Urine,Catheterized Assessment and Plan (1) Sigmoid diverticulitis Current Visit: Yes Status: Acute Code(s): K57.32 - DVTRCLI OF LG INT W/O PERFORATION OR ABSCESS W/O BLEEDING SNOMED Code(s): 008833447 (2) CKD (chronic kidney disease) Current Visit: No Status: Acute Code(s): N18.9 - CHRONIC KIDNEY DISEASE, UNSPECIFIED SNOMED Code(s): 427723876 (3) Chronic renal insufficiency Current Visit: No Status: Acute Code(s): N18.9 - CHRONIC KIDNEY DISEASE, UNSPECIFIED SNOMED Code(s): 760039558 (4) Congestive heart disease Current Visit: No Status: Acute Code(s): I50.9 - HEART FAILURE, UNSPECIFIED SNOMED Code(s): 75062233 (5) Dehydration Current Visit: No Status: Acute Code(s): E86.0 - DEHYDRATION SNOMED Code(s ): 15499252 (6) Diabetes Current Visit: No Status: Acute Code(s): E11.9 - TYPE 2 DIABETES MELLITUS WITHOUT COMPLICATIONS SNOMED Code(s): 96149728 Plan: Patient's physical exam is relatively unremarkable. He still has a significant leukocytosis. We'll watch him carefully for development of peritoneal signs or sepsis. Hold Plavix and aspirin at present until we make sure he doesn't require surgery. Further recommendations to follow.
[2017-10-26] MEDS: MORPHINE SULFATE 4 MG/ML SYRINGE IV PRN (10:22)
[2017-10-26] MEDS: HEPARIN SODIUM,PORCINE 5,000 UNIT/ML 1 ML VIAL SQ SCH ×3 (10:35→23:31)
[2017-10-26 12:23] LABS: Glucose,Whole Blood 123 mg/dL (75-99)
[2017-10-26 13:52] VITALS: BMI 30.7
[2017-10-26] MEDS: cefTRIAXone IN SWFI 1,000 MG/10 ML SYRINGE IVP SCH (15:46)
[2017-10-26 17:16] LABS: Glucose,Whole Blood 126 mg/dL (75-99)
[2017-10-26] MEDS: TAMSULOSIN 0.4 MG CAP.ER.24H PO SCH (17:54)
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
[2017-10-26 20:39] LABS: Glucose,Whole Blood 119 mg/dL (75-99)
[2017-10-26 21:37] LABS: Hemoglobin A1C 6.5 % (4.0-6.0)
[2017-10-27] MEDS: MORPHINE SULFATE 4 MG/ML SYRINGE IV PRN ×2 (01:42→19:45)
[2017-10-27 07:08] LABS: Glucose,Whole Blood 108 mg/dL (75-99)
[2017-10-27] MEDS: METOPROLOL TARTRATE 12.5 MG TAB PO SCH ×2 (08:25→20:39)
[2017-10-27] MEDS: metroNIDAZOLE-NS PMX 500 MG in SALINE 1 100ML.BAG IVPB SCH ×2 (08:25→16:07)
[2017-10-27] MEDS: HEPARIN SODIUM,PORCINE 5,000 UNIT/ML 1 ML VIAL SQ SCH ×2 (08:25→16:07)
[2017-10-27 12:09] LABS: Glucose,Whole Blood 107 mg/dL (75-99)
--- NOTE | 2017-10-27 13:35 | P.PN ---
Subjective Progress Note Date: 10/27/17 Principal diagnosis: Diverticulitis with contained perforation The patient is seen on rounds. He is denying any abdominal pain, nausea, vomiting. Passing some flatus. Feels better than admission. Objective - Vital Signs Vital signs: Vital Signs Temp 97.4 F L 10/27/17 06:30 Pulse 79 10/27/17 06:30 Resp 20 10/27/17 06:30 BP 118/56 10/27/17 06:30 Pulse Ox 97 10/27/17 07:26 Intake & Output 10/26/17 10/27/17 10/27/17 18:59 06:59 18:59 Output Total 304 550 200 Balance -304 -550 -200 Weight 97.069 kg 97.069 kg Output: Urine 75 550 200 Post Void Residual 229 Other: # Voids 1 1 - Constitutional General appearance: Present: cooperative, no acute distress - Gastrointestinal General gastrointestinal: Present: normal bowel sounds, soft. Absent: tenderness (No guarding or rebound) - Labs CBC & Chem 7: 10/26/17 08:03 10/26/17 08:03 Labs: Abnormal Lab Results - Last 24 Hours (Table) 10/26/17 10/26/17 10/26/17 Range/Units 08:03 17:13 20:38 POC Glucose (mg/dL) 126 H 119 H (75-99) mg/dL Hemoglobin A1c 6.5 H (4.0-6.0) % 10/27/17 10/27/17 Range/Units 07:07 12:00 POC Glucose (mg/dL) 108 H 107 H (75-99) mg/dL Hemoglobin A1c (4.0-6.0) % Microbiology - Last 24 Hours (Table) 10/25/17 12:32 Urine Culture - Final Urine,Catheterized Assessment and Plan (1) Sigmoid diverticulitis Current Visit: Yes Status: Acute Code(s): K57.32 - DVTRCLI OF LG INT W/O PERFORATION OR ABSCESS W/O BLEEDING SNOMED Code(s): 978766491 (2) CKD (chronic kidney disease) Current Visit: No Status: Acute Code(s): N18.9 - CHRONIC KIDNEY DISEASE, UNSPECIFIED SNOMED Code(s): 640191055 (3) Chronic renal insufficiency Current Visit: No Status: Acute Code(s): N18.9 - CHRONIC KIDNEY DISEASE, UNSPECIFIED SNOMED Code(s): 436932338 (4) Congestive heart disease Current Visit: No Status: Acute Code(s): I50.9 - HEART FAILURE, UNSPECIFIED SNOMED Code(s): 18086816 (5) Dehydration Current Visit: No Status: Acute Code(s): E86.0 - DEHYDRATION SNOMED Code(s ): 61171081 (6) Diabetes Current Visit: No Status: Acute Code(s): E11.9 - TYPE 2 DIABETES MELLITUS WITHOUT COMPLICATIONS SNOMED Code(s): 79004199 Plan: Patient is doing well. No signs of sepsis. We'll start him on clear liquid diet and advance as tolerated. As long as his exam and labs remain unremarkable tomorrow, he can be restarted on his Plavix and aspirin. Further recommendations to follow.
[2017-10-27] MEDS: cefTRIAXone IN SWFI 1,000 MG/10 ML SYRINGE IVP SCH (16:07)
[2017-10-27 17:17] LABS: Glucose,Whole Blood 146 mg/dL (75-99)
[2017-10-27] MEDS: TAMSULOSIN 0.4 MG CAP.ER.24H PO SCH (20:39)
[2017-10-27 20:54] LABS: Glucose,Whole Blood 153 mg/dL (75-99)
--- NOTE | 2017-10-27 23:30 | P.PN ---
Progress Note - Text Presenting complaint: Abdominal pain Interval history: This is a 87-year-old patient of Dr. Prashanth Stein. Chronic stable medical conditions include congestive heart failure EF 55%, one artery disease, hypertension, COPD, chronic kidney disease stage III. Patient presents with 2 days of increasing abdominal pain nausea of the thyroid. No obvious fever. No fever or chills. There have a computed tomography scan in the ER and it showed sigmoid diverticulitis with localized abscess of 3.9 cm. Patient was admitted nothing by mouth and started on IV antibiotics. Dr. Bravo from general surgery was consulted. Today-patient feels a bit better and on pain is improved. Pass some gas. Getting IV antibiotics. Seen by Dr. Bravo today. Started on clear liquids. Review of systems: Was done for constitutional, cardiovascular, GI, pulmonary. relevant finding as above Current medications reviewed that included: IV ceftriaxone, IV Flagyl Investigations: Accu-Cheks and noted Assessment: Review of systems: Was done for constitutional, cardiovascular, GI, pulmonary. 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 Continued with IV antibiotics. Continue with IV fluids. Patient encouraged tablet. Check labs in the morning.
[2017-10-28] MEDS: metroNIDAZOLE-NS PMX 500 MG in SALINE 1 100ML.BAG IVPB SCH ×2 (01:11→09:53)
[2017-10-28] MEDS: HEPARIN SODIUM,PORCINE 5,000 UNIT/ML 1 ML VIAL SQ SCH ×3 (01:12→16:19)
[2017-10-28 07:26] LABS: Glucose,Whole Blood 132 mg/dL (75-99)
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
[2017-10-28 08:09] LABS: Basophils % (A) 0 %; Eosinophils # (A) 0.6 k/uL (0-0.7); Eosinophils % (A) 7 %; HCT 35.7 % (39.0-53.0); HGB 11.2 gm/dL (13.0-17.5); Lymphocytes # (A) 0.6 k/uL (1.0-4.8); Lymphocytes % (A) 7 %; MCH 30.3 pg (25.0-35.0); MCHC 31.4 g/dL (31.0-37.0); MCV 96.5 fL (80.0-100.0); Mean Platelet Volume 9.3; Monocytes # (A) 0.4 k/uL (0-1.0); Monocytes % (A) 5 %; Neutrophils # (A) 6.7 k/uL (1.3-7.7); Neutrophils % (A) 80 %; Platelet Count 194 k/uL (150-450); RDW 13.7 % (11.5-15.5); WBC 8.4 k/uL (3.8-10.6)
[2017-10-28 08:41] LABS: Calcium 8.3 mg/dL (8.4-10.2)
[2017-10-28] MEDS: METOPROLOL TARTRATE 12.5 MG TAB PO SCH ×2 (09:33→20:50)
--- NOTE | 2017-10-28 10:38 | P.PN ---
Subjective Progress Note Date: 10/28/17 Principal diagnosis: Diverticulitis with contained perforation The patient is doing well. No pain. No nausea or vomiting. Tolerating a diet. He's passing some flatus but no BM yet. Objective - Vital Signs Vital signs: Vital Signs Temp 97.2 F L 10/28/17 07:00 Pulse 83 10/28/17 07:00 Resp 18 10/28/17 07:00 BP 120/62 10/28/17 07:00 Pulse Ox 98 10/28/17 07:00 Intake & Output 10/27/17 10/28/17 10/28/17 18:59 06:59 18:59 Intake Total 350 Output Total 800 550 Balance -800 -200 Intake: Oral 350 Output: Urine 800 550 Other: Voiding Method Indwelling Catheter Indwelling Catheter # Voids 4 - Constitutional General appearance: Present: cooperative, no acute distress - Respiratory Respiratory: bilateral: CTA - Cardiovascular Rhythm: regular - Gastrointestinal General gastrointestinal: Present: normal bowel sounds, soft. Absent: tenderness - Labs CBC & Chem 7: 10/28/17 07:44 10/28/17 07:44 Labs: Abnormal Lab Results - Last 24 Hours (Table) 10/27/17 10/27/17 10/27/17 Range/Units 12:00 17:16 20:44 RBC (4.30-5.90) m/uL Hgb (13.0-17.5) gm/dL Hct (39.0-53.0) % Lymphocytes # (1.0-4.8) k/uL BUN (9-20) mg/dL Creatinine (0.66-1.25) mg/dL Glucose (74-99) mg/dL POC Glucose (mg/dL) 107 H 146 H 153 H (75-99) mg/dL Calcium (8.4-10.2) mg/dL 10/28/17 10/28/17 10/28/17 Range/Units 07:23 07:44 07:44 RBC 3.70 L (4.30-5.90) m/uL Hgb 11.2 L (13.0-17.5) gm/dL Hct 35.7 L (39.0-53.0) % Lymphocytes # 0.6 L (1.0-4.8) k/uL BUN 34 H (9-20) mg/dL Creatinine 1.39 H (0.66-1.25) mg/dL Glucose 125 H (74-99) mg/dL POC Glucose (mg/dL) 132 H (75-99) mg/dL Calcium 8.3 L (8.4-10.2) mg/dL Assessment and Plan (1) Sigmoid diverticulitis Current Visit: Yes Status: Acute Code(s): K57.32 - DVTRCLI OF LG INT W/O PERFORATION OR ABSCESS W/O BLEEDING SNOMED Code(s): 965453973 (2) CKD (chronic kidney disease) Current Visit: No Status: Acute Code(s): N18.9 - CHRONIC KIDNEY DISEASE, UNSPECIFIED SNOMED Code(s): 567121716 (3) Chronic renal insufficiency Current Visit: No Status: Acute Code(s): N18.9 - CHRONIC KIDNEY DISEASE, UNSPECIFIED SNOMED Code(s): 354538796 (4) Congestive heart disease Current Visit: No Status: Acute Code(s): I50.9 - HEART FAILURE, UNSPECIFIED SNOMED Code(s): 14072293 (5) Dehydration Current Visit: No Status: Acute Code(s): E86.0 - DEHYDRATION SNOMED Code(s ): 52540808 (6) Diabetes Current Visit: No Status: Acute Code(s): E11.9 - TYPE 2 DIABETES MELLITUS WITHOUT COMPLICATIONS SNOMED Code(s): 67391410 Plan: The patient's doing well. Will advance his diet. Continue antibiotics for another week. May restart Plavix and aspirin. Currently nonsurgical.
[2017-10-28 12:16] LABS: Glucose,Whole Blood 171 mg/dL (75-99)
[2017-10-28] MEDS: metroNIDAZOLE 500 MG TAB PO SCH (16:19)
[2017-10-28] MEDS: cefTRIAXone IN SWFI 1,000 MG/10 ML SYRINGE IVP SCH (16:19)
--- NOTE | 2017-10-28 17:03 | P.PN ---
Progress Note - Text Progress Note Date: 10/28/17 Presenting complaint: Abdominal pain Interval history: This is a 87-year-old patient of Dr. Prashanth Stein. Chronic stable medical conditions include congestive heart failure EF 55%, one artery disease, hypertension, COPD, chronic kidney disease stage III. Patient presents with 2 days of increasing abdominal pain nausea of the thyroid. No obvious fever. No fever or chills. There have a computed tomography scan in the ER and it showed sigmoid diverticulitis with localized abscess of 3.9 cm. Patient was admitted nothing by mouth and started on IV antibiotics. Dr. Bravo from general surgery was consulted. Today-doing better. No abdominal pain. No nausea vomiting. Diet was advanced by surgery. Getting IV antibiotics. Laying in bed. Current medications reviewed that included: IV ceftriaxone, oral Flagyl Review of systems: Was done for constitutional, cardiovascular, GI, pulmonary. relevant finding as above Investigations: Accu-Cheks and noted White count 8.4, hemoglobin 11.2, potassium 5, BUN 34, creatinine 1.39 Assessment: -Acute sigmoid diverticulitis with a localized abscess 3.9 cm contained, but no peritoneal signs, clinical improvement. 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 Continue with current antibiotics. Overall patient doing better.
[2017-10-28 20:47] LABS: Glucose,Whole Blood 161 mg/dL (75-99)
[2017-10-28] MEDS: TAMSULOSIN 0.4 MG CAP.ER.24H PO SCH (20:50)
[2017-10-28] MEDS: MORPHINE SULFATE 4 MG/ML SYRINGE IV PRN (20:51)
[2017-10-29] MEDS: HEPARIN SODIUM,PORCINE 5,000 UNIT/ML 1 ML VIAL SQ SCH ×4 (00:39→23:15)
[2017-10-29] MEDS: metroNIDAZOLE 500 MG TAB PO SCH ×4 (00:39→23:15)
[2017-10-29] MEDS: MORPHINE SULFATE 4 MG/ML SYRINGE IV PRN (00:46)
[2017-10-29 07:24] LABS: Glucose,Whole Blood 146 mg/dL (75-99)
[2017-10-29 08:42] LABS: Calcium 8.3 mg/dL (8.4-10.2); Potassium 4.8 mmol/L (3.5-5.1)
[2017-10-29] MEDS: METOPROLOL TARTRATE 12.5 MG TAB PO SCH ×2 (08:54→20:07)
[2017-10-29] MEDS: CLOPIDOGREL 75 MG TAB PO SCH (08:54)
[2017-10-29] MEDS: ASPIRIN 81 MG PO SCH (08:54)
[2017-10-29 11:38] LABS: Glucose,Whole Blood 191 mg/dL (75-99)
--- NOTE | 2017-10-29 12:14 | P.PN ---
Progress Note - Text Progress Note Date: 10/29/17 The patient is doing well from a surgical standpoint. We'll follow up as needed.
[2017-10-29] MEDS: cefTRIAXone IN SWFI 1,000 MG/10 ML SYRINGE IVP SCH (15:53)
[2017-10-29] MEDS: LACTULOSE 20 GM/30 ML CUP PO SCH (16:06)
[2017-10-29 16:47] LABS: Glucose,Whole Blood 171 mg/dL (75-99)
[2017-10-29] MEDS ORDERED: BISACODYL 5 MG TABLET.DR PO STA (18:47)
[2017-10-29] MEDS: TAMSULOSIN 0.4 MG CAP.ER.24H PO SCH (20:07)
[2017-10-29] MEDS: MORPHINE ORAL SOLN 10 MG/5 ML CUP PO PRN (20:07)
[2017-10-29 21:47] LABS: Glucose,Whole Blood 145 mg/dL (75-99)
--- NOTE | 2017-10-29 22:42 | P.PN ---
Progress Note - Text Progress Note Date: 10/29/17 Presenting complaint: Abdominal pain Interval history: This is a 87-year-old patient of Dr. Prashanth Stein. Chronic stable medical conditions include congestive heart failure EF 55%, one artery disease, hypertension, COPD, chronic kidney disease stage III. Patient presents with 2 days of increasing abdominal pain nausea of the thyroid. No obvious fever. No fever or chills. There have a computed tomography scan in the ER and it showed sigmoid diverticulitis with localized abscess of 3.9 cm. Patient was admitted nothing by mouth and started on IV antibiotics. Dr. Bravo from general surgery was consulted. Today-no further abdominal pain. Has had no bowel movement since admission. Tolerating his diet. [place] catheter remains in place that is coudetype. Review of systems: Was done for constitutional, cardiovascular, GI, pulmonary. relevant finding as above Current medications reviewed that included IV ceftriaxone and Flagyl Investigations: Accu-Cheks and noted BUN 26, creatinine 1.33 Assessment: -Acute sigmoid diverticulitis with a localized abscess 3.9 cm contained, but no peritoneal signs, clinical improvement. 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 Hasn't give lactulose 1 dose. 2 the [place] catheter in. We'll have him follow up with nephrology for the same. Care was discussed with the patient.
[2017-10-30 07:35] LABS: Glucose,Whole Blood 120 mg/dL (75-99)
[2017-10-30 07:59] LABS: Calcium 8.3 mg/dL (8.4-10.2); Potassium 4.5 mmol/L (3.5-5.1)
[2017-10-30] MEDS: LACTULOSE 20 GM/30 ML CUP PO SCH (08:48)
[2017-10-30] MEDS: HEPARIN SODIUM,PORCINE 5,000 UNIT/ML 1 ML VIAL SQ SCH ×3 (08:48→23:25)
[2017-10-30] MEDS: LEVOFLOXACIN 750 MG TAB PO SCH (08:49)
[2017-10-30] MEDS: metroNIDAZOLE 500 MG TAB PO SCH ×3 (08:49→23:25)
[2017-10-30] MEDS: METOPROLOL TARTRATE 12.5 MG TAB PO SCH ×2 (08:49→19:56)
[2017-10-30] MEDS: ASPIRIN 81 MG PO SCH (08:49)
[2017-10-30] MEDS: CLOPIDOGREL 75 MG TAB PO SCH (08:49)
[2017-10-30] MEDS ORDERED: BISACODYL 5 MG TABLET.DR PO STA (11:36)
[2017-10-30 12:13] LABS: Glucose,Whole Blood 209 mg/dL (75-99)
[2017-10-30 17:16] LABS: Glucose,Whole Blood 156 mg/dL (75-99)
[2017-10-30] MEDS: MORPHINE ORAL SOLN 10 MG/5 ML CUP PO PRN ×2 (17:22→23:30)
[2017-10-30] MEDS: TAMSULOSIN 0.4 MG CAP.ER.24H PO SCH (19:56)
[2017-10-30 22:29] LABS: Glucose,Whole Blood 132 mg/dL (75-99)
--- NOTE | 2017-10-30 22:59 | PN ---
PROGRESS NOTE October 30, 2017. PRESENTING COMPLAINT: Abdominal pain. INTERVAL HISTORY: This is a patient presented with acute sigmoid diverticulitis with localized abscess. The patient has yet not had a bowel movement, was given lactulose yesterday. Again given lactulose today and had no bowel movement. Dulcolax suppository was ordered. The patient has been tolerating a diet. The patient has had no abdominal pain. The patient states it will be difficult to go home and manage on his own. REVIEW OF SYSTEMS: Done for constitutional, cardiovascular, GI, pulmonary; relevant findings as above. CURRENT MEDICATIONS: Include p.o. Levaquin and Flagyl. EXAMINATION: Afebrile, pulse 67, respiratory rate 16. Blood pressure 111/44, pulse ox 94 percent on 1.5 L. GENERAL APPEARANCE: Lying in bed, awake. EYES: Pupils are equal. Conjunctivae normal. HEENT: External appearance of nose and ears normal. Oral cavity normal. NECK JVD not raised. Mass not palpable. RESPIRATORY effort normal. LUNGS decreased breath sounds. CARDIOVASCULAR: 1st and 2nd sounds normal. ABDOMEN: Soft, nontender. Liver and spleen is not palpable. PSYCHIATRY: Alert and oriented x3. Patient has a Merida catheter. ASSESSMENT: 1. Acute sigmoid diverticulitis with localized abscess with clinical improvement. 2. Chronic congestive heart failure from diastolic dysfunction. Ejection fraction 55- 60 percent. 3. Paroxysmal atrial fibrillation. 4. Coronary artery disease with prior history of bypass. 5. Essential hypertension. 6. Left below-knee amputation. 7. Chronic obstructive pulmonary disease in an ex-smoker. 8. Chronic medical debility, patient uses a wheelchair. 9. 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 PLAN: Continue oral antibiotic. I did speak to the nurse to get professor of social work involved. Care was discussed with the patient. MMODL / IJN: [id number] /
[2017-10-31 07:36] LABS: Glucose,Whole Blood 146 mg/dL (75-99)
[2017-10-31] MEDS: MORPHINE ORAL SOLN 10 MG/5 ML CUP PO PRN (08:20)
[2017-10-31] MEDS: CLOPIDOGREL 75 MG TAB PO SCH (08:21)
[2017-10-31] MEDS: ASPIRIN 81 MG PO SCH (08:21)
[2017-10-31] MEDS: METOPROLOL TARTRATE 12.5 MG TAB PO SCH ×2 (08:21→21:09)
[2017-10-31] MEDS: metroNIDAZOLE 500 MG TAB PO SCH ×2 (08:21→17:48)
[2017-10-31] MEDS: LACTULOSE 20 GM/30 ML CUP PO SCH (08:21)
[2017-10-31] MEDS: LEVOFLOXACIN 750 MG TAB PO SCH (08:21)
[2017-10-31] MEDS: HEPARIN SODIUM,PORCINE 5,000 UNIT/ML 1 ML VIAL SQ SCH ×2 (08:21→17:48)
[2017-10-31 09:26] LABS: Calcium 8.6 mg/dL (8.4-10.2); Potassium 4.7 mmol/L (3.5-5.1)
[2017-10-31 12:27] LABS: Glucose,Whole Blood 133 mg/dL (75-99)
[2017-10-31 17:17] LABS: Glucose,Whole Blood 152 mg/dL (75-99)
[2017-10-31 20:37] LABS: Glucose,Whole Blood 134 mg/dL (75-99)
[2017-10-31] MEDS: TAMSULOSIN 0.4 MG CAP.ER.24H PO SCH (21:09)
[2017-11-01] MEDS: HEPARIN SODIUM,PORCINE 5,000 UNIT/ML 1 ML VIAL SQ SCH ×3 (01:14→14:53)
[2017-11-01] MEDS: metroNIDAZOLE 500 MG TAB PO SCH ×3 (01:14→14:53)
--- NOTE | 2017-11-01 05:27 | PN ---
PROGRESS NOTE DATE OF SERVICE: 10/31/17. PRESENTING COMPLAINT: Tired. INTERVAL HISTORY: This patient presented with acute sigmoid diverticulitis with localized abscess. Has not had any more abdominal pain. The patient had multiple bowel movements overnight. This morning patient went back and forth several times about his disposition at time of discharge. He does not want to go to rehab. At the same time he does not want to go home. He has been tolerating his diet. Lying in bed. The nurse called me several times about this today. manager field investigations is involved. Social Work was also consulted. I also asked the patient liaison, Doug, to help out with this situation to see what he can do. REVIEW OF SYSTEMS: Done for constitutional, cardiovascular, GI, pulmonary; relevant findings as above. CURRENT MEDICATIONS: Include p.o. Levaquin and Flagyl. PHYSICAL EXAMINATION: Temperature 98, pulse 75, respiratory 18, blood pressure 135/84, pulse ox 94 percent. GENERAL APPEARANCE: Lying in bed, comfortable. EYES: Pupils equal. Conjunctivae normal. HEENT: External appearance of nose and ears normal. Oral cavity normal. NECK: JVD not raised. Mass not felt. RESPIRATORY: Effort, lungs decreased breath sounds. CARDIOVASCULAR: First and second sounds normal. ABDOMEN: Soft, nontender. Liver and spleen not palpable. PSYCHIATRY: Awake, lying in bed. GENITOURINARY: Merida catheter in place. INVESTIGATIONS: Potassium 4.7, BUN 22, creatinine 1.32. Accu-Cheks 133, 122, 134. ASSESSMENT: 1. Acute sigmoid diverticulitis with localized abscess with clinical improvement. 2. Chronic congestive heart failure from diastolic dysfunction. Ejection fraction 55- 60 percent. 3. Paroxysmal atrial fibrillation. 4. Coronary artery disease with prior history of bypass. 5. Essential hypertension. 6. Left below-knee amputation. 7. Chronic obstructive pulmonary disease in an ex-smoker. 8. Chronic medical debility. Patient uses a wheelchair. 9. Chronic kidney disease stage III from nephrosclerosis. PLAN: hothouse worker, case management director and patient liaison are all involved. The patient does earlier often told me that he will go home in the evening but then he changes his mind. He does not want to go to rehab and does not want to go home. I am not sure further how else I can help him. In the meantime, continue current medication and treatment. Total time spent today was about 45 minutes including 25 to 30 minutes of discussion. MMLILIBETHL / IJN: [id number] /
[2017-11-01 06:42] VITALS: RESP 15
[2017-11-01 07:56] LABS: Glucose,Whole Blood 120 mg/dL (75-99)
[2017-11-01] MEDS: MORPHINE ORAL SOLN 10 MG/5 ML CUP PO PRN (08:59)
[2017-11-01] MEDS: ASPIRIN 81 MG PO SCH (09:02)
[2017-11-01] MEDS: CLOPIDOGREL 75 MG TAB PO SCH (09:02)
[2017-11-01] MEDS: METOPROLOL TARTRATE 12.5 MG TAB PO SCH (09:02)
[2017-11-01] MEDS: LACTULOSE 20 GM/30 ML CUP PO SCH (09:04)
[2017-11-01 11:40] LABS: Glucose,Whole Blood 193 mg/dL (75-99)
[2017-11-01] MEDS: INSULIN ASPART 100 UNIT/ML 1 ML 10 ML VIAL SQ SCH ×2 (13:23→17:47)
[2017-11-01] MEDS: HYDROcodone/APAP 5-325MG 1 EACH TAB PO PRN ×2 (14:29→18:33)
[2017-11-01 17:03] VITALS: BP 126/61; PULSE 67; TEMP 97.7
[2017-11-01 17:38] LABS: Glucose,Whole Blood 129 mg/dL (75-99)
--- NOTE | 2017-11-01 18:47 | DS ---
DISCHARGE SUMMARY DATE OF ADMISSION: 10/25/2017 DATE OF DISCHARGE: November 01, 2017. FINAL DIAGNOSES: 1. Acute sigmoid diverticulitis with localized abscess with clinical improvement, present on admission. 2. Chronic congestive heart failure from diastolic dysfunction. Ejection fraction 55- 60 percent, POA. 3. Paroxysmal atrial fibrillation. 4. Coronary artery disease with prior history of coronary bypass, POA. 5. Essential hypertension. 6. Left below-knee amputation chronic. 7. Chronic obstructive pulmonary disease in an ex-smoker. 8. Chronic medical debility, patient uses a wheelchair. 9. 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 10.Clinical Training Specialist Dr. Effie Bravo. 11.Acute urinary retention from enlarged prostate. Coude catheter in place. HOSPITAL COURSE: This patient presented with abdominal pain, found to have sigmoid diverticulitis with localized abscess on CT scan, treated with antibiotics to which he did really well. Now the patient has no further abdominal pain having bowel movements. Tolerating a diet. PHYSICAL EXAMINATION: Temperature 99.2, pulse 79, respiratory rate 16, blood pressure 120/51. The patient's BUN is 22, creatinine is 1.32. White count is 8.4, hemoglobin 11.2. ABDOMEN: Soft nontender lungs decreased breath sounds. DISCHARGE MEDICATIONS: 1. [place] 05/325 0.5 p.o. q.i.d. p.r.n. 2. Aspirin 81 mg a day. 3. Plavix 75 mg a day. 4. NovoLog a.c. t.i.d. per scale. 5. Flonase 2 sprays each nostril daily p.r.n. 6. Vitamin D2 85613 units p.o. on Monday. 7. Lantus 10 units subcu q.h.s. 8. DuoNeb q.i.d. p.r.n. 9. Lopressor 12.5 p.o. b.i.d. 10.Levaquin 750 mg q.48 hours, 10 tablets. 11.Senokot S 1 tablet p.o. daily. 12.Flomax 0.4 mg p.o. q.h.s. 13.Flagyl 500 mg p.o. q.8 30 tablets. Clarification: The patient's Levaquin is to be given for next 10 days. DISPOSITION: [facility]. FOLLOWUP: Follow up with Dr. Kearney at [facility]. Follow up with Dr. Pope after DC from the [facility]. Follow up with Dr. Effie Bravo on 11/07/2017 at 11 a.m. Follow up with Dr. Delacruz on November 17, 2017 at 8:00 am Additionally, patient had acute urinary retention due to enlarged prostate. The patient has got a Merida catheter in for the same. Copy to Dr. Pope. MMARTEMIO / IJN: [id number] /
[2017-11-02] MEDS ORDERED: LEVOFLOXACIN 750 MG TAB PO SCH (09:00)
== END 2017-11-01 19:33 | DRG 392 ==
LOC: EC 10:26 → 4MS4W 13:09
PROVIDERS: ADMIT Hospitalist; ATTEND Hospitalist
DX: K57.20 Diverticulitis of large intestine with perforation and abscess without bleeding (principal); I13.0 Hypertensive heart and chronic kidney disease with heart failure and stage 1 through stage 4 chronic kidney disease, or unspecified chronic kidney disease; I50.32 Chronic diastolic (congestive) heart failure; E11.22 Type 2 diabetes mellitus with diabetic chronic kidney disease; E11.42 Type 2 diabetes mellitus with diabetic polyneuropathy; E11.51 Type 2 diabetes mellitus with diabetic peripheral angiopathy without gangrene; E78.5 Hyperlipidemia, unspecified; E86.0 Dehydration; G54.6 Phantom limb syndrome with pain; I25.10 Atherosclerotic heart disease of native coronary artery without angina pectoris; I48.0 Paroxysmal atrial fibrillation; J44.9 Chronic obstructive pulmonary disease, unspecified; N18.3 Chronic kidney disease, stage 3 (moderate); N40.1 Benign prostatic hyperplasia with lower urinary tract symptoms; N47.1 Phimosis; R33.8 Other retention of urine; Z79.02 Long term (current) use of antithrombotics/antiplatelets; Z79.4 Long term (current) use of insulin; Z79.82 Long term (current) use of aspirin; Z82.3 Family history of stroke; Z86.010 Personal history of colon polyps; Z87.440 Personal history of urinary (tract) infections; Z87.891 Personal history of nicotine dependence; Z89.512 Acquired absence of left leg below knee; Z95.1 Presence of aortocoronary bypass graft; Z79.51 Long term (current) use of inhaled steroids; Z79.899 Other long term (current) drug therapy; Z88.2 Allergy status to sulfonamides; S88.112S Complete traumatic amputation at level between knee and ankle, left lower leg, sequela; H26.9 Unspecified cataract; Z99.3 Dependence on wheelchair; R53.81 Other malaise
CPT/HCPCS: 36415; 74018; 74176; 80048; 80053; 81001; 82150; 83036; 83605; 83690; 85025; 85610; 85730; 87086; 94760; 96361; 96365; 96375; 96376; 99285

== ENCOUNTER 2017-11-17 03:46 | Emergency (ER) | payer MEDICARE, OTHER ==
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
[2017-11-17 04:26] VITALS: RESP 16
[2017-11-17 04:50] LABS: Appearance,Urine Clear (Clear); Bacteria,Urine Rare /hpf; Bilirubin,Urine Negative (Negative); Blood,Urine Trace (Negative); Color,Urine Light Yellow; Glucose,Urine (UA) Negative (Negative); Hyaline Casts,Urine 3 /lpf (0-2); Ketones,Urine Negative (Negative); Leukocyte Esterase,Urine Trace (Negative); Nitrite,Urine Negative (Negative); PH, Urine 5.5 (5.0-8.0); Protein,Urine Negative (Negative); RBC,Urine 1 /hpf (0-5); Specific Gravity,Urine 1.008 (1.001-1.035); Urobilinogen,Urine <2.0 mg/dL (<2.0); WBC,Urine 4 /hpf (0-5)
[2017-11-17 05:06] VITALS: BP 113/56; PULSE 68; TEMP 98.6
== END 2017-11-17 06:14 | disposition home or self-care (01) ==
LOC: EC 03:46
DX: R33.9 Retention of urine, unspecified (principal); I48.91 Unspecified atrial fibrillation; I25.119 Atherosclerotic heart disease of native coronary artery with unspecified angina pectoris; I50.9 Heart failure, unspecified; E11.22 Type 2 diabetes mellitus with diabetic chronic kidney disease; N18.3 Chronic kidney disease, stage 3 (moderate); E11.42 Type 2 diabetes mellitus with diabetic polyneuropathy; Z87.891 Personal history of nicotine dependence; Z79.4 Long term (current) use of insulin; Z79.899 Other long term (current) drug therapy; Z88.2 Allergy status to sulfonamides; Z95.1 Presence of aortocoronary bypass graft; Z95.818 Presence of other cardiac implants and grafts
CPT/HCPCS: 51702; 81001; 99283

== ENCOUNTER 2018-01-04 12:26 | Emergency (ER) | payer MEDICARE, OTHER ==
[2018-01-04 12:44] VITALS: TEMP 97
[2018-01-04] MEDS ORDERED: DOCUSATE 283 MG/5 ML ENEMA RECTAL STA (13:26)
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
[2018-01-04 14:36] VITALS: RESP 16
--- NOTE | 2018-01-04 14:52 | XR ---
EXAMINATION TYPE: XR KUB DATE OF EXAM: 01/04/2018 2:23 PM CLINICAL HISTORY: Constipation for 3 days. Pain. TECHNIQUE: Two Upright KUB images of the abdomen are obtained. COMPARISON: Abdominal x-ray November 02, 2017. CT abdomen and pelvis October 25, 2017 FINDINGS: Scattered gas is seen in non-distended stomach and small bowel loops. Gas and fecal materia l is seen in non-distended colon and rectum. There is no visceromegaly, pneumoperitoneum, or abnormal calcification appreciated. Epicardial pacer wires are present. Post CABG changes are partially image d. Multilevel spurring and spine is redemonstrated. There is chronic left pleural thickening and/or t iny fluid collection. Reticular interstitial changes in both bases are present. New small right pleur al effusion is noted. Asymmetric moderate increased degenerative change left hip joint is present. IMPRESSION: Overall nonobstructive bowel gas pattern.
[2018-01-04 18:52] VITALS: BP 111/74; PULSE 98
== END 2018-01-04 19:45 | disposition home or self-care (01) ==
LOC: EC 12:26 → SUPCPDRO 12:26 → EC 19:45
DX: K59.00 Constipation, unspecified (principal); I48.91 Unspecified atrial fibrillation; I25.10 Atherosclerotic heart disease of native coronary artery without angina pectoris; I13.0 Hypertensive heart and chronic kidney disease with heart failure and stage 1 through stage 4 chronic kidney disease, or unspecified chronic kidney disease; I50.9 Heart failure, unspecified; N18.3 Chronic kidney disease, stage 3 (moderate); E11.22 Type 2 diabetes mellitus with diabetic chronic kidney disease; J44.9 Chronic obstructive pulmonary disease, unspecified; Z87.891 Personal history of nicotine dependence; Z89.512 Acquired absence of left leg below knee; Z95.1 Presence of aortocoronary bypass graft; Z96.653 Presence of artificial knee joint, bilateral; Z98.890 Other specified postprocedural states; Z79.4 Long term (current) use of insulin; Z79.899 Other long term (current) drug therapy; Z88.2 Allergy status to sulfonamides
CPT/HCPCS: 74018; 99284

== ENCOUNTER 2018-07-17 08:24 | Inpatient (IN) | payer MEDICARE, OTHER ==
[2018-07-17] MEDS ORDERED: SODIUM CHLORIDE 0.9% 1,000 ML IV STA (08:37)
[2018-07-17] MEDS ORDERED: MORPHINE SULFATE 4 MG/ML SYRINGE IV STA (08:37)
[2018-07-17] MEDS ORDERED: FAMOTIDINE 20 MG/2 ML VIAL IV STA (08:38)
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
[2018-07-17 09:39] LABS: Appearance,Urine Clear (Clear); Bacteria,Urine Many /hpf; Bilirubin,Urine Negative (Negative); Blood,Urine Trace (Negative); Color,Urine Yellow; Glucose,Urine (UA) Negative (Negative); Ketones,Urine 1+ (Negative); Leukocyte Esterase,Urine Large (Negative); Mucus,Urine Occasional /hpf; Nitrite,Urine Positive (Negative); Protein,Urine Trace (Negative); RBC,Urine 4 /hpf (0-5); Specific Gravity,Urine 1.019 (1.001-1.035); Squamous Epithelial Cell,Urine <1 /hpf (0-4); Urobilinogen,Urine <2.0 mg/dL (<2.0); WBC,Urine 19 /hpf (0-5)
[2018-07-17 09:48] LABS: Calcium 9.8 mg/dL (8.4-10.2); Potassium 4.3 mmol/L (3.5-5.1); Total Bilirubin 0.7 mg/dL (0.2-1.3)
[2018-07-17 09:59] LABS: Basophils # (A) 0.1 k/uL (0-0.2); Basophils % (A) 1 %; Eosinophils # (A) 0.2 k/uL (0-0.7); Eosinophils % (A) 2 %; HCT 44.8 % (39.0-53.0); HGB 14.7 gm/dL (13.0-17.5); Lymphocytes # (A) 0.9 k/uL (1.0-4.8); Lymphocytes % (A) 9 %; MCH 30.4 pg (25.0-35.0); MCHC 32.8 g/dL (31.0-37.0); MCV 92.7 fL (80.0-100.0); Mean Platelet Volume 9.9; Monocytes # (A) 0.5 k/uL (0-1.0); Monocytes % (A) 5 %; Neutrophils # (A) 8.4 k/uL (1.3-7.7); Neutrophils % (A) 82 %; Platelet Count 242 k/uL (150-450); RBC 4.83 m/uL (4.30-5.90); RDW 13.7 % (11.5-15.5); WBC 10.2 k/uL (3.8-10.6)
[2018-07-17 10:15] LABS: Partial Thromboplastin Time 26.2 sec (22.0-30.0); Prothrombin Time 10.6 sec (9.0-12.0)
--- NOTE | 2018-07-17 10:41 | CT ---
EXAMINATION TYPE: CT abdomen pelvis wo con DATE OF EXAM: 07/17/2018 COMPARISON: 10/25/2017 HISTORY: Abdominal pain CT DLP: 462.7 mGycm Automated exposure control for dose reduction was used. TECHNIQUE: Helical acquisition of images was performed from the lung bases through the pelvis. FINDINGS: LUNG BASES: Basilar subpleural fibrosis with left basilar pleural thickening. Bilateral consolidation small effusion greater on the right. Suggestive of epicardial lead. LIVER/GB: No significant abnormality is appreciated. PANCREAS: No significant abnormality is seen. SPLEEN: No significant abnormality is seen. ADRENALS: Stable mild thickening of the left adrenal KIDNEYS: No significant abnormality is seen. ADENOPATHY: None visualized. OSSEOUS STRUCTURES: Hypertrophic and degenerative change of the spine. Arthropathy of the hips. BOWEL: Diverticulosis of the colon with no CT evidence of diverticulitis. Portions of bowel are nond istended and therefore limited in assessment. No diagnostic evidence of obstruction OTHER: Atherosclerotic change of the aorta and its branch vessels noted. No sizable aneurysm. Air wit hin the bladder which is decompressed secondary to Mer[place] catheter. Prostate calcifications incidental ly noted. Soft tissue calcification or ossification noted. IMPRESSION: 1. Sigmoid diverticulosis with no CT evidence of diverticulitis. 2. Bilateral lower lobe infiltrate and small effusions greater on the right. 3. Correlate for pulmonary fibrosis.
[2018-07-17] MEDS ORDERED: cefTRIAXone IN SWFI 1,000 MG/10 ML SYRINGE IVP STA (11:03)
[2018-07-17] MEDS ORDERED: AZITHROMYCIN 500 MG in SODIUM CHLORIDE 0.9% 250 ML IVPB STA (11:04)
[2018-07-17] MEDS ORDERED: NALOXONE 0.4 MG/ML 1 ML VIAL IV PRN (11:04)
[2018-07-17] MEDS ORDERED: PNEUMONIA PROTOCOL UTILIZED 1 EACH MISC PO PRN (11:04)
[2018-07-17] MEDS ORDERED: NON-FORMULARY DRUG (Linaclotide [Linzess] 145 MCG) PO PRN (11:08)
[2018-07-17] MEDS ORDERED: SODIUM CHLORIDE 0.9% 1,000 ML IV SCH (11:15)
[2018-07-17] MEDS: ASPIRIN 81 MG PO SCH (11:31)
[2018-07-17 17:12] LABS: Glucose,Whole Blood 111 mg/dL (75-99)
[2018-07-17] MEDS: INSULIN ASPART (NovoLOG) 100 UNIT/ML VIAL SQ SCH ×2 (18:02→20:39)
[2018-07-17 20:19] LABS: Glucose,Whole Blood 104 mg/dL (75-99)
[2018-07-17] MEDS: METOPROLOL TARTRATE 12.5 MG TAB PO SCH (20:39)
[2018-07-17] MEDS: LACTATED RINGERS 1,000 ML IV SCH (23:40)
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
[2018-07-18 00:17] VITALS: RESP 16
[2018-07-18 07:03] LABS: Glucose,Whole Blood 114 mg/dL (75-99)
[2018-07-18] MEDS: PSYLLIUM HUSK 100% 6 GM PACKET PO SCH ×3 (07:03→21:43)
[2018-07-18] MEDS: INSULIN ASPART (NovoLOG) 100 UNIT/ML VIAL SQ SCH ×4 (07:08→21:34)
[2018-07-18] MEDS: LACTATED RINGERS 1,000 ML IV SCH ×3 (07:34→21:47)
[2018-07-18] MEDS: METOPROLOL TARTRATE 12.5 MG TAB PO SCH ×2 (07:37→21:34)
[2018-07-18] MEDS: CLOPIDOGREL 75 MG TAB PO SCH (07:37)
[2018-07-18] MEDS: POTASSIUM CHLORIDE ER 20 MEQ TAB.ER PO SCH (07:37)
[2018-07-18] MEDS: FUROSEMIDE 40 MG TAB PO SCH (07:38)
[2018-07-18] MEDS: DOCUSATE 100 MG CAP PO SCH (07:38)
[2018-07-18] MEDS: ASPIRIN 81 MG PO SCH (07:38)
[2018-07-18] MEDS: FLUoxetine HCL 20 MG CAP PO SCH (07:38)
[2018-07-18] MEDS: AZITHROMYCIN 500 MG TAB PO SCH (07:38)
--- NOTE | 2018-07-18 08:49 | XR ---
EXAMINATION TYPE: XR chest 2V DATE OF EXAM: 07/18/2018 COMPARISON: 09/18/2017 TECHNIQUE: PA and lateral views submitted. HISTORY: Cough possible pneumonia FINDINGS: There is bilateral consolidation small effusion greater on the left. Atherosclerotic change aorta. Po stsurgical changes. Underlying COPD suspected there is a diffuse interstitial pattern. Arthropathy of the shoulders. Hypertrophic and degenerative change of the spine. IMPRESSION: 1. Bilateral infiltrate and pleural effusion correlate for mild CHF superimposed on a background COPD . Otherwise consider pneumonia.
[2018-07-18] MEDS ORDERED: DIAZEPAM 5 MG TAB PO SCH (09:00)
[2018-07-18] MEDS ORDERED: PANTOPRAZOLE 40 MG/10 ML VIAL IV SCH (09:00)
--- NOTE | 2018-07-18 09:37 | CT ---
EXAMINATION TYPE: CT chest wo con DATE OF EXAM: 07/18/2018 COMPARISON: 09/18/2017 CT chest HISTORY: Pulmonary fibrosis CT DLP: 703 mGycm. Automated Exposure Control for Dose Reduction was Utilized. TECHNIQUE: CT scan of the thorax is performed without IV contrast. FINDINGS: LUNGS: There is peripheral basilar predominant reticular fibrosis and cylindrical bibasilar bronchiec tasis. There is moderate background centrilobular emphysematous change. Early honeycombing is seen wi thin the lingula as there is stacking of thin-walled cysts. There is a trace right pleural effusion a nd bibasilar consolidation. Within the consolidations there are numerous calcified densities. The rig ht basilar consolidation has areas of low density concerning for pneumonia in the left basilar consol idation appears to represent atelectasis. The degree of fibrosis appears to be similar to the prior o f 09/18/2017. Multifocal pleural thickening is also seen that is somewhat improved from the prior of 2 018 such as along the left lung apex on series 8 image 8 as opposed to the previous exam measuring 1. 2 cm and now measuring 4 mm. Mild peribronchial cuffing is seen of the lower lobes. No suspicious pul monary mass is evident. Few scattered calcified granulomas are seen. MEDIASTINUM: Lack of IV contrast is noted to limit evaluation for mediastinal and especially hilar ad enopathy. There are no definitive greater than 1 cm hilar or mediastinal lymph nodes. No cardiomega ly or pericardial effusion is seen. Post CABG changes are noted. OTHER: Small hiatal hernia is seen. There is moderate retroareolar flame shaped gynecomastia bilater ally. This is overall symmetric. Slight nodular thickening of the left adrenal gland is unchanged fro m the prior and may represent adrenal gland hyperplasia as it is diffusely thickened. Multilevel dege nerative changes of the thoracic spine. Median sternotomy wires are present. IMPRESSION: 1. New small right pleural effusion and heterogenous right basilar opacity favored to represent pneum onia with trace parapneumonic effusion. Numerous punctate microliths are seen within this consolidati on of uncertain etiology. Given their localized distribution these could be sequela of repeated insul t such as repeated bouts of aspiration pneumonia but other etiologies such as granulomatous disease o r much less likely silicosis or renal failure are possibilities. 2. Mild degree pulmonary fibrosis without progression from the prior exam of 2018 superimposed upon m oderate emphysematous change. 3. 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 Additionally there i s mild peribronchial cuffing suggesting superimposed reactive or infectious airway disease. 4. Improvement in multifocal pleural thickening in comparison to the prior.
[2018-07-18 11:03] LABS: Glucose,Whole Blood 201 mg/dL (75-99)
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
[2018-07-18] MEDS: SENNOSIDES-DOCUSATE SODIUM 1 EACH TAB PO SCH ×2 (14:42→21:43)
[2018-07-18 17:17] LABS: Glucose,Whole Blood 105 mg/dL (75-99)
[2018-07-18 20:01] LABS: Glucose,Whole Blood 108 mg/dL (75-99)
[2018-07-18] MEDS: ENOXAPARIN 40 MG/0.4 ML SYRINGE SQ SCH (23:12)
[2018-07-19] MEDS: LACTATED RINGERS 1,000 ML IV SCH ×3 (05:56→22:25)
--- NOTE | 2018-07-19 06:18 | PN ---
PROGRESS NOTE DATE OF SERVICE: 07/18/2018 PRESENTING COMPLAINT: Abdominal pain. INTERVAL HISTORY: Patient with multitude of symptoms including abdominal pain, felt to be primary from constipation. Seen by GI today. Also seen by Cardiology, no further intervention. CT scan is suggesting of some infectious process. Patient did tolerate some diet, pretty much been in bed. Also evidence of some pulmonary fibrosis. REVIEW OF SYSTEMS: Done for constitutional, cardiovascular, GI, pulmonary; relevant findings as above. CURRENT MEDICATIONS: Current medications are reviewed include IV fluids, ceftriaxone was started. PHYSICAL EXAMINATION: On examination, temperature 97, pulse 65, respiration 16, blood pressure 97/45, pulse ox 100% on on 2 L. GENERAL APPEARANCE: Lying in bed, awake, tired. EYES: Pupils equal. Conjunctiva normal. NECK: JVD not raised. Mass not palpable. RESPIRATORY: Effort increased. LUNGS: Decreased breath sounds. CARDIOVASCULAR: First and second sounds normal. No edema. ABDOMEN: Soft, minimal tenderness, nontender. PSYCHIATRY: Alert and oriented x3. Mood and affect slightly anxious appearing. INVESTIGATIONS: Accu-Cheks are noted. ProBNP 845. Urine cultures growing gram-negative bacilli. ASSESSMENT: 1. Chronic constipation, put on a laxative regime, has had diarrhea. 2. Possible atypical pneumonia. We will get a pulmonary opinion. 3. Pulmonary fibrosis. 4. Right bundle branch block. 5. Coronary artery disease with prior history of coronary artery bypass. 6. Chronic obstructive pulmonary disease in an ex-smoker. 7. Diabetes mellitus type 2. 8. Hyperlipidemia. 9. Primary osteoarthritis. 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 11.Peripheral arterial disease. 12.Chronic benign prostatic hypertrophy with indwelling catheter placed for last 6 months. 13.Left below-knee amputation. 14.Colonic diverticulosis. PLAN: Continue patient with ceftriaxone. Get a pulmonary opinion. Await urine culture results. The patient's medications were noted. Will DC patient's Valium in the morning that may be causing some of his significant sedation. Encourage patient to be out of bed. MMODL / IJN: [id number] /
[2018-07-19 06:58] LABS: Glucose,Whole Blood 98 mg/dL (75-99)
[2018-07-19] MEDS: INSULIN ASPART (NovoLOG) 100 UNIT/ML VIAL SQ SCH ×4 (09:37→22:25)
[2018-07-19] MEDS: FLUoxetine HCL 20 MG CAP PO SCH (09:45)
[2018-07-19] MEDS: CLOPIDOGREL 75 MG TAB PO SCH (09:45)
[2018-07-19] MEDS: METOPROLOL TARTRATE 12.5 MG TAB PO SCH ×2 (09:45→22:23)
[2018-07-19] MEDS: ASPIRIN 81 MG PO SCH (09:45)
[2018-07-19] MEDS: SENNOSIDES-DOCUSATE SODIUM 1 EACH TAB PO SCH ×2 (09:45→22:23)
[2018-07-19] MEDS: DOCUSATE 100 MG CAP PO SCH (09:46)
[2018-07-19] MEDS: POTASSIUM CHLORIDE ER 20 MEQ TAB.ER PO SCH (09:47)
[2018-07-19] MEDS: FUROSEMIDE 40 MG TAB PO SCH (09:47)
[2018-07-19] MEDS: PSYLLIUM HUSK 100% 6 GM PACKET PO SCH ×2 (09:47→22:26)
[2018-07-19] MEDS: AZITHROMYCIN 500 MG TAB PO SCH (09:48)
[2018-07-19 10:19] LABS: Basophils % (A) 0 %; Eosinophils # (A) 0.3 k/uL (0-0.7); Eosinophils % (A) 4 %; HCT 38.4 % (39.0-53.0); HGB 12.6 gm/dL (13.0-17.5); Lymphocytes # (A) 0.7 k/uL (1.0-4.8); Lymphocytes % (A) 9 %; MCH 30.9 pg (25.0-35.0); MCHC 32.9 g/dL (31.0-37.0); MCV 93.9 fL (80.0-100.0); Mean Platelet Volume 10.9; Monocytes # (A) 0.5 k/uL (0-1.0); Monocytes % (A) 7 %; Neutrophils # (A) 5.9 k/uL (1.3-7.7); Neutrophils % (A) 78 %; Platelet Count 145 k/uL (150-450); RBC 4.08 m/uL (4.30-5.90); WBC 7.6 k/uL (3.8-10.6)
[2018-07-19 10:20] LABS: Calcium 8.9 mg/dL (8.4-10.2)
--- NOTE | 2018-07-19 10:27 | ECHOF ---
Referral Reason:elev trop MEASUREMENTS -------- HEIGHT: 177.8 cm WEIGHT: 81.7 kg BP: 97/45 RVIDd: 3.6 cm (< 3.3) IVSd: 1.4 cm (0.6 - 1.1) LVIDd: 3.9 cm (3.9 - 5.3) LVPWd: 1.4 cm (0.6 - 1.1) IVSs: 1.7 cm LVIDs: 2.7 cm LVPWs: 1.7 cm LA Diam: 3.8 cm (2.7 - 3.8) LAESV Index (A-L): 25.87 ml/m Ao Diam: 3.3 cm (2.0 - 3.7) AV Cusp: 1.8 cm (1.5 - 2.6) MV EXCURSION: 15.271 mm (> 18.000) MV EF SLOPE: 64 mm/s (70 - 150) EPSS: 0.2 cm MV E Niels: 0.84 m/s MV DecT: 285 ms MV A Niels: 0.93 m/s MV E/A Ratio: 0.91 RAP: 5.00 mmHg RVSP: 33.21 mmHg FINDINGS -------- Sinus rhythm. This was a technically adequate study. The left ventricular size is normal. There is moderate concentric left ventricular hypertrophy. O verall left ventricular systolic function is normal with, an EF between 55 - 60 %. The right ventricle is mildly enlarged. Left atrium is normal size by volume. The right atrium is normal in size and function. Lumason used Interatrial and interventricular septum intact. There is mild aortic valve sclerosis without stenosis. The mitral valve is normal. Mild tricuspid regurgitation present. Right ventricular systolic pressure is normal at < 35 mmHg. There is no pulmonic regurgitation present. The aortic root size is normal. The inferior vena cava was not well visualized. The pericardium is normal. The patient has a history of open heart surgery. CONCLUSIONS -------- 1. Sinus rhythm. 2. This was a technically adequate study. 3. The left ventricular size is normal. 4. There is moderate concentric left ventricular hypertrophy. 5. Overall left ventricular systolic function is normal with, an EF between 55 - 60 %. 6. The right ventricle is mildly enlarged. 7. Left atrium is normal size by volume. 8. The right atrium is normal in size and function. 9. Lumason used 10. Interatrial and interventricular septum intact. 11. There is mild aortic valve sclerosis without stenosis. 12. The mitral valve is normal. 13. Mild tricuspid regurgitation present. 14. Right ventricular systolic pressure is normal at < 35 mmHg. 15. There is no pulmonic regurgitation present. 16. The aortic root size is normal. 17. The inferior vena cava was not well visualized. 18. The pericardium is normal. 19. The patient has a history of open heart surgery. FINANCIAL SERVICE REP: Laquita Menendez RDCS
[2018-07-19 10:55] LABS: Potassium 5.8 mmol/L (3.5-5.1)
[2018-07-19 11:12] LABS: Glucose,Whole Blood 148 mg/dL (75-99)
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
[2018-07-19] MEDS: CEFEPIME 2 GM in SODIUM CHLORIDE 0.9% 100 ML IVPB SCH ×2 (13:05→22:25)
[2018-07-19] MEDS: ONDANSETRON 4 MG/2 ML VIAL IVP PRN (13:18)
[2018-07-19] MEDS ORDERED: BISACODYL 10 MG SUPP RECTAL STA (14:43)
--- NOTE | 2018-07-19 14:45 | P.PN ---
Subjective Progress Note Date: 07/19/18 Principal diagnosis: Constipation No BM today. Passing flatus. Receiving psyllium and Senokot. Objective - Vital Signs Vital signs: Vital Signs Temp 98.3 F 07/19/18 11:52 Pulse 74 07/19/18 11:52 Resp 16 07/19/18 11:52 BP 116/56 07/19/18 11:52 Pulse Ox 99 07/19/18 11:52 Intake & Output 07/18/18 07/19/18 07/19/18 18:59 06:59 18:59 Intake Total 3600 1180 Output Total 900 400 400 Balance 2700 780 -400 Weight 81.647 kg Intake: Intake, IV Titration 1300 Amount Lactated Ringers 1,000 ml 1250 @ 125 mls/hr IV .Q8H [facility] Rx#:[id number] cefTRIAXone 1 gm In 50 Sodium Chloride 0.9% 50 ml @ 100 mls/hr IVPB Q24HR [facility] Rx#:[id number] Oral 2300 1180 Output: Urine 900 400 400 Uretheral ([place]) 400 Other: Voiding Method Indwelling Catheter Indwelling Catheter Indwelling Catheter - Exam General appearance: The patient is alert, oriented, in no acute distress. HET: Head is normocephalic and atraumatic. Pupils are equal and reactive. Oropharynx is clear without lesions. Neck: Supple without lymphadenopathy. Trachea midline. Heart: S1 S2. Regular rate and rhythm. Lungs: No crackles or wheezes are heard. Abdomen: Soft, nontender, nondistended with bowel sounds. No peritoneal signs. No palpable organomegaly or masses. Neurological: No focal deficits. Strength and sensation are grossly intact. - Labs CBC & Chem 7: 07/19/18 09:36 07/19/18 09:36 Labs: Abnormal Lab Results - Last 24 Hours (Table) 07/18/18 07/18/18 07/19/18 Range/Units 17:15 20:00 09:36 RBC 4.08 L (4.30-5.90) m/uL Hgb 12.6 L (13.0-17.5) gm/dL Hct 38.4 L (39.0-53.0) % Plt Count 145 L (150-450) k/uL Lymphocytes # 0.7 L (1.0-4.8) k/uL Potassium (3.5-5.1) mmol/L Chloride (98-107) mmol/L BUN (9-20) mg/dL Glucose (74-99) mg/dL POC Glucose (mg/dL) 105 H 108 H (75-99) mg/dL 07/19/18 07/19/18 Range/Units 09:36 11:08 RBC (4.30-5.90) m/uL Hgb (13.0-17.5) gm/dL Hct (39.0-53.0) % Plt Count (150-450) k/uL Lymphocytes # (1.0-4.8) k/uL Potassium 5.8 H (3.5-5.1) mmol/L Chloride 109 H (98-107) mmol/L BUN 34 H (9-20) mg/dL Glucose 163 H (74-99) mg/dL POC Glucose (mg/dL) 148 H (75-99) mg/dL Microbiology - Last 24 Hours (Table) 07/17/18 11:22 Blood Culture - Preliminary Blood No Growth after 48 hours 07/17/18 09:15 Urine Culture - Final Urine,Catheterized Enterobacter cloacae Assessment and Plan (1) Abdominal pain Narrative/Plan: 88-year-old gentleman admitted with persistent chronic abdominal pain with underlying constipation. CT reported colonic diverticulosis without evidence of diverticulitis. Abdominal pain most likely that she may to his underlying constipation presently on Linzess with reports of explosive diarrhea and increased abdominal pain. Current Visit: Yes Status: Acute Code(s): R10.9 - UNSPECIFIED ABDOMINAL PAIN SNOMED Code(s): 57016979 (2) Constipation Current Visit: Yes Status: Acute Code(s): K59.00 - CONSTIPATION, UNSPECIFIED SNOMED Code(s): 58317169 Plan: 1. Discontinue Linzess its causing increased abdominal pain and explosive diarrhea. Continue with psyllium supplementation as well as Senokot-S 2 tabs twice a day. Alkaline suppository 1. Patient may titrate dosing as Senokot-S on a daily basis according to his bowel movements. Will follow closely with you. Assessment and plan a care discussed with Dr. Calvo
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
[2018-07-19 17:17] LABS: Glucose,Whole Blood 168 mg/dL (75-99)
[2018-07-19 19:56] LABS: Glucose,Whole Blood 217 mg/dL (75-99)
[2018-07-19] MEDS: ENOXAPARIN 40 MG/0.4 ML SYRINGE SQ SCH (22:25)
[2018-07-19] MEDS ORDERED: SODIUM POLYSTYRENE SULFONATE 15 GM/60 ML BOTTLE PO STA (23:08)
--- NOTE | 2018-07-20 05:50 | PN ---
PROGRESS NOTE DATE OF SERVICE: 07/19/2018 PRESENTING COMPLAINT: Abdominal pain. INTERVAL HISTORY: Patient admitted with abdominal pain, felt to be primarily from constipation. Seen by GI. Also he was seen by Cardiology, not for any further intervention. Also seen by Pulmonary who did not feel that patient has any pneumonia. The patient also being treated for a UTI. 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 REVIEW OF SYSTEMS: Done for constitutional, cardiovascular, GI, pulmonary; relevant findings as above. Patient is eating much better. PHYSICAL EXAMINATION: On examination, temperature 98.3, pulse 74, respiration 16, blood pressure 116/56, pulse ox 99% on 2 L. GENERAL APPEARANCE: Lying in bed, awake. EYES: Pupils equal. Conjunctivae normal. NECK: JVD not raised. Mass not palpable. RESPIRATORY: Effort normal. LUNGS: Diminished breath sounds. CARDIOVASCULAR: First and second sounds normal. No edema. ABDOMEN: Soft, nontender. Liver and spleen not palpable. PSYCHIATRY: Awake, alert, oriented x3. Mood and affect slightly anxious appearing. INVESTIGATIONS: White count 7.6, hemoglobin 12.6. Potassium 5.8. BUN 34, creatinine 1.02. ASSESSMENT: 1. Chronic constipation. The patient is put on laxative regime. 2. No pneumonia as per Pulmonary. 3. Chronic pulmonary fibrosis. 4. Right bundle branch block. 5. Coronary artery disease, prior history of coronary artery bypass. 6. Chronic obstructive pulmonary disease in an ex-smoker. 7. Diabetes mellitus type 2. 8. Hyperlipidemia. 9. Primary osteoarthritis. 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 11.Peripheral arterial disease. 12.Chronic benign benign prostatic hypertrophy with indwelling catheter placed for last 6 months. 13.Acute urinary tract infection from Enterobacter cloacae. 14.Left below-knee amputation. 15.Colonic diverticulosis. 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 Will DC patient's lactated Ringer's because probably gave him the hyperkalemia. Give 1 dose of Kayexalate. We will switch to oral antibiotic. Repeat labs tomorrow morning. MMODL / IJN: [id number] /
[2018-07-20 06:55] LABS: Glucose,Whole Blood 109 mg/dL (75-99)
[2018-07-20] MEDS: INSULIN ASPART (NovoLOG) 100 UNIT/ML VIAL SQ SCH ×4 (08:55→21:30)
[2018-07-20 08:56] LABS: Basophils % (A) 1 %; Eosinophils # (A) 0.3 k/uL (0-0.7); Eosinophils % (A) 4 %; HCT 37.9 % (39.0-53.0); Lymphocytes # (A) 0.7 k/uL (1.0-4.8); Lymphocytes % (A) 9 %; MCHC 31.8 g/dL (31.0-37.0); MCV 94.4 fL (80.0-100.0); Mean Platelet Volume 9.2; Monocytes # (A) 0.5 k/uL (0-1.0); Monocytes % (A) 6 %; Neutrophils # (A) 6.1 k/uL (1.3-7.7); Neutrophils % (A) 79 %; Platelet Count 175 k/uL (150-450); RBC 4.01 m/uL (4.30-5.90); RDW 13.1 % (11.5-15.5); WBC 7.7 k/uL (3.8-10.6)
[2018-07-20] MEDS: ONDANSETRON 4 MG/2 ML VIAL IVP PRN (09:09)
[2018-07-20] MEDS: CLOPIDOGREL 75 MG TAB PO SCH (09:10)
[2018-07-20] MEDS: DOCUSATE 100 MG CAP PO SCH (09:10)
[2018-07-20] MEDS: METOPROLOL TARTRATE 12.5 MG TAB PO SCH ×2 (09:10→21:30)
[2018-07-20] MEDS: FUROSEMIDE 40 MG TAB PO SCH (09:10)
[2018-07-20] MEDS: FLUoxetine HCL 20 MG CAP PO SCH (09:10)
[2018-07-20] MEDS: ASPIRIN 81 MG PO SCH (09:11)
[2018-07-20] MEDS: PSYLLIUM HUSK 100% 6 GM PACKET PO SCH ×2 (09:11→21:35)
[2018-07-20] MEDS: SENNOSIDES-DOCUSATE SODIUM 1 EACH TAB PO SCH ×2 (09:11→21:30)
[2018-07-20] MEDS: CEFEPIME 2 GM in SODIUM CHLORIDE 0.9% 100 ML IVPB SCH ×2 (09:15→21:30)
[2018-07-20 09:26] LABS: Calcium 8.9 mg/dL (8.4-10.2); Potassium 4.1 mmol/L (3.5-5.1)
--- NOTE | 2018-07-20 10:43 | P.PN ---
Subjective Progress Note Date: 07/20/18 Principal diagnosis: Constipation BM x 2 last ight. Passing flatus. Receiving psyllium and Senokot. Objective - Vital Signs Vital signs: Vital Signs Temp 97.9 F 07/20/18 05:00 Pulse 78 07/20/18 05:00 Resp 16 07/20/18 05:00 BP 105/53 07/20/18 05:00 Pulse Ox 100 07/20/18 05:00 Intake & Output 07/19/18 07/20/18 07/20/18 18:59 06:59 18:59 Intake Total 1075 320 Output Total 950 1400 Balance 125 -1080 Weight 77 kg Intake: Intake, IV Titration 1000 100 Amount Cefepime 2 gm In Sodium 100 Chloride 0.9% 100 ml @ 200 mls/hr IVPB Q12HR VASILE Rx#:[id number] Lactated Ringers 1,000 ml 1000 @ 125 mls/hr IV .Q8H VASILE Rx#:[id number] Oral 75 220 Output: Urine 950 1400 Uretheral (Merida) 1400 Other: Voiding Method Indwelling Catheter Indwelling Catheter # Bowel Movements 2 - Exam General appearance: The patient is alert, oriented, in no acute distress. HET: Head is normocephalic and atraumatic. Pupils are equal and reactive. Oropharynx is clear without lesions. Neck: Supple without lymphadenopathy. Trachea midline. Heart: S1 S2. Regular rate and rhythm. Lungs: No crackles or wheezes are heard. Abdomen: Soft, nontender, nondistended with bowel sounds. No peritoneal signs. No palpable organomegaly or masses. Neurological: No focal deficits. Strength and sensation are grossly intact. - Labs CBC & Chem 7: 07/20/18 08:12 07/20/18 08:12 Labs: Abnormal Lab Results - Last 24 Hours (Table) 07/19/18 07/19/18 07/19/18 Range/Units 09:36 09:36 11:08 RBC 4.08 L (4.30-5.90) m/uL Hgb 12.6 L (13.0-17.5) gm/dL Hct 38.4 L (39.0-53.0) % Plt Count 145 L (150-450) k/uL Lymphocytes # 0.7 L (1.0-4.8) k/uL Potassium 5.8 H (3.5-5.1) mmol/L Chloride 109 H (98-107) mmol/L Carbon Dioxide (22-30) mmol/L BUN 34 H (9-20) mg/dL Glucose 163 H (74-99) mg/dL POC Glucose (mg/dL) 148 H (75-99) mg/dL 07/19/18 07/19/18 07/20/18 Range/Units 17:16 19:55 06:53 RBC (4.30-5.90) m/uL Hgb (13.0-17.5) gm/dL Hct (39.0-53.0) % Plt Count (150-450) k/uL Lymphocytes # (1.0-4.8) k/uL Potassium (3.5-5.1) mmol/L Chloride (98-107) mmol/L Carbon Dioxide (22-30) mmol/L BUN (9-20) mg/dL Glucose (74-99) mg/dL POC Glucose (mg/dL) 168 H 217 H 109 H (75-99) mg/dL 07/20/18 07/20/18 Range/Units 08:12 08:12 RBC 4.01 L (4.30-5.90) m/uL Hgb 12.0 L (13.0-17.5) gm/dL Hct 37.9 L (39.0-53.0) % Plt Count (150-450) k/uL Lymphocytes # 0.7 L (1.0-4.8) k/uL Potassium (3.5-5.1) mmol/L Chloride (98-107) mmol/L Carbon Dioxide 34 H (22-30) mmol/L BUN 31 H (9-20) mg/dL Glucose 115 H (74-99) mg/dL POC Glucose (mg/dL) (75-99) mg/dL Microbiology - Last 24 Hours (Table) 07/17/18 11:22 Blood Culture - Preliminary Blood No Growth after 48 hours 07/17/18 09:15 Urine Culture - Final Urine,Catheterized Enterobacter cloacae Assessment and Plan (1) Abdominal pain Narrative/Plan: 88-year-old gentleman admitted with persistent chronic abdominal pain with underlying constipation. CT reported colonic diverticulosis without evidence of diverticulitis. Abdominal pain most likely that she may to his underlying constipation presently on Linzess with reports of explosive diarrhea and increased abdominal pain. Current Visit: Yes Status: Acute Code(s): R10.9 - UNSPECIFIED ABDOMINAL PAIN SNOMED Code(s): 91992608 (2) Constipation Current Visit: Yes Status: Acute Code(s): K59.00 - CONSTIPATION, UNSPECIFIED SNOMED Code(s): 42547042 Plan: 1. Discontinue Linzess its causing increased abdominal pain and explosive diarrhea. Continue with psyllium supplementation as well as Senokot-S 2 tabs twice a day. Patient may titrate dosing as Senokot-S on a daily basis according to his bowel movements. Will follow on an as-needed basis. Assessment and plan a care discussed with Dr. Calvo
[2018-07-20 11:01] LABS: Glucose,Whole Blood 171 mg/dL (75-99)
[2018-07-20] MEDS: ACETAMINOPHEN TAB 500 MG TAB PO PRN ×2 (11:20→21:31)
[2018-07-20] MEDS ORDERED: SODIUM CHLORIDE 0.9% 1,000 ML IV SCH (12:30)
--- NOTE | 2018-07-20 13:03 | DS ---
DISCHARGE SUMMARY DATE OF ADMISSION: 07/17/2018 DATE OF DISCHARGE: 07/21/2018 DATE OF SERVICE: 07/20/2018 FINAL DIAGNOSES: 1. Acute severe chronic constipation causing abdominal pain. 2. No pneumonia as per Pulmonary. 3. Chronic pulmonary fibrosis. 4. Acute urinary tract infection from cystitis secondary to Merida catheter from Enterobacter cloacae, POA. 5. Chronic pulmonary fibrosis. 6. Right bundle branch block. 7. Coronary artery disease, prior history of coronary artery bypass. 8. Chronic obstructive pulmonary disease in an ex-smoker. 9. Diabetes mellitus type 2. 10.Hyperlipidemia. 11.Primary osteoarthritis. 12.No chronic kidney disease. 13.Peripheral artery disease. 14.Chronic benign prostatic hypertrophy for which patient did have indwelling catheter in the last 6 months. 15.Left below-knee amputation. 16.Chronic diverticulosis, asymptomatic. 17.Chronic hypoxic respiratory failure from underlying chronic obstructive pulmonary disease and pulmonary fibrosis. HOSPITAL COURSE: This patient presented with abdominal pain. Patient did have a CT scan of the abdomen and pelvis, found a sigmoid diverticulosis. The patient also had a high-resolution CT scan of the chest that showing pulmonary fibrosis. The patient was seen by Dr. Portillo from Pulmonary, did not feel the patient has any pneumonia. The patient did have a 2-D echocardiogram that showed EF of 55%-60%. The patient is on the dry side, hence patient's Lasix is being discontinued. The patient also being given some IV fluids today. The patient still waiting to see Urology, was supposed to have his catheter taken out 2 days ago and and office visit, was admitted. Dr. Musa will decide for about the same. The patient will complete a course of antibiotic. PHYSICAL EXAMINATION: Temperature 98, pulse 89, respiration 16, blood pressure 115/57, pulse ox 91% on 2 L. LUNGS: Decreased breath sounds. ABDOMEN: Soft, nontender. INVESTIGATIONS: White count 7.7, hemoglobin 12, potassium 4.1, BUN 31, creatinine 1.04. next consult. CONSULTATION: 1. Dr. Portillo from Pulmonary. 2. Dr. Guerita Dsouza from Cardiology. 3. Dr. Coburn from Surgery. 4. Dr. Guerita Dsouza from Cardiology. 5. Dr. Calvo from GI. DISCHARGE MEDICATIONS: 1. Aspirin 81 mg daily. 2. Plavix 75 mg p.o. daily. 3. Vitamin D2 fifty thousand units every Addison. 4. Prozac 20 mg p.o. daily. 5. Metoprolol 6.25 p.o. b.i.d. 6. Levaquin 500 mg p.o. daily for 7 days. 7. Metamucil 6 g p.o. b.i.d. 8. Senokot-S 2 tablets p.o. daily. 9. Oxygen 2 L. 10.Merida catheter as per Dr. Musa. FOLLOWUP: Follow up with Dr. Kearney at the [facility]. Follow Dr. Roney Bloom after DC from the [facility] and follow up with Dr. Musa in [address] rocael Bloom for [facility]. MMODL / IJN: [id number] /
--- NOTE | 2018-07-20 14:10 | P.PN ---
Subjective Progress Note Date: 07/20/18 Principal diagnosis: Stable pulmonary fibrosis with small pleural effusions, no evidence of pneumonia, acute urinary tract infection This is a 88-year-old white male patient of Dr. Bloom, with past medical history of coronary artery disease, congestive heart failure, COPD, diabetes mellitus, hyperlipidemia, paroxysmal atrial fibrillation, osteoarthritis, previous episodes of pneumonia, chronic kidney disease stage III, recurrent urinary tract infections, peripheral vascular disease status post left below the knee amputation, presented to the hospital on 07/17/2018 with lanes of abdominal discomfort, creased appetite, constipation. She denied any fevers, no nausea or vomiting. The abdominal discomfort was diffuse. Patient has a chronic indwelling catheter the last 6 months for urinary retention and history of BPH. And patient always [facility], and they'll Merida catheter was do to be taken out a couple of days ago. Abdominal/pelvis CT showed sigmoid diverticulosis with no CT evidence of diverticulitis, bilateral lower lobe infiltrates and small effusions greater on the right. Dedicated CT chest has been completed, and showed a small right pleural effusion and with the right basilar opacity, with the concern for pneumonia with trace effusion, and not there was a mild degree of pulmonary fibrosis without progression which was compared to prior exam with superimposed moderately severe emphysematous changes. Also cylindrical bronchiectasis in the lung bases are related to postinfectious process, and peribronchial cuffing suggestive of infectious airway disease. The patient denies any shortness of breath, he is on 2 L of ox ygen pulse ox upon 99%, he is afebrile, hemodynamically patient is stable, hasn't even and nonlabored, lung sounds reveal clear breath sounds, no wheezes, no rales or rhonchi. No chest wall tenderness, pleuritic chest pain. No evidence of peripheral edema. EchoCardiogram was completed showing preserved left ventricle systolic function of 55-60%, mild aortic valve sclerosis without stenosis, mild TR, no pulmonary hypertension with right-sided pressures less than 35 mmHg. Cough or phlegm production, blood culture was negative for any growth, urine culture showed Enterobacter cloacae, resistant to current coverage with Rocephin. On 07/20/2016 patient seen in follow-up on the medical surgical floor. He is resting in the recliner, he denies any shortness of breath, no cough or congestion, he still complains of vague abdominal discomfort, some hip discomfort, and lower extremity discomfort, but no pulmonary complaints. He is on 2 L of oxygen with a pulse ox of 91%, room air pulse ox was 83%, afebrile, hemodynamically stable, yesterday we switched the patient's antibiotic coverage to cefepime for evidence of enterococcus cloacae in the urine culture. These labs have been reviewed, white blood cell count 7.7, hemoglobin is 12.0, sodium was 139, potassium is 4.1, chloride was 101, CO2 is 34, B1 is 31 creatinine is 1.04. Patient is awaiting evaluation by urology in regards to chronic indwelling catheter. [facility] is pending likely in the next 24 hours. Objective - Vital Signs Vital signs: Vital Signs Temp 98.0 F 07/20/18 11:23 Pulse 89 07/20/18 11:23 Resp 16 07/20/18 11:23 BP 115/57 07/20/18 11:23 Pulse Ox 91 L 07/20/18 11:38 Intake & Output 07/19/18 07/20/18 07/20/18 18:59 06:59 18:59 Intake Total 1075 320 Output Total 950 1400 400 Balance 125 -1080 -400 Weight 77 kg Intake: Intake, IV Titration 1000 100 Amount Cefepime 2 gm In Sodium 100 Chloride 0.9% 100 ml @ 200 mls/hr IVPB Q12HR [facility] Rx#:[id number] Lactated Ringers 1,000 ml 1000 @ 125 mls/hr IV .Q8H VASILE Rx#:[id number] Oral 75 220 Output: Urine 950 1400 400 Uretheral (Merida) 1400 Other: Voiding Method Indwelling Catheter Indwelling Catheter Indwelling Catheter # Bowel Movements 2 - Exam GENERAL EXAM: Alert, pleasant, 88-year-old white male, on 2 L of oxygen, with a pulse ox of 99% resting comfortably in bed, comfortable in no apparent distress. HEAD: Normocephalic/atraumatic. EYES: Normal reaction of pupils, equal size. Conjunctiva pink, sclera white. NOSE: Clear with pink turbinates. THROAT: No erythema or exudates. NECK: No masses, no JVD, no thyroid enlargement, no adenopathy. CHEST: No chest wall deformity. Symmetrical expansion. LUNGS: Equal air entry with no crackles, wheeze, rhonchi or dullness. CVS: Regular rate and rhythm, normal S1 and S2, no gallops, no murmurs, no rubs ABDOMEN: Soft, nontender. No hepatosplenomegaly, normal bowel sounds, no guarding or rigidity. EXTREMITIES: No clubbing, no edema, no cyanosis, 2+ pulses and upper and lower extremities. MUSCULOSKELETAL: Muscle strength and tone normal. SPINE: No scoliosis or deformity SKIN: No rashes CENTRAL NERVOUS SYSTEM: Alert and oriented -3. No focal deficits, tone is normal in all 4 extremities. PSYCHIATRIC: Alert and oriented -3. Appropriate affect. Intact judgment and insight. - Labs CBC & Chem 7: 07/20/18 08:12 07/20/18 08:12 Labs: Abnormal Lab Results - Last 24 Hours (Table) 07/19/18 07/19/18 07/20/18 Range/Units 17:16 19:55 06:53 RBC (4.30-5.90) m/uL Hgb (13.0-17.5) gm/dL Hct (39.0-53.0) % Lymphocytes # (1.0-4.8) k/uL Carbon Dioxide (22-30) mmol/L BUN (9-20) mg/dL Glucose (74-99) mg/dL POC Glucose (mg/dL) 168 H 217 H 109 H (75-99) mg/dL 07/20/18 07/20/18 07/20/18 Range/Units 08:12 08:12 11:00 RBC 4.01 L (4.30-5.90) m/uL Hgb 12.0 L (13.0-17.5) gm/dL Hct 37.9 L (39.0-53.0) % Lymphocytes # 0.7 L (1.0-4.8) k/uL Carbon Dioxide 34 H (22-30) mmol/L BUN 31 H (9-20) mg/dL Glucose 115 H (74-99) mg/dL POC Glucose (mg/dL) 171 H (75-99) mg/dL Microbiology - Last 24 Hours (Table) 07/17/18 11:22 Blood Culture - Preliminary Blood No Growth after 72 hours Assessment and Plan Plan: Assessment: #1. Abdominal discomfort, decreased appetite and the CT of the abdomen and pelvis showed sigmoid diverticulosis without evidence of diverticulitis #2. Stable pulmonary fibrosis, with small pleural effusions, doubt underlying pneumonia #3. Acute urinary tract infection, with cultures positive for Enterobacter cloacae #4. Chronic indwelling catheter for the past 6 months for treatment of urinary retention #5. History of COPD, currently stable #6. History of nicotine dependence, currently in remission #7. Positive troponins, cardiology is following #8. History of paroxysmal atrial fibrillation #9. History of coronary artery disease with prior bypass surgery #10. Chronic kidney disease stage III #11. Peripheral Vascular disease status post left [id number] amputation Plan: Continue current antibiotic coverage, stable from pulmonary perspective, CT chest showed stable pulmonary fibrosis with small pleural effusions, encourage deep breathing and coughing, patient is afebrile, stable for discharge to subacute rehab in the next 24 hours as long as his been cleared by other consultants, awaiting evaluation by urology service in regards to indwelling catheter. We will sign off, and see the patient on as-needed basis. I performed a history & physical examination of the patient and discussed their management with my nurse practitioner, Esperanza German. I reviewed the nurse practitioner's note and agree with the documented findings and plan of care. Lung sounds are positive for clear breath sounds. The findings and the impression was discussed with the patient. I attest to the documentation by the nurse practitioner. Time with Patient: Less than 30
[2018-07-20 15:15] VITALS: BMI 24.3
[2018-07-20 16:59] LABS: Glucose,Whole Blood 158 mg/dL (75-99)
[2018-07-20 19:58] LABS: Glucose,Whole Blood 231 mg/dL (75-99)
[2018-07-20 21:03] VITALS: TEMP 97.6
[2018-07-20] MEDS: ENOXAPARIN 40 MG/0.4 ML SYRINGE SQ SCH (21:30)
[2018-07-21 05:13] VITALS: BP 128/59; PULSE 91
[2018-07-21 07:01] LABS: Glucose,Whole Blood 111 mg/dL (75-99)
[2018-07-21 07:36] LABS: Calcium 8.7 mg/dL (8.4-10.2); Potassium 4.4 mmol/L (3.5-5.1)
[2018-07-21] MEDS: INSULIN ASPART (NovoLOG) 100 UNIT/ML VIAL SQ SCH ×2 (08:45→12:11)
[2018-07-21] MEDS: ONDANSETRON 4 MG/2 ML VIAL IVP PRN (08:54)
[2018-07-21] MEDS: METOPROLOL TARTRATE 12.5 MG TAB PO SCH (08:56)
[2018-07-21] MEDS: SENNOSIDES-DOCUSATE SODIUM 1 EACH TAB PO SCH (08:57)
[2018-07-21] MEDS: CEFEPIME 2 GM in SODIUM CHLORIDE 0.9% 100 ML IVPB SCH (08:57)
[2018-07-21] MEDS: ASPIRIN 81 MG PO SCH (08:57)
[2018-07-21] MEDS: DOCUSATE 100 MG CAP PO SCH (08:57)
[2018-07-21] MEDS: CLOPIDOGREL 75 MG TAB PO SCH (08:57)
[2018-07-21] MEDS: FLUoxetine HCL 20 MG CAP PO SCH (08:57)
[2018-07-21] MEDS: FUROSEMIDE 40 MG TAB PO SCH (08:57)
[2018-07-21] MEDS: ACETAMINOPHEN TAB 500 MG TAB PO PRN (09:04)
[2018-07-21] MEDS: PSYLLIUM HUSK 100% 6 GM PACKET PO SCH (09:05)
[2018-07-21 11:51] LABS: Glucose,Whole Blood 176 mg/dL (75-99)
== END 2018-07-21 16:55 | DRG 699 ==
LOC: EC 08:24 → 3NMEDONC 11:04 → OBSVTOIN 07-18 10:23
PROVIDERS: ADMIT Hospitalist; ATTEND Hospitalist
DX: T83.511A Infection and inflammatory reaction due to indwelling urethral catheter, initial encounter (principal); N30.00 Acute cystitis without hematuria; I13.0 Hypertensive heart and chronic kidney disease with heart failure and stage 1 through stage 4 chronic kidney disease, or unspecified chronic kidney disease; I45.2 Bifascicular block; J96.11 Chronic respiratory failure with hypoxia; K59.00 Constipation, unspecified; B96.89 Other specified bacterial agents as the cause of diseases classified elsewhere; E11.21 Type 2 diabetes mellitus with diabetic nephropathy; E11.22 Type 2 diabetes mellitus with diabetic chronic kidney disease; E11.36 Type 2 diabetes mellitus with diabetic cataract; E11.42 Type 2 diabetes mellitus with diabetic polyneuropathy; E11.51 Type 2 diabetes mellitus with diabetic peripheral angiopathy without gangrene; E66.9 Obesity, unspecified; Z68.24 Body mass index [BMI] 24.0-24.9, adult; E78.5 Hyperlipidemia, unspecified; G89.29 Other chronic pain; I25.10 Atherosclerotic heart disease of native coronary artery without angina pectoris; I35.8 Other nonrheumatic aortic valve disorders; I45.10 Unspecified right bundle-branch block; I48.0 Paroxysmal atrial fibrillation; I50.9 Heart failure, unspecified; J44.9 Chronic obstructive pulmonary disease, unspecified; J84.10 Pulmonary fibrosis, unspecified; K57.30 Diverticulosis of large intestine without perforation or abscess without bleeding; K59.09 Other constipation; M13.0 Polyarthritis, unspecified; N18.3 Chronic kidney disease, stage 3 (moderate); N40.1 Benign prostatic hyperplasia with lower urinary tract symptoms; Z89.512 Acquired absence of left leg below knee; Z79.02 Long term (current) use of antithrombotics/antiplatelets; Z79.82 Long term (current) use of aspirin; Z79.899 Other long term (current) drug therapy; Z82.3 Family history of stroke; Z87.440 Personal history of urinary (tract) infections; Z87.891 Personal history of nicotine dependence; Z95.1 Presence of aortocoronary bypass graft; S88.112S Complete traumatic amputation at level between knee and ankle, left lower leg, sequela; V29.9XXS Motorcycle rider (driver) (passenger) injured in unspecified traffic accident, sequela; Z88.2 Allergy status to sulfonamides
CPT/HCPCS: 36415; 71046; 71250; 74176; 80048; 80053; 81001; 82150; 82550; 83605; 83690; 83880; 84484; 85025; 85610; 85730; 87040; 87077; 87086; 87186; 93005; 93306; 96361; 96365; 96375; 99285

== ENCOUNTER 2018-09-04 19:17 | Emergency (ER) | payer MEDICARE, OTHER ==
[2018-09-04 19:24] VITALS: BP 147/67; TEMP 98
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
[2018-09-04 19:55] VITALS: PULSE 55; RESP 16
--- NOTE | 2018-09-07 01:06 | CDI ---
Dear Oliver Merino DO: Please do addendum History of present illness, Physical Examination, and Medical decission making. Thank you, Liss Whitehead, Structural Manager. If you have any questions, please contact Barn Operator at [phone]. [facility]
== END 2018-09-04 20:24 | disposition home or self-care (01) ==
LOC: EC 19:17
DX: T83.018A Breakdown (mechanical) of other urinary catheter, initial encounter (principal); I25.119 Atherosclerotic heart disease of native coronary artery with unspecified angina pectoris; I48.0 Paroxysmal atrial fibrillation; N18.3 Chronic kidney disease, stage 3 (moderate); I50.9 Heart failure, unspecified; E11.22 Type 2 diabetes mellitus with diabetic chronic kidney disease; E11.51 Type 2 diabetes mellitus with diabetic peripheral angiopathy without gangrene; Z87.891 Personal history of nicotine dependence; Z88.2 Allergy status to sulfonamides; Z79.899 Other long term (current) drug therapy; Z95.1 Presence of aortocoronary bypass graft; Z97.3 Presence of spectacles and contact lenses; Z87.438 Personal history of other diseases of male genital organs
CPT/HCPCS: 51702; 99283

== ENCOUNTER 2018-09-19 17:45 | Emergency (ER) | payer MEDICARE, OTHER ==
[2018-09-19 17:54] VITALS: BP 150/73; PULSE 59; RESP 18; TEMP 97.9
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
[2018-09-19 18:44] LABS: Appearance,Urine Cloudy (Clear); Bilirubin,Urine Negative (Negative); Blood,Urine Large (Negative); Color,Urine Yellow; Glucose,Urine (UA) Negative (Negative); Ketones,Urine Negative (Negative); Leukocyte Esterase,Urine Large (Negative); Nitrite,Urine Negative (Negative); Protein,Urine 1+ (Negative); RBC,Urine >182 /hpf (0-5); Specific Gravity,Urine 1.012 (1.001-1.035); Urobilinogen,Urine <2.0 mg/dL (<2.0); WBC,Urine 155 /hpf (0-5)
== END 2018-09-19 21:06 | disposition home or self-care (01) ==
LOC: EC 17:45
DX: T83.511A Infection and inflammatory reaction due to indwelling urethral catheter, initial encounter (principal); N39.0 Urinary tract infection, site not specified; I13.0 Hypertensive heart and chronic kidney disease with heart failure and stage 1 through stage 4 chronic kidney disease, or unspecified chronic kidney disease; I50.9 Heart failure, unspecified; N18.3 Chronic kidney disease, stage 3 (moderate); E11.22 Type 2 diabetes mellitus with diabetic chronic kidney disease; I25.119 Atherosclerotic heart disease of native coronary artery with unspecified angina pectoris; N40.1 Benign prostatic hyperplasia with lower urinary tract symptoms; M19.90 Unspecified osteoarthritis, unspecified site; R33.8 Other retention of urine; Z89.512 Acquired absence of left leg below knee; Z87.891 Personal history of nicotine dependence; Z88.2 Allergy status to sulfonamides; Z79.899 Other long term (current) drug therapy; Z95.1 Presence of aortocoronary bypass graft; Z99.3 Dependence on wheelchair
CPT/HCPCS: 51701; 81001; 99284

== ENCOUNTER 2018-11-29 17:59 | Observation (INO) | payer MEDICARE, OTHER ==
[2018-11-29] MEDS ORDERED: SODIUM CHLORIDE 0.9% 1,000 ML IV STA (18:35)
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
[2018-11-29 19:48] LABS: Basophils # (A) 0.1 k/uL (0-0.2); Basophils % (A) 1 %; Eosinophils # (A) 0.4 k/uL (0-0.7); Eosinophils % (A) 4 %; HCT 35.2 % (39.0-53.0); HGB 11.1 gm/dL (13.0-17.5); Lymphocytes # (A) 0.7 k/uL (1.0-4.8); Lymphocytes % (A) 6 %; MCH 30.3 pg (25.0-35.0); MCHC 31.5 g/dL (31.0-37.0); MCV 96.3 fL (80.0-100.0); Mean Platelet Volume 9.1; Monocytes # (A) 0.6 k/uL (0-1.0); Monocytes % (A) 6 %; Neutrophils # (A) 9.6 k/uL (1.3-7.7); Neutrophils % (A) 83 %; Platelet Count 231 k/uL (150-450); RBC 3.66 m/uL (4.30-5.90); RDW 13.8 % (11.5-15.5); WBC 11.5 k/uL (3.8-10.6)
[2018-11-29 20:02] LABS: Amorphous Sediment,Urine Occasional /hpf; Appearance,Urine Cloudy (Clear); Bilirubin,Urine Negative (Negative); Blood,Urine Trace (Negative); Color,Urine Yellow; Glucose,Urine (UA) Negative (Negative); Hyphae Yeast, Urine Occasional /hpf; Ketones,Urine Negative (Negative); Leukocyte Esterase,Urine Large (Negative); Nitrite,Urine Negative (Negative); Protein,Urine 1+ (Negative); RBC,Urine 5 /hpf (0-5); Specific Gravity,Urine 1.019 (1.001-1.035); Urobilinogen,Urine <2.0 mg/dL (<2.0)
[2018-11-29 20:03] LABS: Albumin 3.6 g/dL (3.5-5.0); Calcium 9.5 mg/dL (8.4-10.2); Phosphorus 3.9 mg/dL (2.5-4.5); Potassium 5.1 mmol/L (3.5-5.1); Total Bilirubin 0.5 mg/dL (0.2-1.3); Total Protein 6.7 g/dL (6.3-8.2)
[2018-11-29 20:07] LABS: Partial Thromboplastin Time 27.6 sec (22.0-30.0); Prothrombin Time 10.5 sec (9.0-12.0)
[2018-11-29] MEDS ORDERED: SODIUM CHLORIDE 0.9% 1,000 ML IV ONE (21:40)
[2018-11-29] MEDS ORDERED: LORazepam 2 MG/ML INJ IV STA (23:00)
[2018-11-29] MEDS ORDERED: ACETAMINOPHEN TAB 325 MG TAB PO PRN (23:01)
[2018-11-29] MEDS ORDERED: HYDROcodone/APAP 5-325MG 1 EACH TAB PO PRN (23:01)
[2018-11-29] MEDS ORDERED: ONDANSETRON 4 MG TAB PO PRN (23:01)
[2018-11-29] MEDS ORDERED: guaiFENesin 600 MG TABLET.ER PO PRN (23:01)
[2018-11-30 08:34] LABS: Basophils # (A) 0.1 k/uL (0-0.2); Basophils % (A) 1 %; Eosinophils # (A) 0.4 k/uL (0-0.7); Eosinophils % (A) 5 %; HGB 10.1 gm/dL (13.0-17.5); Lymphocytes # (A) 0.6 k/uL (1.0-4.8); Lymphocytes % (A) 8 %; MCH 30.4 pg (25.0-35.0); MCHC 31.4 g/dL (31.0-37.0); MCV 96.6 fL (80.0-100.0); Mean Platelet Volume 8.8; Monocytes # (A) 0.5 k/uL (0-1.0); Monocytes % (A) 6 %; Neutrophils # (A) 6.1 k/uL (1.3-7.7); Neutrophils % (A) 78 %; Platelet Count 210 k/uL (150-450); RBC 3.31 m/uL (4.30-5.90); RDW 13.8 % (11.5-15.5); WBC 7.8 k/uL (3.8-10.6)
[2018-11-30] MEDS ORDERED: METOPROLOL TARTRATE 12.5 MG TAB PO SCH (09:00)
[2018-11-30] MEDS ORDERED: CLOPIDOGREL 75 MG TAB PO SCH (09:00)
[2018-11-30] MEDS ORDERED: ENOXAPARIN 40 MG/0.4 ML SYRINGE SQ SCH (09:00)
[2018-11-30] MEDS ORDERED: SENNOSIDES-DOCUSATE SODIUM 1 EACH TAB PO SCH (09:00)
[2018-11-30] MEDS ORDERED: NON FORMULARY DRUG (Lactose-Reduced Food [Ensure Plus] 120 ML) PO SCH (09:00)
[2018-11-30] MEDS ORDERED: PANTOPRAZOLE 40 MG TABLET PO SCH (09:00)
[2018-11-30] MEDS ORDERED: ASPIRIN 81 MG PO SCH (09:00)
[2018-11-30] MEDS ORDERED: PSYLLIUM HUSK 100% 6 GM PACKET PO SCH (09:00)
[2018-11-30] MEDS ORDERED: FLUoxetine HCL 20 MG CAP PO SCH (09:00)
[2018-11-30 09:53] LABS: Albumin 3.1 g/dL (3.5-5.0); Potassium 4.8 mmol/L (3.5-5.1); Total Bilirubin 0.4 mg/dL (0.2-1.3); Total Protein 6.1 g/dL (6.3-8.2)
--- NOTE | 2018-11-30 10:59 | XR ---
EXAMINATION TYPE: XR pelvis AP view DATE OF EXAM: 11/29/2018 COMPARISON: NONE HISTORY: Pain The osseous structures are intact and the joint spaces are preserved. Could not exclude a deformity a long the right inferior pubic ramus. Visualized bowel gas pattern is nonspecific. Arthropathy of th e hips are noted. Correlate for femoral acetabular impingement. Heterogeneous marrow signal involving the proximal right femur is nonspecific. If there is a history of malignancy correlate with bone sca n. IMPRESSION: 1. As noted by the preliminary report a fracture along the inferior right previous ramus is not exclu ded recommend follow-up CT scan.
--- NOTE | 2018-11-30 11:03 | XR ---
EXAMINATION TYPE: XR knee complete RT DATE OF EXAM: 11/29/2018 COMPARISON: NONE HISTORY: Pain TECHNIQUE: 3 views are submitted. FINDINGS: Diffuse osteopenia. Surgical clips and vascular calcifications are noted. Severe narrowing the patell ofemoral joint and medial compartment of the knee joint. Could not exclude a subtle deformity of the lateral tibial plateau. Chondrocalcinosis noted. Small suprapatellar bursal fluid collection. IMPRESSION: 1. Severe osteoarthritis. Could not exclude a subtle deformity of the lateral tibial plateau. If ther e is lateral knee pain correlate with CT scan..
[2018-11-30 11:46] LABS: Glucose,Whole Blood 132 mg/dL (75-99)
--- NOTE | 2018-11-30 12:05 | CT ---
EXAMINATION TYPE: CT brain moo sapp con DATE OF EXAM: 11/29/2018 COMPARISON: 11/02/2017 HISTORY: Fall CT DLP: 1434.5 mGycm, Automated exposure control for dose reduction was used. CONTRAST: Patient injected with 0 mL of Isovue 300. CT of the brain is performed utilizing 3 mm thick sections through the posterior fossa and 3 mm thick sections through the remaining calvarium. Study is performed within 24 hours of arrival to the hospital. No abnormal hyperdensity is present to suggest an acute intracranial hemorrhage. No mass lesion is evident. No acute infarcts are evident. Periventricular white matter hypodensity is present, likely on the ba sis of chronic white matter ischemic change. The finding is stable from October 2017. Ventricles and sulci are very prominent for the patient age. Occult thickening is within the left maxillary sinus. Remaining paranasal sinuses and mastoid air mattie ls are clear. IMPRESSIONS: 1. Marked atrophy with chronic appearing periventricular white matter ischemic changes. 2. Mild mucosal thickening left maxillary sinus. 3. Preliminary results were provided by the on-call radiologist. CT cervical spine. COMPARISON: None CT of the cervical spine is performed in the axial plane at 2 mm thick sections. Reconstructed image s in the coronal, and sagittal plane are reviewed on the computer. No acute fractures are evident. Very minimal grade 1 spondylolisthesis of C3 3 on C4 may be present. There is loss of disc height through the cervical spine. This is most notable at C5-6. Vertebral body heights are preserved. No spinal canal stenosis is evident. Some endplate changes and C3-4 and C5-6 have mild anterior theca l sac compression. Uncovertebral joint hypertrophy has moderate right and severe left foraminal stenosis C6-7. Moderate bilateral foraminal stenosis present C5-6. Mild left foraminal stenosis present C4-5. Endplate change s and uncovertebral joint hypertrophy are present C3-4. IMPRESSIONS: 1. No acute osseous abnormality cervical spine. 2. Extensive degenerative disc changes and facet hypertrophy, uncovertebral joint hypertrophy and for aminal stenosis discussed above.
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
--- NOTE | 2018-11-30 12:45 | P.DS ---
Providers Date of admission: 11/29/18 21:41 Expected date of discharge: 11/30/18 Attending physician: Mg Wade Primary care physician: Lenny [facility] Course: History of presenting complaint: This is a pleasant 88-year-old patient who follows with visiting physicians Dr. Roney Monahan. Patient is currently a resident of the [facility]. Patient chronic stable medical conditions include atrial fibrillation, coronary artery disease, COPD, diabetes, hyperlipidemia, osteoarthritis, chronic kidney disease, BPH causing urinary retention with a chronic [place] catheter. Patient also has paroxysmal atrial fibrillation, left below-knee amputation arthritis. Patient presented to ER yesterday from a [facility]. Patient had taken a fall out of the bed. When asked the patient when it happened he said it was a stupid thing needed. This possibly was confused there. He was found to have a UTI here is started on IV ceftriaxone. Patient doing better this morning Did tolerate his diet. Resting bed. Denies any pain. Patient was admitted with a diagnosis of UTI with delirium. Did receive IV ceftriaxone. Did much better. White count had come down. No fever. Tolerating a diet. Physical examination: VITAL SIGNS: 98, 81, 16, 145/71, 98% on 3 L GENERAL: BMI 24.2, laying in bed awake comfortable. EYES: Pupils equal. Conjunctiva normal. HEENT: External appearance of nose and ears normal, oral cavity grossly normal. NECK: JVD not raised; masses not palpable. HEART: First and second heart sounds are normal; no edema. LUNGS: Respiratory rate normal; decreased breath sounds. ABDOMEN: Soft, nontender, liver spleen not palpable, no masses palpable. Merida catheter. PSYCH: Awake answering simple questionsl. EXTREMITY: Left above-knee amputation INVESTIGATIONS, reviewed in the clinical context: White count 7.8 creatinine 1.23 Admission labs: White count 11.5 hemoglobin 11.1 platelets 231 potassium 5.1 BUN 43 creatinine 1.46 Patient is labs in June 2018 included a BUN of 34 and creatinine of 1.12 UA positive for leukoesterase and WBC Discharge diagnosis: -Acute delirium from underlying UTI leading to patient possibly falling from bed. -Acute UTI from cystitis secondary to Merida catheter -Persistent atrial fibrillation -Coronary artery disease -Chronic congestive heart failure -COPD in an ex-smoker -Diabetes mellitus type II -Hyperlipidemia -Primary osteoarthritis -BPH -Chronic urinary retention because of BPH to chronic Merida catheter -Left below-knee amputation Disposition: ECF Patient Condition at Discharge: Stable Plan - Discharge Summary Discharge Rx Participant: No New Discharge Prescriptions: New Cefuroxime Axetil [Ceftin] 500 mg PO BID #14 tab Continue Metoprolol Tartrate 12.5 mg PO BID@0900,2099 FLUoxetine HCL [PROzac] 20 mg PO DAILY@0900 guaiFENesin [Mucinex] 600 mg PO Q12H PRN PRN Reason: Congestion Acetaminophen Tab [Tylenol] 650 mg PO Q4H PRN PRN Reason: Pain Lactose-Reduced Food [Ensure Plus] 120 ml PO BID@0900,1700 Pantoprazole Sodium [Protonix] 40 mg PO DAILY@0900 Sennosides-Docusate Sodium [Senokot-S] 2 tab PO DAILY@0900 Psyllium Husk 100% [Metamucil Packet] 6 gm PO BID@09,2099 Ondansetron HCl [Zofran] 4 mg PO Q8H PRN PRN Reason: Nausea Clopidogrel [Plavix] 75 mg PO DAILY@0900 Aspirin 81 mg PO DAILY@0900 HYDROcodone/APAP 5-325MG [[place] 5-325] 1 tab PO TID PRN #9 tab PRN Reason: Pain Diazepam [Valium] 5 mg PO HS@2099 #3 tab Discharge Medication List FLUoxetine HCL [PROzac] 20 mg PO DAILY@0900 07/17/18 [History] Metoprolol Tartrate 12.5 mg PO BID@0900,209907/17/18 [History] Acetaminophen Tab [Tylenol] 650 mg PO Q4H PRN 09/19/18 [History] Aspirin 81 mg PO DAILY@0909/19/18 [History] Clopidogrel [Plavix] 75 mg PO DAILY@0909/19/18 [History] Lactose-Reduced Food [Ensure Plus] 120 ml PO BID@0900,1700 09/19/18 [History] Ondansetron HCl [Zofran] 4 mg PO Q8H PRN 09/19/18 [History] Pantoprazole Sodium [Protonix] 40 mg PO DAILY@0909/19/18 [History] Psyllium Husk 100% [Metamucil Packet] 6 gm PO BID@0900,209909/19/18 [History] Sennosides-Docusate Sodium [Senokot-S] 2 tab PO DAILY@0900 09/19/18 [History] guaiFENesin [Mucinex] 600 mg PO Q12H PRN 09/19/18 [History] Cefuroxime Axetil [Ceftin] 500 mg PO BID #14 tab 11/30/18 [Rx] Diazepam [Valium] 5 mg PO HS@2100 #3 tab 11/30/18 [Rx] HYDROcodone/APAP 5-325MG [[place] 5-325] 1 tab PO TID PRN #9 tab 11/30/18 [Rx] Follow up Appointment(s)/Referral(s): Lenny Kearney MD [Primary Care Provider] - 12/01/18
[2018-11-30 14:11] VITALS: BP 155/71; PULSE 66; RESP 18; TEMP 97.7
[2018-11-30 15:50] VITALS: BMI 24.2
[2018-11-30] MEDS ORDERED: DIAZEPAM 5 MG TAB PO SCH (23:04)
== END 2018-11-30 15:47 ==
LOC: EC 17:59 → 3NMEDONC 21:41
PROVIDERS: ADMIT Hospitalist; ATTEND Hospitalist
DX: T83.511A Infection and inflammatory reaction due to indwelling urethral catheter, initial encounter (principal); N30.90 Cystitis, unspecified without hematuria; F05 Delirium due to known physiological condition; I48.19 Other persistent atrial fibrillation; N40.1 Benign prostatic hyperplasia with lower urinary tract symptoms; R33.8 Other retention of urine; I25.10 Atherosclerotic heart disease of native coronary artery without angina pectoris; E86.0 Dehydration; I13.0 Hypertensive heart and chronic kidney disease with heart failure and stage 1 through stage 4 chronic kidney disease, or unspecified chronic kidney disease; N18.3 Chronic kidney disease, stage 3 (moderate); I50.9 Heart failure, unspecified; E11.22 Type 2 diabetes mellitus with diabetic chronic kidney disease; E11.51 Type 2 diabetes mellitus with diabetic peripheral angiopathy without gangrene; E11.36 Type 2 diabetes mellitus with diabetic cataract; H26.9 Unspecified cataract; K57.90 Diverticulosis of intestine, part unspecified, without perforation or abscess without bleeding; R22.43 Localized swelling, mass and lump, lower limb, bilateral; M48.02 Spinal stenosis, cervical region; J44.9 Chronic obstructive pulmonary disease, unspecified; E78.5 Hyperlipidemia, unspecified; L98.9 Disorder of the skin and subcutaneous tissue, unspecified; K59.00 Constipation, unspecified; M19.91 Primary osteoarthritis, unspecified site; Z79.82 Long term (current) use of aspirin; Z79.02 Long term (current) use of antithrombotics/antiplatelets; Z79.899 Other long term (current) drug therapy; Z88.2 Allergy status to sulfonamides; Z87.891 Personal history of nicotine dependence; Z16.24 Resistance to multiple antibiotics; Z89.512 Acquired absence of left leg below knee; W06.XXXA Fall from bed, initial encounter; Y92.129 Unspecified place in nursing home as the place of occurrence of the external cause; Z87.01 Personal history of pneumonia (recurrent); Z87.440 Personal history of urinary (tract) infections; Z95.1 Presence of aortocoronary bypass graft; Z87.19 Personal history of other diseases of the digestive system; Z82.3 Family history of stroke; Z81.1 Family history of alcohol abuse and dependence; Z80.9 Family history of malignant neoplasm, unspecified
CPT/HCPCS: 96366; 96372; 96375; 96361; 96365; 99285; 36415; 93005; 97162; 97166; 80053 ×2; 83735; 84100; 84484; 85025 ×2; 85610; 85730; 81001; 87086; 87077; 87186; 72170; 73562; 72125; 70450; G0378 ×2; J2060; J0696 ×2; J1650

== ENCOUNTER 2018-12-18 06:07 | Emergency (ER) | payer MEDICARE, OTHER ==
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
[2018-12-18 06:16] VITALS: BP 152/59; PULSE 78; RESP 18; TEMP 98.7
== END 2018-12-18 06:21 | disposition home or self-care (01) ==
LOC: EC 06:07
DX: Z46.6 Encounter for fitting and adjustment of urinary device (principal); F03.90 Unspecified dementia, unspecified severity, without behavioral disturbance, psychotic disturbance, mood disturbance, and anxiety; I48.0 Paroxysmal atrial fibrillation; I25.119 Atherosclerotic heart disease of native coronary artery with unspecified angina pectoris; E78.5 Hyperlipidemia, unspecified; M19.90 Unspecified osteoarthritis, unspecified site; I13.0 Hypertensive heart and chronic kidney disease with heart failure and stage 1 through stage 4 chronic kidney disease, or unspecified chronic kidney disease; E11.22 Type 2 diabetes mellitus with diabetic chronic kidney disease; E11.51 Type 2 diabetes mellitus with diabetic peripheral angiopathy without gangrene; I50.9 Heart failure, unspecified; N18.3 Chronic kidney disease, stage 3 (moderate); N40.0 Benign prostatic hyperplasia without lower urinary tract symptoms; Z79.02 Long term (current) use of antithrombotics/antiplatelets; Z79.82 Long term (current) use of aspirin; Z79.899 Other long term (current) drug therapy; Z88.2 Allergy status to sulfonamides; Z95.1 Presence of aortocoronary bypass graft; Z95.5 Presence of coronary angioplasty implant and graft; Z87.891 Personal history of nicotine dependence; Z89.512 Acquired absence of left leg below knee
CPT/HCPCS: 51702; 99283

== ENCOUNTER 2019-03-22 09:57 | Inpatient (IN) | payer MEDICARE, OTHER ==
[2019-03-22] MEDS ORDERED: SODIUM CHLORIDE 0.9% 1,000 ML IV STA (10:33)
[2019-03-22 11:19] LABS: Partial Thromboplastin Time 25.8 sec (22.0-30.0); Prothrombin Time 10.6 sec (9.0-12.0)
[2019-03-22 11:21] LABS: Albumin 3.8 g/dL (3.5-5.0); Calcium 9.5 mg/dL (8.4-10.2); Potassium 5.1 mmol/L (3.5-5.1); Total Bilirubin 0.5 mg/dL (0.2-1.3)
--- NOTE | 2019-03-22 11:25 | CT ---
EXAMINATION TYPE: CT brain moo wo con DATE OF EXAM: 03/22/2019 COMPARISON: 11/29/2018 HISTORY: Patient poor historian CT DLP: 1442.5 mGycm, Automated exposure control for dose reduction was used. CONTRAST: Patient injected with 0 mL of Isovue 300. CT of the brain is performed utilizing 3 mm thick sections through the posterior fossa and 3 mm thick sections through the remaining calvarium. Study is performed within 24 hours of arrival to the hospital. No abnormal hyperdensity is present to suggest an acute intracranial hemorrhage. No mass lesion is evident. No acute infarcts are evident. Periventricular white matter patchy hypodensity is present, likely on the basis of chronic white matter ischemic changes. This is stable from comparison. Ventricles and sulci are prominent for the patient age. Some focal atrophic type change may be prese nt along the medial left frontal lobe, and along the lateral right frontal parietal region. There is mucosal thickening with possible air-fluid level within the left maxillary sinus. Paranasal sinuses mastoid air cells are otherwise clear. IMPRESSIONS: 1. Chronic appearing periventricular white matter ischemic changes with atrophy. 2. No acute intracranial process or significant change from prior exam. 3. Clinical correlation recommended for acute left maxillary sinusitis. CT cervical spine. COMPARISON: None CT of the cervical spine is performed in the axial plane at 2 mm thick sections. Reconstructed image s in the coronal, and sagittal plane are reviewed on the computer. No acute fractures are evident. Vertebral body alignment is normal. There is narrowing of disc height throughout the cervical spine. Some large anterior vertebral body s purring is present C5-6. Milder anterior vertebral body spurring and some fusion of the lower cervica l spine and upper thoracic spine is present. Uncovertebral joint hypertrophy is present with narrowin g of C7-T1 and C6-7 and C5-6. Right foraminal narrowing at C4-5 is present. Vertebral body heights are preserved. No spinal canal stenosis is evident. IMPRESSIONS: 1. Degenerative disc changes. 2. Uncovertebral joint hypertrophy contributing to some foraminal narrowing 3. No acute osseous abnormality.
[2019-03-22 11:27] LABS: Basophils % (A) 0 %; Eosinophils # (A) 0.3 k/uL (0-0.7); Eosinophils % (A) 3 %; HCT 37.4 % (39.0-53.0); HGB 12.1 gm/dL (13.0-17.5); Lymphocytes # (A) 0.7 k/uL (1.0-4.8); Lymphocytes % (A) 6 %; MCH 31.3 pg (25.0-35.0); MCHC 32.5 g/dL (31.0-37.0); MCV 96.4 fL (80.0-100.0); Mean Platelet Volume 9.7; Monocytes # (A) 0.6 k/uL (0-1.0); Monocytes % (A) 5 %; Neutrophils # (A) 10.1 k/uL (1.3-7.7); Neutrophils % (A) 86 %; Platelet Count 223 k/uL (150-450); RBC 3.88 m/uL (4.30-5.90); RDW 12.9 % (11.5-15.5); WBC 11.9 k/uL (3.8-10.6)
[2019-03-22 11:48] LABS: Appearance,Urine Cloudy (Clear); Bacteria,Urine Occasional /hpf; Bilirubin,Urine Negative (Negative); Blood,Urine Moderate (Negative); Color,Urine Yellow; Glucose,Urine (UA) Negative (Negative); Ketones,Urine Negative (Negative); Leukocyte Esterase,Urine Large (Negative); Nitrite,Urine Negative (Negative); PH, Urine 6.5 (5.0-8.0); Protein,Urine 2+ (Negative); RBC,Urine >182 /hpf (0-5); Specific Gravity,Urine 1.017 (1.001-1.035); Urobilinogen,Urine <2.0 mg/dL (<2.0); WBC,Urine >182 /hpf (0-5)
[2019-03-22] MEDS ORDERED: cefTRIAXone IN SWFI 1,000 MG/10 ML SYRINGE IVP STA (11:56)
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
--- NOTE | 2019-03-22 12:01 | XR ---
EXAMINATION TYPE: XR chest 2V DATE OF EXAM: 03/22/2019 COMPARISON: 07/18/2018 TECHNIQUE: PA and lateral views submitted. HISTORY: Cough possible pneumonia FINDINGS: Heart is enlarged. Postoperative change. Underlying COPD and chronic interstitial lung disease with b asilar infiltrate and small left effusion. Arthropathy of the shoulders and diffuse osteopenia. Degen erative change of the spine. IMPRESSION: 1. COPD with probable chronic interstitial lung disease, cardiomegaly and left basilar infiltrate wit h small effusion.
[2019-03-22] MEDS ORDERED: LIDOCAINE URO-JET JELLY 2% 5 ML KIT URETHRAL ONE (13:24)
[2019-03-22] MEDS ORDERED: MORPHINE SULFATE 4 MG/ML SYRINGE IVP STA (13:39)
[2019-03-22] MEDS ORDERED: ACETAMINOPHEN TAB 325 MG TAB PO PRN (13:58)
[2019-03-22] MEDS ORDERED: ONDANSETRON 4 MG/2 ML VIAL IVP PRN (13:58)
[2019-03-22] MEDS ORDERED: NALOXONE 0.4 MG/ML 1 ML VIAL IV PRN (13:58)
[2019-03-22] MEDS ORDERED: IBUPROFEN 400 MG TAB PO PRN (13:58)
[2019-03-22] MEDS ORDERED: HYDROmorphone 0.5 MG/0.5 ML SYRINGE IVP PRN (13:58)
[2019-03-22] MEDS ORDERED: MORPHINE SULFATE 4 MG/ML SYRINGE IV PRN (13:58)
[2019-03-22] MEDS: SODIUM CHLORIDE 0.9% 1,000 ML IV SCH (17:14)
[2019-03-22] MEDS: METOPROLOL TARTRATE 12.5 MG TAB PO SCH (20:24)
[2019-03-22] MEDS: PSYLLIUM HUSK 100% 6 GM PACKET PO SCH (20:24)
[2019-03-22] MEDS: DIAZEPAM 5 MG TAB PO SCH (20:25)
[2019-03-22] MEDS: BESIFLOXACIN HCL RIGHT EYE SCH (20:26)
[2019-03-22] MEDS: DIFLUPREDNATE BOTH EYES SCH (20:26)
[2019-03-22] MEDS: HYDROcodone/APAP 5-325MG 1 EACH TAB PO PRN (20:31)
[2019-03-22] MEDS: SODIUM CHLORIDE 5% OPHTH DROPS 15 ML BTL BOTH EYES SCH (20:58)
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
[2019-03-23] MEDS: DIFLUPREDNATE BOTH EYES SCH ×2 (08:04→21:12)
[2019-03-23] MEDS: BESIFLOXACIN HCL RIGHT EYE SCH ×3 (08:04→21:13)
[2019-03-23] MEDS: METOPROLOL TARTRATE 12.5 MG TAB PO SCH ×2 (08:08→21:11)
[2019-03-23 08:09] LABS: Basophils % (A) 1 %; Eosinophils # (A) 0.5 k/uL (0-0.7); Eosinophils % (A) 7 %; HCT 32.2 % (39.0-53.0); HGB 10.4 gm/dL (13.0-17.5); Lymphocytes # (A) 0.7 k/uL (1.0-4.8); Lymphocytes % (A) 10 %; MCH 31.8 pg (25.0-35.0); MCHC 32.3 g/dL (31.0-37.0); MCV 98.4 fL (80.0-100.0); Mean Platelet Volume 9.8; Monocytes # (A) 0.4 k/uL (0-1.0); Monocytes % (A) 6 %; Neutrophils # (A) 5.3 k/uL (1.3-7.7); Neutrophils % (A) 75 %; Platelet Count 179 k/uL (150-450); RBC 3.27 m/uL (4.30-5.90); RDW 13.2 % (11.5-15.5); WBC 7.1 k/uL (3.8-10.6)
[2019-03-23] MEDS: PSYLLIUM HUSK 100% 6 GM PACKET PO SCH ×2 (08:09→21:11)
[2019-03-23] MEDS: SODIUM CHLORIDE 5% OPHTH DROPS 15 ML BTL BOTH EYES SCH ×3 (08:10→21:12)
[2019-03-23 08:34] LABS: Calcium 8.8 mg/dL (8.4-10.2)
[2019-03-23] MEDS ORDERED: PANTOPRAZOLE 40 MG/10 ML VIAL IV SCH (09:00)
[2019-03-23] MEDS: HYDROcodone/APAP 5-325MG 1 EACH TAB PO PRN (09:11)
[2019-03-23] MEDS: SODIUM CHLORIDE 0.9% 1,000 ML IV SCH (14:17)
[2019-03-23] MEDS ORDERED: NA PHOS,M-B/NA PHOS,DI-BA 133 ML ENEMA RECTAL PRN (14:55)
[2019-03-23] MEDS ORDERED: BISACODYL 10 MG SUPP RECTAL PRN (14:55)
[2019-03-23] MEDS ORDERED: MAGNESIUM HYDROXIDE 2,400 MG/10 ML CUP PO PRN (14:55)
[2019-03-23] MEDS ORDERED: ONDANSETRON 4 MG TAB PO PRN (14:55)
[2019-03-23] MEDS: CLOTRIMAZOLE/BETAMETH 1-0.05% CREAM 45 GM TUBE TOPICAL SCH ×2 (16:06→21:12)
[2019-03-23] MEDS ORDERED: NON FORMULARY DRUG (Lactose-Reduced Food [Ensure Plus] 120 ML) PO SCH (17:00)
[2019-03-23] MEDS: DIAZEPAM 5 MG TAB PO SCH (21:11)
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
[2019-03-24] MEDS: HYDROcodone/APAP 5-325MG 1 EACH TAB PO PRN ×2 (05:16→17:39)
[2019-03-24 05:33] LABS: Glucose,Whole Blood 106 mg/dL (75-99)
[2019-03-24 06:29] LABS: Basophils # (A) 0.2 k/uL (0-0.2); Basophils % (A) 2 %; Calcium 8.8 mg/dL (8.4-10.2); Eosinophils # (A) 0.5 k/uL (0-0.7); Eosinophils % (A) 6 %; HCT 31.8 % (39.0-53.0); HGB 10.3 gm/dL (13.0-17.5); Lymphocytes # (A) 0.9 k/uL (1.0-4.8); Lymphocytes % (A) 10 %; MCH 31.4 pg (25.0-35.0); MCHC 32.5 g/dL (31.0-37.0); MCV 96.8 fL (80.0-100.0); Mean Platelet Volume 10.7; Monocytes # (A) 0.7 k/uL (0-1.0); Monocytes % (A) 8 %; Neutrophils # (A) 6.6 k/uL (1.3-7.7); Neutrophils % (A) 73 %; Platelet Count 162 k/uL (150-450); RBC 3.28 m/uL (4.30-5.90); RDW 13.2 % (11.5-15.5)
[2019-03-24 06:51] LABS: Potassium 5.2 mmol/L (3.5-5.1)
[2019-03-24] MEDS: SENNOSIDES-DOCUSATE SODIUM 1 EACH TAB PO SCH (07:24)
[2019-03-24] MEDS: ASPIRIN 81 MG PO SCH (07:24)
[2019-03-24] MEDS: CLOPIDOGREL 75 MG TAB PO SCH (07:24)
[2019-03-24] MEDS: METOPROLOL TARTRATE 12.5 MG TAB PO SCH ×2 (07:24→20:41)
[2019-03-24] MEDS: PANTOPRAZOLE 40 MG TABLET PO SCH (07:24)
[2019-03-24] MEDS: SODIUM CHLORIDE 5% OPHTH DROPS 15 ML BTL BOTH EYES SCH ×3 (07:25→20:42)
[2019-03-24] MEDS: KETOROLAC 0.5% OPHTH DROPS 5 ML BTL BOTH EYES SCH ×4 (07:25→20:41)
[2019-03-24] MEDS: FLUoxetine HCL 10 MG CAP PO SCH (07:25)
[2019-03-24] MEDS: PSYLLIUM HUSK 100% 6 GM PACKET PO SCH ×2 (07:25→20:41)
[2019-03-24] MEDS: CLOTRIMAZOLE/BETAMETH 1-0.05% CREAM 45 GM TUBE TOPICAL SCH ×2 (07:26→20:42)
[2019-03-24] MEDS: BESIFLOXACIN HCL RIGHT EYE SCH ×3 (09:16→20:43)
[2019-03-24] MEDS: DIFLUPREDNATE BOTH EYES SCH ×2 (09:16→20:42)
[2019-03-24] MEDS: SODIUM CHLORIDE 0.9% 1,000 ML IV SCH (15:56)
[2019-03-24] MEDS: DIAZEPAM 5 MG TAB PO SCH (20:41)
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
[2019-03-25] MEDS: SODIUM CHLORIDE 0.9% 1,000 ML IV SCH ×2 (01:51→13:29)
[2019-03-25] MEDS: METOPROLOL TARTRATE 12.5 MG TAB PO SCH ×2 (06:56→20:19)
[2019-03-25] MEDS: ASPIRIN 81 MG PO SCH (06:56)
[2019-03-25] MEDS: SENNOSIDES-DOCUSATE SODIUM 1 EACH TAB PO SCH (06:56)
[2019-03-25] MEDS: PANTOPRAZOLE 40 MG TABLET PO SCH (06:56)
[2019-03-25] MEDS: PSYLLIUM HUSK 100% 6 GM PACKET PO SCH ×2 (06:56→20:19)
[2019-03-25] MEDS: CLOPIDOGREL 75 MG TAB PO SCH (06:56)
[2019-03-25] MEDS: HYDROcodone/APAP 5-325MG 1 EACH TAB PO PRN ×2 (06:57→20:21)
[2019-03-25] MEDS: KETOROLAC 0.5% OPHTH DROPS 5 ML BTL BOTH EYES SCH ×4 (07:10→21:34)
[2019-03-25] MEDS: CEFEPIME 1 GM in SODIUM CHLORIDE 0.9% 50 ML IVPB SCH ×2 (07:11→20:27)
[2019-03-25] MEDS: CLOTRIMAZOLE/BETAMETH 1-0.05% CREAM 45 GM TUBE TOPICAL SCH ×2 (07:11→20:27)
[2019-03-25] MEDS: SODIUM CHLORIDE 5% OPHTH DROPS 15 ML BTL BOTH EYES SCH ×3 (07:11→20:28)
[2019-03-25] MEDS: FLUoxetine HCL 10 MG CAP PO SCH (07:13)
[2019-03-25] MEDS: BESIFLOXACIN HCL RIGHT EYE SCH ×3 (08:22→21:33)
[2019-03-25] MEDS: DIFLUPREDNATE BOTH EYES SCH ×2 (08:22→20:42)
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
--- NOTE | 2019-03-25 16:34 | CDI ---
Documentation Clarification Form Date: 03/25/2019 04:12:23 PM From: Liliane Kelly RN, CCDS Admit Date: 03/24/2019 09:01:00 AM Patient Name: Darshan Wilson Visit Number: [id number] Discharge Date: ATTENTION: The Clinical Documentation Specialists (CDI) and [facility] Coding Staff appreciate your assistance in clarifying documentation. Please respond to the clarification below the line at the bottom and electronically sign. The CDI & [facility] Coding staff will review the response and follow-up if needed. Please note: Queries are made part of the Legal Health Record. If you have any questions, please contact the author of this message via ITS. Dr. Donovan Salazar Acute urinary tract infection, complicated, with chronic indwelling Merida catheter was documented in the H&P on 03/22/19 and continues in your subsequent progress notes, and further clarification is indicated. History/Risk Factors: Chronic Merida catheter POA), Chronic Urinary retention, Recurrent urinary tract infections, Benign prostatic hyperplasia (BPH) Clinical Indicators: 89-year-old male present with indwelling Merida catheter does report history of urinary tract. infection. Urinalysis is positive for infection. Vital Signs: (03/22/19@09:58) 134/61 66 18 976 WBC: 11.9 on 03/22/19 10:47, Urinalysis: Large Leukocyte esterase on 03/22/19 at 10:47 Urine Culture: Preliminary showing Pseudomonas aeruginosa, Presumptive Staph aureus on 03/22/19 at 11:25 Treatment Change Merida catheter .9% saline @ 75mls/hr Cefepime 1 gm IVPB Q 12/HRS Please document the condition that these clinical indicators signify, and cause if known: UTI -If due to Merida catheter, -Specify organism, if known -Identify location of infection (if known) Bladder, Kidney, Urethra Contaminated specimen Other, please specify Unable to determine Present on Admission: Yes No (Last Revision: November 2016) UTI -If due to Merida catheter, Present on Admission: STEPHENIE
--- NOTE | 2019-03-25 22:05 | PN ---
PROGRESS NOTE ADDENDUM: DATE OF SERVICE: 03/25/2019 REVIEW OF SYSTEMS: Cardiovascular system: No angina. Respirations As mentioned earlier. GI: As mentioned earlier. CENTRAL NERVOUS SYSTEM: No numbness or weakness. CURRENT MEDICATIONS: Reviewed and include: 1. Tylenol 650 q.6h p.r.n. 2. Warren 5 mg q8. 3. Aspirin 81 mg daily. 4. Lotrisone cream for local application. 5. Dulcolax 10 mg p.r.n. 6. Cefepime 1 g IV b.i.d. 7. Plavix 75 mg p.o. daily. 8. Prozac 10 mg p.o. daily. 9. Motrin 400 mg q.6h p.r.n. 11.Milk of magnesia. 12.Lopressor 12.5 mg b.i.d. 13.Narcan 0.2 q.2 p.r.n. 15.Zofran p.r.n. 16.Protonix. 17.Metamucil. 18.Edita 128. Please see the rest of the dictation for further details. MMODL / IJN: [id number] / MTDD
[2019-03-26] MEDS: HYDROcodone/APAP 5-325MG 1 EACH TAB PO PRN (03:58)
[2019-03-26] MEDS: PANTOPRAZOLE 40 MG TABLET PO SCH (08:54)
[2019-03-26] MEDS: SENNOSIDES-DOCUSATE SODIUM 1 EACH TAB PO SCH (08:54)
[2019-03-26] MEDS: ASPIRIN 81 MG PO SCH (08:54)
[2019-03-26] MEDS: METOPROLOL TARTRATE 12.5 MG TAB PO SCH ×2 (08:54→21:01)
[2019-03-26] MEDS: DIFLUPREDNATE BOTH EYES SCH ×2 (08:54→21:02)
[2019-03-26] MEDS: CLOPIDOGREL 75 MG TAB PO SCH (08:54)
[2019-03-26] MEDS: CLOTRIMAZOLE/BETAMETH 1-0.05% CREAM 45 GM TUBE TOPICAL SCH ×2 (08:55→21:02)
[2019-03-26] MEDS: CEFEPIME 1 GM in SODIUM CHLORIDE 0.9% 50 ML IVPB SCH ×2 (08:55→21:01)
[2019-03-26] MEDS: BESIFLOXACIN HCL RIGHT EYE SCH ×3 (08:55→21:03)
[2019-03-26] MEDS: FLUoxetine HCL 10 MG CAP PO SCH (08:56)
[2019-03-26] MEDS: KETOROLAC 0.5% OPHTH DROPS 5 ML BTL BOTH EYES SCH ×4 (08:56→21:02)
[2019-03-26] MEDS: SODIUM CHLORIDE 5% OPHTH DROPS 15 ML BTL BOTH EYES SCH ×3 (08:56→21:02)
[2019-03-26] MEDS: PSYLLIUM HUSK 100% 6 GM PACKET PO SCH ×2 (08:57→21:01)
[2019-03-26] MEDS: SODIUM CHLORIDE 0.9% 1,000 ML IV SCH (08:57)
[2019-03-26 09:17] LABS: Basophils % (A) 1 %; Eosinophils # (A) 0.3 k/uL (0-0.7); Eosinophils % (A) 3 %; HCT 33.4 % (39.0-53.0); HGB 10.6 gm/dL (13.0-17.5); Lymphocytes # (A) 0.8 k/uL (1.0-4.8); Lymphocytes % (A) 8 %; MCHC 31.9 g/dL (31.0-37.0); MCV 97.4 fL (80.0-100.0); Mean Platelet Volume 10.3; Monocytes # (A) 0.5 k/uL (0-1.0); Monocytes % (A) 5 %; Neutrophils # (A) 8.3 k/uL (1.3-7.7); Neutrophils % (A) 83 %; Platelet Count 191 k/uL (150-450); RBC 3.43 m/uL (4.30-5.90); RDW 12.8 % (11.5-15.5)
[2019-03-26 09:34] LABS: Calcium 8.8 mg/dL (8.4-10.2); Potassium 4.6 mmol/L (3.5-5.1)
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
[2019-03-26 23:52] VITALS: RESP 20
[2019-03-27 06:20] VITALS: BP 169/74; PULSE 87; TEMP 97.6
[2019-03-27] MEDS: SODIUM CHLORIDE 0.9% 1,000 ML IV SCH (06:32)
[2019-03-27] MEDS: ASPIRIN 81 MG PO SCH (07:07)
[2019-03-27] MEDS: SENNOSIDES-DOCUSATE SODIUM 1 EACH TAB PO SCH (07:08)
[2019-03-27] MEDS: PANTOPRAZOLE 40 MG TABLET PO SCH (07:08)
[2019-03-27] MEDS: PSYLLIUM HUSK 100% 6 GM PACKET PO SCH (07:08)
[2019-03-27] MEDS: METOPROLOL TARTRATE 12.5 MG TAB PO SCH (07:08)
[2019-03-27] MEDS: CLOPIDOGREL 75 MG TAB PO SCH (07:08)
[2019-03-27] MEDS: CEFEPIME 1 GM in SODIUM CHLORIDE 0.9% 50 ML IVPB SCH (07:09)
[2019-03-27] MEDS: FLUoxetine HCL 10 MG CAP PO SCH (07:09)
[2019-03-27] MEDS: SODIUM CHLORIDE 5% OPHTH DROPS 15 ML BTL BOTH EYES SCH ×2 (07:13→13:48)
[2019-03-27] MEDS: KETOROLAC 0.5% OPHTH DROPS 5 ML BTL BOTH EYES SCH ×2 (07:13→13:48)
[2019-03-27] MEDS: BESIFLOXACIN HCL RIGHT EYE SCH (07:14)
[2019-03-27] MEDS: CLOTRIMAZOLE/BETAMETH 1-0.05% CREAM 45 GM TUBE TOPICAL SCH (07:14)
[2019-03-27] MEDS: DIFLUPREDNATE BOTH EYES SCH (07:15)
[2019-03-27 10:23] LABS: Calcium 8.9 mg/dL (8.4-10.2); Potassium 4.2 mmol/L (3.5-5.1)
--- NOTE | 2019-03-27 11:17 | P.DS ---
Providers Date of admission: 03/24/19 09:01 Expected date of discharge: 03/27/19 Attending physician: Mg Wade Primary care physician: Lenny Kearney [facility] Course: History of presenting complaint: This is a pleasant 88-year-old patient who follows with visiting physicians Dr. Roney Monahan. Patient is currently a resident of the [facility]. Patient chronic stable medical conditions include atrial fibrillation, coronary artery disease, COPD, diabetes, hyperlipidemia, osteoarthritis, chronic kidney disease, BPH causing urinary retention with a chronic Merida catheter. Patient also has paroxysmal atrial fibrillation, left below-knee amputation arthritis. Patient had taken a fall out of the bed. Admitted-with acute UTI, with cultures positive for Pseudomonas aeruginosa and an MSSA. Also acute kidney injury. Patient responded well to antibiotics and fluids. Creatinine that was up to 1.47 did come down to 0.92. Today-tolerating his diet. Comfortable. Physical examination: VITAL SIGNS: 97.6, 87, 20, 169/74, 93% on 2 L GENERAL: BMI 24.4, laying in bed, comfortable. EYES: Pupils equal. Conjunctiva normal. HEENT: External appearance of nose and ears normal, oral cavity grossly normal. NECK: JVD not raised; masses not palpable. HEART: First and second heart sounds are normal; no edema. LUNGS: Respiratory rate normal; decreased breath sounds. ABDOMEN: Soft, nontender, liver spleen not palpable, no masses palpable. Merida catheter. PSYCH: Awake answering simple questionsl. EXTREMITY: Left above-knee amputation INVESTIGATIONS, reviewed in the clinical context: White count and hemoglobin 10.6 potassium 4.2 Admission labs: BUN 39 and creatinine 1.36 Urine culture-Pseudomonas AERUGINOSA,'s Staphylococcus aureus EKG-sinus rhythm, right bundle branch block Discharge diagnosis: -Acute UTI from cystitis , from pseudomonas aeruginosa and Staphylococcus aureus. -Paroxysmal atrial fibrillation, currently in sinus rhythm -Coronary artery disease, with coronary bypass -Chronic congestive heart failure, from gastric dysfunction EF 55-60% -Hypertensive heart disease, with moderate concentric left ventricle hypertrophy -COPD in an ex-smoker -Hyperlipidemia -Primary osteoarthritis -BPH -Chronic urinary retention because of BPH with chronic Merida catheter -Left below-knee amputation -DO NOT RESUSCITATE Disposition: [facility] Patient Condition at Discharge: Stable Plan - Discharge Summary Discharge Rx Participant: No New Discharge Prescriptions: New Ciprofloxacin HCl [Cipro] 500 mg PO Q12HR #14 tablet Cephalexin [Keflex] 250 mg PO Q6HR #28 cap Continue Metoprolol Tartrate 12.5 mg PO BID@0900,2100 Acetaminophen Tab [Tylenol] 650 mg PO Q4H PRN PRN Reason: Pain Lactose-Reduced Food [Ensure Plus] 120 ml PO BID@0900,1700 Pantoprazole Sodium [Protonix] 40 mg PO DAILY@0900 Sennosides-Docusate Sodium [Senokot-S] 2 tab PO DAILY@0900 Psyllium Husk 100% [Metamucil Packet] 6 gm PO BID@0900,2100 Ondansetron HCl [Zofran] 4 mg PO Q8H PRN PRN Reason: Nausea Clopidogrel [Plavix] 75 mg PO DAILY@0900 Aspirin 81 mg PO DAILY@0900 Besifloxacin HCl [Besivance] 1 drop RIGHT EYE TID Bisacodyl [Dulcolax] 10 mg RECTAL DAILY PRN PRN Reason: Constipation Bromfenac Sodium [Prolensa Ophth Soln] 1 drop BOTH EYES DAILY@0600 Clotrimazole/Betamethasone Dip [Lotrisone Cream] 1 applic TOPICAL Q12H Difluprednate [Durezol] 1 drop BOTH EYES BID@0900,2100 FLUoxetine HCL [PROzac] 10 mg PO DAILY@0900 Magnesium Hydroxide [Milk of Magnesia] 2,400 mg PO DAILY PRN PRN Reason: Constipation Na Phos,M-B/Na Phos,Di-Ba [Fleet Adult] 133 ml RECTAL DAILY PRN PRN Reason: Constipation Sodium Chloride 5% Ophth Soln [Edita 128] 1 drops BOTH EYES TID@0900,1300,2099 HYDROcodone/APAP 5-325MG [[place] 5-325] 1 tab PO Q8H PRN #9 tab PRN Reason: Pain Diazepam [Valium] 2.5 mg PO HS@2099 #3 tab Discharge Medication List Metoprolol Tartrate 12.5 mg PO BID@0900,2100 07/17/18 [History] Acetaminophen Tab [Tylenol] 650 mg PO Q4H PRN 09/19/18 [History] Aspirin 81 mg PO DAILY@0900 09/19/18 [History] Clopidogrel [Plavix] 75 mg PO DAILY@0900 09/19/18 [History] Lactose-Reduced Food [Ensure Plus] 120 ml PO BID@0900,1700 09/19/18 [History] Ondansetron HCl [Zofran] 4 mg PO Q8H PRN 09/19/18 [History] Pantoprazole Sodium [Protonix] 40 mg PO DAILY@0909/19/18 [History] Psyllium Husk 100% [Metamucil Packet] 6 gm PO BID@0900,209909/19/18 [History] Sennosides-Docusate Sodium [Senokot-S] 2 tab PO DAILY@0909/19/18 [History] Besifloxacin HCl [Besivance] 1 drop RIGHT EYE TID 03/22/19 [History] Bisacodyl [Dulcolax] 10 mg RECTAL DAILY PRN 03/22/19 [History] Bromfenac Sodium [Prolensa Ophth Soln] 1 drop BOTH EYES DAILY@0600 03/22/19 [History] Clotrimazole/Betamethasone Dip [Lotrisone Cream] 1 applic TOPICAL Q12H 03/22/19 [History] Difluprednate [Durezol] 1 drop BOTH EYES BID@0900,209903/22/19 [History] FLUoxetine HCL [PROzac] 10 mg PO DAILY@0903/22/19 [History] Magnesium Hydroxide [Milk of Magnesia] 2,400 mg PO DAILY PRN 03/22/19 [History] Na Phos,M-B/Na Phos,Di-Ba [Fleet Adult] 133 ml RECTAL DAILY PRN 03/22/19 [History] Sodium Chloride 5% Ophth Soln [Edita 128] 1 drops BOTH EYES TID@0900,1300,209903/22/19 [History] Cephalexin [Keflex] 250 mg PO Q6HR #28 cap 03/27/19 [Rx] Ciprofloxacin HCl [Cipro] 500 mg PO Q12HR #14 tablet 03/27/19 [Rx] Diazepam [Valium] 2.5 mg PO HS@2100 #3 tab 03/27/19 [Rx] HYDROcodone/APAP 5-325MG [[place] 5-325] 1 tab PO Q8H PRN #9 tab 03/27/19 [Rx] Follow up Appointment(s)/Referral(s): Christel,Lenny, MD [Primary Care Provider] - 1-2 days Patient Instructions/Handouts: Urinary Tract Infection in Men (DC) Activity/Diet/Wound Care/Special Instructions: Cardiac, diabetic diet.
== END 2019-03-27 13:49 | DRG 699 ==
LOC: EC 09:57 → 6NMEDSUR 13:38 → OBSVTOIN 03-24 09:01
PROVIDERS: ADMIT Hospitalist; ATTEND Hospitalist
DX: T83.511A Infection and inflammatory reaction due to indwelling urethral catheter, initial encounter (principal); N17.9 Acute kidney failure, unspecified; I13.0 Hypertensive heart and chronic kidney disease with heart failure and stage 1 through stage 4 chronic kidney disease, or unspecified chronic kidney disease; I50.32 Chronic diastolic (congestive) heart failure; N30.00 Acute cystitis without hematuria; E78.5 Hyperlipidemia, unspecified; E11.51 Type 2 diabetes mellitus with diabetic peripheral angiopathy without gangrene; E11.22 Type 2 diabetes mellitus with diabetic chronic kidney disease; B96.89 Other specified bacterial agents as the cause of diseases classified elsewhere; Z66 Do not resuscitate; E86.0 Dehydration; F03.90 Unspecified dementia, unspecified severity, without behavioral disturbance, psychotic disturbance, mood disturbance, and anxiety; G89.29 Other chronic pain; I25.10 Atherosclerotic heart disease of native coronary artery without angina pectoris; J44.9 Chronic obstructive pulmonary disease, unspecified; M13.0 Polyarthritis, unspecified; N18.3 Chronic kidney disease, stage 3 (moderate); B95.61 Methicillin susceptible Staphylococcus aureus infection as the cause of diseases classified elsewhere; W06.XXXA Fall from bed, initial encounter; J01.00 Acute maxillary sinusitis, unspecified; I48.0 Paroxysmal atrial fibrillation; L89.152 Pressure ulcer of sacral region, stage 2; N40.1 Benign prostatic hyperplasia with lower urinary tract symptoms; Z79.02 Long term (current) use of antithrombotics/antiplatelets; Z79.4 Long term (current) use of insulin; Z79.82 Long term (current) use of aspirin; Z79.899 Other long term (current) drug therapy; Z82.3 Family history of stroke; Z87.440 Personal history of urinary (tract) infections; Z87.891 Personal history of nicotine dependence; Z89.512 Acquired absence of left leg below knee; Z95.1 Presence of aortocoronary bypass graft
CPT/HCPCS: 36415; 51702; 70450; 71046; 72125; 80048; 80053; 81001; 83605; 84484; 85025; 85610; 85730; 87077; 87086; 87186; 87502; 93005; 94760; 96360; 96361; 96374; 96375; 99285

== ENCOUNTER 2019-05-06 | Inpatient (IN) | payer MEDICARE, OTHER | END 2019-05-07 16:20 | disposition hospice, home (50) | DRG 64 | PROVIDERS: ADMIT Hospitalist | CPT/HCPCS: 36415; 80053; 81001; 82803; 83605; 83735; 85025; 85610; 85730; 87040; 87077; 87086; 87186; 96361; 96365; 96375; 99285 ==